=== PATIENT | male | born 1955 | race Caucasian/White ===

== ENCOUNTER → 2018-10-10 09:50 | Outpatient (CLI) | payer OTHER, SELFPAY ==
[2018-10-10 12:43] LABS: ALB/GLOB Ratio 1.1 RATIO (0.9-2.4); AST(SGOT) 109 U/L (15-37); Alanine Aminotransfer ALT/SGPT 85 U/L (16-61); Alkaline Phosphatase 91 U/L (45-117); Anion Gap 10 (5-15); BUN 14 mg/dL (7-18); BUN/Creat Ratio 18.1 RATIO (10-20); Calcium,Total 8.7 mg/dL (8.5-10.1); Chloride 102 mmol/L (98-107); Cholesterol 246 mg/dL (200); Creatinine, Serum 0.77 mg/dL (0.70-1.30); EST Glomerular Filtration Rate 108 mL/min (>60); Est Glom Filt Rate - Afr Amer 131 mL/min (>60); Globulin 3.5 g/dL (2.2-4.2); Glucose 104 mg/dL (74-106); High Density Lipoprotein 54 mg/dL; PSA,Total - Annual Screen 3.92 ng/mL (0.00-4.00); Potassium 3.3 mmol/L (3.5-5.1); Protein, Total 7.5 g/dL (6.4-8.2); Sodium Level 139 mmol/L (136-145); Thyroid Stim Hormone (TSH) 1.59 uIU/mL (0.358-3.74); Triglycerides 187 mg/dL; Very Low Density Lipoprotein 37 mg/dL (5-40)
== END ==
PROVIDERS: Family Provider Family Medicine; PCP Family Medicine; Visit Provider Family Medicine
DX: E11.9 Type 2 diabetes mellitus without complications (principal); Z12.5 Encounter for screening for malignant neoplasm of prostate
CPT/HCPCS: 36415; 80053; 80061; 84153; 84443; G0103

== ENCOUNTER 2019-09-18 22:14 | Emergency (ER) | payer OTHER, SELFPAY ==
[2019-09-18 22:18] VITALS: BP 145/91; PULSE 89; RESP 18; TEMP 36.5; O2SAT 100; BMI 26.4
--- NOTE | 2019-09-18 22:49 | CT_ITS ---
STUDY: CT BRAIN WITHOUT CONTRAST REASON FOR EXAM: Male, 64 years old. Laceration on the head. Status post fall. RADIATION DOSAGE (If Supplied By Facility): CTDIvol = ( 44.99 ) mGy, DLP = ( 897.35 ) mGycm TECHNIQUE: Transaxial CT imaging of the brain was performed without administration of intravenous contrast material. Individualized dose optimization techniques were used for this CT. COMPARISON: No relevant priors. FINDINGS: Normal soft tissue structures. Normal calvarium. Normal size ventricles and extra-axial spaces for the patient's age. Normal white matter tracts of the cerebral hemispheres. Normal basal ganglia and thalami. Normal brainstem. Normal cerebellum. There is no intracranial hemorrhage. There are no findings of an acute ischemic infarction. Normal visualized paranasal sinuses. CT/Brain/Head without Contrast IMPRESSION: Normal unenhanced CT scan of the brain. Electronically Signed: Daniela Grey MD at 23:38 EDT Tel , Service support ,
--- NOTE | 2019-09-18 22:49 | CT_ITS ---
STUDY: CT CERVICAL SPINE WITHOUT CONTRAST REASON FOR EXAM: Male, 64 years old. Laceration status post fall. RADIATION DOSAGE (If Supplied By Facility): CTDIvol = ( 22.60 ) mGy, DLP = ( 531.95 ) mGycm TECHNIQUE: High resolution transaxial imaging was performed without contrast material. Sagittal and coronal images were reconstructed. Individualized dose optimization techniques were used for this CT. COMPARISON: None FINDINGS: Normal craniovertebral junction. Normal anterior atlantoaxial articulation. Normal odontoid process. Normal cervical lordosis. Normal vertebral bodies and posterior osseous elements. C2-3: Normal endplates. Normal disc height and morphology. Normal central canal and intervertebral neuroforamina. C3-4: Normal endplates. Normal disc height and morphology. Normal central canal period severe left foraminal stenosis due to uncinate and marked facet hypertrophy. Mild right foraminal encroachment due to facet hypertrophy. C4-5: Normal endplates. Normal disc height and morphology. Normal central canal. Moderate left foraminal stenosis due to uncinate and facet hypertrophy. Right neural foramen is patent. C5-6: Normal endplates. Normal disc height and morphology. Normal central canal. Mild foraminal encroachment due to facet hypertrophy. C6-7: Normal endplates. Normal disc height and morphology. Normal central canal and intervertebral neuroforamina. C7-T1: Normal endplates. Normal disc height and morphology. Normal central canal and intervertebral neuroforamina. Normal visualized soft tissue structures. CT/Spine Cervical without Contras IMPRESSION: 1. No evidence of trauma. 2. Mild degenerative changes of the cervical spine. Electronically Signed: Daniela Grey MD at 23:48 EDT Tel , Service support ,
--- NOTE | 2019-09-18 23:36 | ED.DCSUM_ITS ---
- ER Visit Summary Date of Service: 09/18/19 Chief Complaint: Head injury History of Present Illness: The patient is a 64 M who was drinking alcohol much in football tonight. He apparently went up lost his balance fell and struck his head on the counter. No loss of consciousness. Tetanus up-to-date. No nausea vomiting. Nursing notes a large amount of bleeding coming from the right side of the scalp Physical Examination: Afebrile vital signs are stable Gen: Well-nourished well-developed strong smell of alcohol coming from the patient Head: Normocephalic 5 cm curvilinear laceration over the parietal scalp Eyes: Perrl EOMI ENT: TMs clear no rhinorrhea moist mucous membranes Neck: Supple no lymphadenopathy no JVD nontender CVS: Regular rate rhythm no murmurs normal S1-S2 Respiratory: No distress clear to auscultation bilaterally chest nontender Abdomen: Soft nontender nondistended normal bowel sounds no masses Back: Nontender Extremity: Nontender no edema Skin: Normal color no rash Neuro: alert orientated ?3 CN II-XII intact normal strength sensation reflexes gait cerebellar GCS is 15. Psych: Normal affect normal mood Test Results: CT of the brain and cervical spine were obtained which were negative for fracture or intracranial hemorrhage. Emergency Department Course and Treatment: The wound was locally anesthetized using 1% lidocaine with epinephrine. Digital pressure was applied which stopped the bleeding wound was closed using a total of 9 simple interrupted 4-0 Ethilon sutures. No further bleeding was noted. Wounds were cleansed and dressed. Stitches will need to be removed 5 to 7 days. Impression: 1. 5 cm scalp laceration with repair This note was generated with [employer] dictation software. It may contain incorrect words, spelling, and punctuation that were not noted in review of the chart prior to signing ED Disposition - Plan for ED Patient: Disposition: Home or Assisted Living Instructions: LACERATION, Scalp Referrals: Eron Moody MD [Primary Care Provider] - (in 5-7 days for suture removal)
[2019-09-19] VITALS: BP 107/64; PULSE 76; RESP 15; O2SAT 96
== END 2019-09-19 00:06 | disposition home or self-care (01) ==
PROVIDERS: Emergency Provider Emergency Medicine; Family Provider Family Medicine; PCP Family Medicine
DX: S01.01XA Laceration without foreign body of scalp, initial encounter (principal); W01.198A Fall on same level from slipping, tripping and stumbling with subsequent striking against other object, initial encounter; I10 Essential (primary) hypertension; F10.10 Alcohol abuse, uncomplicated; Y90.9 Presence of alcohol in blood, level not specified
CPT/HCPCS: 12001; 70450; 72125; 99283

== ENCOUNTER → 2019-10-14 07:39 | Outpatient (CLI) | payer OTHER, SELFPAY ==
[2019-09-18 22:18] VITALS: BMI 26.4
[2019-10-14 10:39] LABS: ALB/GLOB Ratio 1.2 RATIO (0.9-2.4); AST(SGOT) 29 U/L (15-37); Alanine Aminotransfer ALT/SGPT 34 U/L (16-61); Albumin, Serum 3.8 g/dL (3.2-5.0); Alkaline Phosphatase 68 U/L (45-117); Anion Gap 8 (5-15); BUN 22 mg/dL (7-18); BUN/Creat Ratio 36.1 RATIO (10-20); Chloride 105 mmol/L (98-107); Creatinine, Serum 0.61 mg/dL (0.70-1.30); EST Glomerular Filtration Rate 142 mL/min (>60); Est Glom Filt Rate - Afr Amer 171 mL/min (>60); Globulin 3.3 g/dL (2.2-4.2); Glucose 97 mg/dL (74-106); PSA,Total - Annual Screen 3.82 ng/mL (0.00-4.00); Potassium 3.7 mmol/L (3.5-5.1); Protein, Total 7.1 g/dL (6.4-8.2); Sodium Level 141 mmol/L (136-145)
== END ==
PROVIDERS: Family Provider Family Medicine; PCP Family Medicine; Referring Provider Family Medicine; Visit Provider Family Medicine
DX: E11.9 Type 2 diabetes mellitus without complications (principal); Z12.5 Encounter for screening for malignant neoplasm of prostate
CPT/HCPCS: 36415; 80053; 84153; G0103

== ENCOUNTER → 2020-10-19 08:55 | Outpatient (CLI) | payer OTHER, SELFPAY ==
[2020-02-04 14:58] VITALS: BMI 26.4
[2020-10-19 10:24] LABS: ALB/GLOB Ratio 1.4 RATIO (0.9-2.4); AST(SGOT) 31 U/L (15-37); Alanine Aminotransfer ALT/SGPT 43 U/L (16-61); Albumin, Serum 4.4 g/dL (3.2-5.0); Alkaline Phosphatase 68 U/L (45-117); Anion Gap 3 (5-15); BUN 16 mg/dL (7-18); Calcium,Total 9.2 mg/dL (8.5-10.1); Chloride 103 mmol/L (98-107); Cholesterol 239 mg/dL (200); Creatinine, Serum 0.76 mg/dL (0.70-1.30); EST Glomerular Filtration Rate 109 mL/min (>60); Est Glom Filt Rate - Afr Amer 132 mL/min (>60); Globulin 3.1 g/dL (2.2-4.2); Glucose 87 mg/dL (74-106); High Density Lipoprotein 60 mg/dL; PSA,Total - Annual Screen 4.93 ng/mL (0.00-4.00); Potassium 3.7 mmol/L (3.5-5.1); Protein, Total 7.5 g/dL (6.4-8.2); Sodium Level 138 mmol/L (136-145); Triglycerides 143 mg/dL; Very Low Density Lipoprotein 29 mg/dL (5-40)
== END ==
PROVIDERS: PCP Family Medicine; Visit Provider Family Medicine
DX: E11.9 Type 2 diabetes mellitus without complications (principal); E78.5 Hyperlipidemia, unspecified; Z12.5 Encounter for screening for malignant neoplasm of prostate
CPT/HCPCS: 36415; 80053; 80061; 84153; G0103

== ENCOUNTER → 2021-05-04 08:44 | Outpatient (CLI) | payer MEDICARE, OTHER, SELFPAY ==
[2020-02-04 14:58] VITALS: BMI 26.4
--- NOTE | 2021-05-04 08:50 | AAAS_ITS ---
Reason For Study: AAA Aorta Measurements Aorta Doppler Measurements Proximal aorta measures1.76 x 1.80cm. in cross- Peak systolic flow velocities within the proximal sectional axis. aorta measure 101.5 cm/sec. Proximal aorta measures1.75cm. in longitudinal Peak systolic flow velocities within the mid aorta axis. measure 119.8 cm/sec. Mid aorta measures1.66 x 1.70cm. in cross- Peak systolic flow velocities within the distal sectional axis. aorta measure 99.7 cm/sec. Mid aorta measures1.68cm. in longitudinal axis. Distal aorta measures1.83 x 1.80cm. in cross- sectional axis. Distal aorta measures1.80cm. in longitudinal axis. Left Iliac Artery Left iliac artery measures 1.22 x 1.21 cm. in the cross-sectional axis. Left iliac artery measures 1.19 cm. in the longitudinal axis. Peak systolic velocity in the left iliac artery measures 89.2 cm/sec. Right Iliac Artery Right iliac artery measures 1.36 x 1.30 cm. in the cross-sectional axis. Right iliac artery measures 1.20 cm. in the longitudinal axis. Peak systolic velocity in the right iliac artery measures 78.3 cm/sec. Procedure Aorta IVC Iliac vasculature or bypass grafts 98617. Exam performed in department. VL/AAA Screening Interpretation Summary The dimensions of the intra-abdominal aorta appear normal, without evidence of aneurysmal dilatation. The iliac arteries are also normal in caliber bilaterally. The intr a-abdominal aorta and iliac arteries are patent, demonstrating normal, pulsatile arterial flow and no rmal peak systolic velocities. Ordering Physician: Eron Moody Referring Physician: Eron Moody Performed By: Trinity Mon RVT and Student
== END ==
PROVIDERS: PCP Family Medicine; Referring Provider Family Medicine; Visit Provider Family Medicine
DX: I71.4 Abdominal aortic aneurysm, without rupture (principal)
CPT/HCPCS: 76706

== ENCOUNTER → 2021-09-27 12:32 | Outpatient (CLI) | payer MEDICARE, OTHER, SELFPAY ==
--- NOTE | 2021-09-27 12:37 | RAD_ITS ---
STUDY: X-RAY - UNILATERAL RIBS ( RIGHT ) REASON FOR EXAM: Male, 66 years old. Right-sided posterior rib pain following a fall. TECHNIQUE: 4 view(s) of the ribs. COMPARISON: None. FINDINGS: There is nondisplaced vertical fracture through the posterior lateral aspect of the right 11th rib. The visualized lung is clear and expanded. RAD/Ribs Unil 2V No CXR IMPRESSION: Nondisplaced vertical fracture along the posterior lateral aspect of the right 11th rib. Electronically Signed: Mauricio Ruiz MD at 13:23 EDT , Service support ,
--- NOTE | 2021-09-27 12:37 | RAD_ITS ---
STUDY: X-RAY - LUMBAR SPINE REASON FOR EXAM: Male, 66 years old. BACKACHE TECHNIQUE: 4 view(s) of the lumbar spine were obtained. COMPARISON: None FINDINGS: Normal lumbar lordosis. There is no substantial scoliosis. There is mild anterolisthesis of L5 on S1 (7.3 mm). There is multilevel endplate spondylosis of the lumbar vertebrae. There is multi-level degenerative disc disease with multi-level disc space narrowing. There is no demonstrated fracture. There is bilateral pars defect of L5. Bilateral facet hypertrophy, more severe from L3 to S1. The soft tissue structures are unremarkable. RAD/L/S Spine Min 4 Views IMPRESSION: Multilevel spondylosis/degenerative disease. Mild anterolisthesis of L5 on S1 with pars defect of L5. No acute fracture. Electronically Signed: Gabriela Rivas MD at 1:27 EDT , Service support ,
--- NOTE | 2021-09-27 12:45 | RAD_ITS ---
STUDY: X-RAY - THORACIC SPINE REASON FOR EXAM: Male, 66 years old. BACKACHE TECHNIQUE: 3 view(s) of the thoracic spine were obtained. COMPARISON: 04/06/2017. FINDINGS: Normal kyphosis of the thoracic spine. There is no substantial scoliosis. Questionable partial fusion of approximately T6-T7 vertebral bodies with mild wedging, unchanged since 04/06/2017. There is multilevel endplate spondylosis of the thoracic vertebrae. There is multilevel disc space narrowing of the thoracic spine. The soft tissue structures are unremarkable. RAD/Thoracic Spine 2 Views IMPRESSION: Multilevel disc degenerative disease with no acute fracture or subluxation. Electronically Signed: Gabriela Rivas MD at 0:57 EDT , Service support ,
--- NOTE | 2021-09-27 12:58 | RAD_ITS ---
STUDY: X-RAY CHEST REASON FOR EXAM: Male, 66 years old. Fall, right posterior lower rib pain TECHNIQUE: PA and lateral views of the chest. COMPARISON: None. FINDINGS: The lungs are clear and expanded. There is no demonstrated pleural abnormality. Normal size heart. Normal mediastinum and pilar. Normal visualized pulmonary arteries. Normal visualized aortic arch and descending thoracic aorta. There are diffuse degenerative changes of the visualized thoracic spine. Normal visualized ribs, clavicles, and shoulders. There is no demonstrated abnormality of the visualized soft tissue structures of the upper abdomen. RAD/Chest PA and Lateral IMPRESSION: Normal x-ray examination of the chest. Electronically Signed: Mauricio Ruiz MD at 13:21 EDT , Service support ,
== END ==
PROVIDERS: PCP Family Medicine; Referring Provider Family Medicine; Visit Provider Family Medicine
DX: M54.9 Dorsalgia, unspecified (principal); R07.81 Pleurodynia
CPT/HCPCS: 71046; 71100; 72070; 72110

== ENCOUNTER 2021-10-19 09:06 | Outpatient (CLI) | payer MEDICARE, OTHER, SELFPAY ==
[2021-10-19] MEDS: 0.9% Saline Lock 10 ML Syringe IV (09:29)
[2021-10-19 09:35] VITALS: BP 147/88; PULSE 75; RESP 16; TEMP 37.3; O2SAT 97; BMI 29.4
[2021-10-19 10:06] VITALS: BP 131/72; PULSE 72; RESP 16; TEMP 37; O2SAT 98
[2021-10-19 11:03] VITALS: BP 146/80; PULSE 80; RESP 16; TEMP 36.8; O2SAT 100
== END 2021-10-19 11:10 | disposition home or self-care (01) ==
LOC: MS3OUT 09:07 → MS3 09:07
PROVIDERS: PCP Family Medicine; Referring Provider Nurse Practitioner Adult Health; Visit Provider Nurse Practitioner Adult Health
DX: Z23 Encounter for immunization (principal); U07.1 COVID-19
CPT/HCPCS: J7050; M0245; Q0245; A4216

== ENCOUNTER → 2022-12-29 | Outpatient (CLI) | payer MEDICARE, OTHER, SELFPAY ==
--- NOTE | 2022-12-29 14:13 | RAD_ITS ---
STUDY: X-RAY - LUMBAR SPINE REASON FOR EXAM: Male, 67 years old. SCIATICA TECHNIQUE: 5 view(s) of the lumbar spine were obtained including oblique views. COMPARISON: Comparison is made with prior study dated 09/27/2021. FINDINGS: Normal lumbar lordosis. There is no substantial scoliosis. Grade 1 anterolisthesis of L5 on S1 with evidence of pars defect of the L5 vertebrae. There is multilevel endplate spondylosis of the lumbar vertebrae. There is multi-level degenerative disc disease with multi-level disc space narrowing. Facet joint osteoarthritis. There is mild atherosclerotic calcification of the abdominal aorta without a demonstrated aneurysm. RAD/L/S Spine Min 4 Views IMPRESSION: Degenerative changes of the spine, as detailed above. Facet joint osteoarthritis. Stable grade 1 anterolisthesis of L5 on S1 with pars defect of the L5 vertebrae. Electronically Signed: Mauricio Ruiz MD at 8:31 EST ,
--- NOTE | 2022-12-29 14:15 | RAD_ITS ---
INDICATION: METATARSALGIA EXAMINATION/TECHNIQUE: X-RAY - RIGHT XR Foot Min 3 Views COMPARISON: None. FINDINGS: SOFT TISSUES: No soft tissue swelling or gas. No radiopaque foreign body. BONES/JOINTS: No acute fracture or subluxation.. Spurring of the calcaneus. Normal alignment. Preservation of the joint space.. No sclerotic or destructive changes observed. RAD/Foot min 3 Views IMPRESSION: No acute bony injury. Electronically Signed: Elpidio Julian DO at 23:19 EST ,
== END | disposition home or self-care (01) ==
PROVIDERS: PCP Family Medicine; Referring Provider Family Medicine; Visit Provider Family Medicine
DX: M77.41 Metatarsalgia, right foot (principal); M54.31 Sciatica, right side
CPT/HCPCS: 72110; 73630

== ENCOUNTER → 2023-06-28 | Outpatient (CLI) | payer MEDICARE, OTHER, SELFPAY ==
--- NOTE | 2023-06-28 14:00 | NEURO ---
NCS and/or EMG Patient Report Ordering Doctor: Matt Oropeza DATE OF SERVICE: 06/28/23 Durga presents for electrodiagnostic testing of the lower limbs. He had spinal fusion in January 2023. Following this he reports numbness, tingling and heaviness in both legs. Electrodiagnostic Findings: Right peroneal motor nerve demonstrates mildly prolonged latency with normal amplitude and conduction velocity. Left peroneal motor nerve demonstrates mildly prolonged distal latency with normal amplitude and conduction velocity. Tibial motor responses within normal limits bilaterally. Prolonged tibial and peroneal F waves. Prolonged H reflex bilaterally. Prolonged sural latency is noted bilaterally. Normal superficial peroneal response on the right side. Prolonged left superficial peroneal latency. Needle EMG testing was performed in the lower limbs. Arm muscles tested showed no evidence of denervation with normal motor unit action potentials. Testing was performed in the lumbar paraspinals. 1+ positive sharp waves were noted bilaterally. Electrodiagnostic impression: This is an abnormal study in the lower limbs 1. Electrodiagnostic findings suggestive of a mild, primarily sensory polyneuropathy. 2. There is no electrodiagnostic evidence for lumbosacral radiculopathy. The presence of positive sharp waves in the lumbar paraspinals often occurs following spinal surgery. Multi Select Codes Neurology Neurology Interp Codes: 79849-74 Musc test done w/n test comp (interp) (2) and 88086-80 Nrv cndj test 9-10 studies (interp)
== END | disposition home or self-care (01) ==
LOC: PSN 08:24
PROVIDERS: PCP Family Medicine; Referring Provider Podiatrist; Visit Provider Podiatrist
DX: M54.16 Radiculopathy, lumbar region (principal)
CPT/HCPCS: 95886; 95911

== ENCOUNTER → 2023-09-22 | Outpatient (CLI) | payer MEDICARE, OTHER, SELFPAY ==
[2023-09-22 10:53] LABS: AST(SGOT) 76 U/L (15-37); Alanine Aminotransfer ALT/SGPT 76 U/L (16-61); Albumin, Serum 3.5 g/dL (3.2-5.0); Alkaline Phosphatase 87 U/L (45-117); Anion Gap 3 (5-15); BUN 21 mg/dL (7-18); BUN/Creat Ratio 21.6 RATIO (10-20); Calcium,Total 9.1 mg/dL (8.5-10.1); Chloride 106 mmol/L (98-107); Cholesterol 207 mg/dL (200); Creatinine, Serum 0.97 mg/dL (0.70-1.30); EST Glomerular Filtration Rate 82 mL/min (>60); Est Glom Filt Rate - Afr Amer 99 mL/min (>60); Globulin 3.5 g/dL (2.2-4.2); Glucose 137 mg/dL (74-106); High Density Lipoprotein 47 mg/dL; PSA,Total - Annual Screen 6.98 ng/mL (0.00-4.00); Potassium 3.6 mmol/L (3.5-5.1); Sodium Level 138 mmol/L (136-145); Thyroid Stim Hormone (TSH) 1.37 uIU/mL (0.358-3.74); Triglycerides 200 mg/dL; Very Low Density Lipoprotein 40 mg/dL (5-40)
[2023-09-22 10:59] LABS: Vitamin B12 1815 pg/mL (211-911)
== END | disposition home or self-care (01) ==
LOC: MFPLAB 08:04
PROVIDERS: PCP Family Medicine; Visit Provider Family Medicine
DX: E11.9 Type 2 diabetes mellitus without complications (principal); Z12.5 Encounter for screening for malignant neoplasm of prostate
CPT/HCPCS: 36415; 80053; 80061; 82607; 84153; 84443; G0103

== ENCOUNTER → 2023-11-02 | Outpatient (CLI) | payer MEDICARE, OTHER, SELFPAY ==
--- NOTE | 2023-11-02 08:14 | MRI_ITS ---
PROSTATE MRI HISTORY/INDICATION: Elevated PSA TECHNIQUE: Multiplanar, multisequence imaging of the pelvis in accordance with PIRADS recommendations before and after intravenous administration of 20 mL clariscan on a 1.5 TE platform using external phased array coil. Dedicated 3 plane small field of view T2 FSE, axial diffusion-weighted imaging with width B values 50-800 s/mm2 and calculated a=8601 s/mm2 and ADC map; and axial 3-D dynamic contrast enhanced T1 weighted images with temporal resolution in 3 mm slice thickness in addition to full pelvis postcontrast T1-weighted imaging. COMPARISON:None FINDINGS: Size: 3.3 x 5.0 x 4.6 (Lx W x H) cm for 39.5 cubic cm. Quality: Excellent Hemorrhage: Not present Peripheral zone: Homogenous Transition zone: Moderate heterogeneity consistent with prostatic hyperplasia. Focal finding as below. Lesion #1: Location: right midgland peripheral zone anterior on series 8 image 19, axial T2 Size: 1.1 x 1.1 cm T2: homogeneous, moderately hypointense without extraprostatic extension, sequence category 4/5 DWI: focal markedly hyperintense on high b-value DWI and markedly hypointense on ADC without extraprostatic extension, sequence category 4/5 DCE: No early enhancement, negative. However, limited due to lack of dynamic postcontrast images. Prostate margin: No clear extraprostatic extension Lesion overall PI-RADS: 4/5 Neurovascular bundles: Not involved Seminal vesicles: not involved Lymph nodes: no lymphadenopathy Bones: no osseous metastases suggested. Fusion hardware of the lower lumbar spine. Other pelvic organs: normal MRI/Pelvis W/WO Contrast IMPRESSION: 1. PI-RADS 4 - High (clinically significant cancer is likely to be present). 2. Images targeting lesion seen in PACS for review by the clinical service. PI?RADSR v2.1 Assessment Categories PI-RADS 1 ? Very low (clinically significant cancer is highly unlikely to be present) PI-RADS 2 ? Low (clinically significant cancer is unlikely to be present) PI-RADS 3 ? Intermediate (the presence of clinically significant cancer is equivocal) PI-RADS 4 ? High (clinically significant cancer is likely to be present) PI-RADS 5 ? Very high (clinically significant cancer is highly likely to be present) Electronically Signed: Silvano Cronin MD ([place]) at 11:23 EST ,
[2023-11-02 08:44] LABS: CREATININE FINGERSTICK < 1.0 mg/dL (0.70-1.30); EGFR FINGERSTICK > 60.0000 mL/min (>60)
== END | disposition home or self-care (01) ==
LOC: MRI 07:56
PROVIDERS: PCP Family Medicine; Referring Provider Urology; Visit Provider Urology
DX: R97.20 Elevated prostate specific antigen [PSA] (principal)
CPT/HCPCS: 72197; A9575

== ENCOUNTER → 2023-11-16 | Outpatient (CLI) | payer MEDICARE, OTHER, SELFPAY ==
--- NOTE | 2023-11-16 06:57 | EKG12_ITS ---
Test Reason : PREOP Blood Pressure : / mmHG Vent. Rate : 078 BPM Atrial Rate : 078 BPM P-R Int : 140 ms QRS Dur : 082 ms QT Int : 398 ms P-R-T Axes : -22 -12 006 degrees QTc Int : 453 ms Normal sinus rhythm Nonspecific ST abnormality Abnormal ECG Confirmed by ANGELIC RODRIGUEZ, HEBER ([id number]), video tape editor KELBY MITCHELL ([id number]) on 11/17/2023 1:35:14 PM Referred By: Hussain Gilliland Confirmed By:HEBER ATWOOD MD
[2023-11-16 08:00] LABS: Hematocrit 41.9 % (40-54); Hemoglobin 14.4 g/dL (13.0-16.5); Mean Corp Hgb Conc 34.4 g/dL (32-36); Mean Corpuscular Hgb 33.3 pg (27.0-32.0); Mean Corpuscular Volume 96.8 fL (80-94); Mean Platelet Vol. 10.5 fl (6.2-12.0); Platelet Count 160 K/mm3 (150-450); RBC Distribution Width SD 39.6 fl (35.1-43.9); Red Blood Count 4.33 M/mm3 (4.6-6.2); White Blood Count 6.5 K/mm3 (4.4-11.0)
[2023-11-16 08:28] LABS: Anion Gap 8 (5-15); BUN 24 mg/dL (7-18); BUN/Creat Ratio 15.7 RATIO (10-20); Calcium,Total 9.2 mg/dL (8.5-10.1); Chloride 101 mmol/L (98-107); Creatinine, Serum 1.53 mg/dL (0.70-1.30); EST Glomerular Filtration Rate 48 mL/min (>60); Est Glom Filt Rate - Afr Amer 59 mL/min (>60); Glucose 160 mg/dL (74-106); Potassium 3.7 mmol/L (3.5-5.1); Sodium Level 138 mmol/L (136-145)
== END | disposition home or self-care (01) ==
LOC: PSN 06:56
PROVIDERS: PCP Family Medicine; Referring Provider Urology; Visit Provider Urology
DX: Z01.810 Encounter for preprocedural cardiovascular examination (principal); Z01.812 Encounter for preprocedural laboratory examination
CPT/HCPCS: 36415; 80048; 85027; 93005

== ENCOUNTER 2023-12-15 12:06 | Day surgery (SDC) | payer MEDICARE, OTHER, SELFPAY ==
--- NOTE | 2023-12-15 | IMM_PTH ---
PATHOLOGY RESULTS PATIENT: TALITA MANSFIELD [place] [facility] [place][id number] AGE/SX: 68/M ROOM: RE12/15/[address]: Dr. Hussain Gilliland MD : [id number] BED: DIS: 12/15/2023 SPEC #: [id number] RECD: 12/19/23 12:19 STATUS: LIZBET REQ #: [id number] KEYSHA: 12/15/23 00:[address]: Hussain Gilliland DEPT: IMMUNOHISTOCHEMISTRY RECD BY: Neena Medrano ENTERED: 12/19/23 12:20 SP TYPE: IMMUNO OTHR DR: Dr. Dale Moody MD Tissues: PROSTATE RIGHT PROSTATE LEFT Procedures: 34BE12 (add) P40 (add) 34BE12 (initial) PHYSICIAN & INSTITUTION [place] [id number] SPECIMEN INFORMATION: Tissue Source: C - Right prostate, posterior apex, F - Left prostate, posterior apex Clinical Info: Elevated PSA Specimen Number: [id number] C & F CPT code: 26893, 57702 x3 METHODOLOGY: Deparaffinized sections of prefer/formalin-fixed tissue or PAP/DQ stained slides are incubated with monoclonal/polyclonal antibodies/oligonucleotide probes. Localization is made via biotin free immunoperoxidase method. Appropriate controls are performed and reacted as expected. Results on target cell population are indicated in the following table: RESULTS: ANTIBODY / CLONE RESULT Block C P40 (BC28) negative 34BE12 (34BE12) negative Block F P40 (BC28) negative 34BE12 (34BE12) negative These tests were developed and their performance characteristics determined by [facility]. They may not have been cleared or approved by the U.S. Food and Drug Administration. The FDA has determined that such clearance or approval is not necessary. The above immunohistochemical/dualISH markers are ordered and reviewed by the Pathologist. INTERPRETATION: C. Right prostate, posterior apex, core biopsy: Adenocarcinoma. F. Left prostate, posterior apex, core biopsy: Adenocarcinoma. SJ:migue 12/20/2023
--- OUTSIDE RECORDS SUMMARY | 2023-12-15 12:10 | XMS RPT_ITS | CCD ---
Author Name Unknown Address [address] [place] [address] Organization [facility] Care Team Providers Care Plant Physiology Teacher Name Role Phone Bree Moody MD Primary Care Provide r CHAN MOLINA Admitting Unavailable CHAN MOLINA Attending Unavailable BREE MOODY Primary Care Unavail able GUNNAR NEVILLE Consulting Unavailable GUNNAR NEVILLE Consulting Unavailable GUNNAR NEVILLE Consulting Unavailable CHAN MOLINA Referring Unavailable BREE MOODY Primary Care Unavail able Medications Current Medications Medication Drug Class(es) Dates Sig (Normalized) Sig (Original) hydroCHLOROthiazide / Lisinopril (4 sources) Thiazide Diuretic, Angiotensin Converting Enzyme Inhibitor Start: 02-26-2023 End: 02-25-2023 take 1 dose by mouth once daily oral, Daily, First dose on 02/26/23 at 0900 May resume postop day 1. H old for systolic blood pressure less than 110 Give both components for ZESTORETIC product Completed/Discontinued Medications Medication Drug Class(es) Dates Sig (Normalized) Sig (Original) acetaminophen 500 mg oral tablet (2 sources) Start: 02-24-2023 End: 02-25-2023 acetaminophen (TYLENOL) tablet 1,000 mg Problems Problem Classification Problem Date Documented Da te Episodic/Chronic Residual codes; unclassified (1 source) Pain; Translations: [Pain, unspecified] Episodic Residual codes; unclassified (1 source) Pain, unspecified; Translations: [Pain, unspecified] Onset: 02-24-2023 Episodic Spondylosis; intervertebral disc disorders; other back problems (7 sources) Lumbar spine ankylosis; Translations: [Fusion of spine, lumbar region] Onset: 02-24-2023 02-24-2023 Episodic Results Test Name Value Interpretation Reference Range Facil ity Vital Signs Date Time Vital Sign Value Performing Clinician Andrew chamberlain 02-25-2023 07:40-0400 SaO2% (BldA) [Mass fraction] 92 % Chan Molina MD Work Phone: [facility] 02-25-2023 07:38-0400 Body temperature 96.8 [degF] Chan Molina MD Work Phone: [facility] 02-25-2023 07:38-0400 Diastolic blood pressure 91 mm[Hg] Chan Molina MD Work Phone: [facility] 02-25-2023 07:38-0400 Heart rate 62 /min Chan Molina MD Work Phone: [facility] 02-25-2023 07:38-0400 Respiratory rate 16 /min Chan Molina MD Work Phone: [facility] 02-25-2023 07:38-0400 Systolic blood pressure 158 mm[Hg] Chan Molina MD Work Phone: [facility] 02-24-2023 08:49-0400 Body height 177.8 cm Chan Molina MD Work Phone: [facility] 02-24-2023 08:49-0400 Body mass index (BMI) [Ratio] 31.28 kg/m2 Chan Molina MD Work Phone: [facility] 02-24-2023 08:49-0400 Body weight 98.9 kg Chan Molina MD Work Phone: [facility] Encounters Encounter Date Encounter Type Care Provider Facility Start: 02-24-2023 End: 02-25-2023 Evaluation and management of inpatient CHAN MOLINA [facility] Start: 02-24-2023 End: 02-25-2023 Evaluation and management of inpatient Chan Molina MD Work Phone: [facility] Start: 02-24-2023 ambulatory CHAN MOLINA [facility] Start: 02-24-2023 End: 02-24-2023 Evaluation and management of inpatient [facility] Start: 02-24-2023 End: 02-24-2023 Subsequent hospital visit by physician [facility] Procedures Date Procedure Procedure Detail Performing Clinician Start: 02-25-2023 Basic metabolic pane l calcium total Ponce Garcia MD Work Phone: Start: 02-25-2023 CBC W Auto Different ial panel - Blood Ponce Garcia MD Work Phone: Start: 02-24-2023 PULSE OXIMETRY, CONTINUOUS Ponce Garcia MD Work Phone: Start: 02-24-2023 XR FLUORO UP TO 1 HO UR (STATISTICS)(NO REPORT) Chan Molina MD Work Phone: Start: 02-24-2023 Antibody screen CHAN SIMENTAL Plan of Treatment Date Care Activity Detail Author Start: 04-15-2030 DTaP,Tdap,and Td Vac cines (2 - Td or Tdap) DTaP,Tdap,and Td Vaccines (2 - Td or Tdap) [facility] Start: 02-26-2024 Hypertension/CHF/CAD Annual BMP Blood Test Hypertension/CHF/CAD Annual BMP Blood Test [facility] Start: 02-25-2024 Falls Risk Assessment Falls Risk Ass essment [facility] Start: 07-28-2023 Influenza vaccination Influenz a Vaccine (Season Ended) [facility] Start: 01-27-2023 Adolescent depressio n screening assessment Depression Screening [facility] Start: 01-27-2023 Hepatitis C screening Hepatitis C Sc reening [facility] Start: 01-27-2023 Lipid panel Cholesterol Sc reening (Lipid Panel) [facility] Start: 01-27-2023 Medicare Annual Well ness Visit Medicare Annual Wellness Visit [facility] Start: 01-27-2023 Screening for malign ant neoplasm of colon Colorectal Cancer Screening: Colonoscopy [facility] Start: 01-27-2023 Social Influencers o f Health Screening Social Influencers of Health Screening [facility] Start: 04-21-2022 Pneumococcal Vaccine : 65+ Years (2 - PCV) Pneumococcal Vaccine: 65+ Years (2 - PCV) [facility] Start: 2006 Zoster Vaccines (1 of 2) Zoster Vacc mabel (1 of 2) [facility] Start: 1955 COVID-19 Vaccine (#1) COVID-19 Vacci ne (#1) [facility] Payers Date Payer Category Payer Unknown [employer] [id number] 2022-Present [address] [place] [address] [id number] 2022 Unknown [id number] 2021 Medicare MEDICARE MEDICAR E PART A & B [id number] 2021-Present [address] [place] [address] Medicare [id number] 2021 Medicare [id number] 1955 Unknown [id number] 1955 Unknown [id number] Social History Date Type Detail Facility Start: 02-21-2023 Tobacco smoking stat [facility] Never smoked tobacco [facility] Start: 02-21-2023 Tobacco use and exposure User of smo keless tobacco [facility] History of tobacco use Chews Tobacco [facility] Start: 02-24-2023 Alcohol intake Ex-drinker (finding) [facility] Start: 02-24-2023 Alcohol intake [facility] Start: 1955 Sex Assigned At Not on file [facility] Start: 02-14-2023 End: 02-24-2023 Exposure to SARS-CoV-2 (event) Not sure [facility] Medical Equipment Procedure Code Equipment Code Equipment Origin al Text Equipment Identifier Dates Pre Bent Melchor 5.5x65mm - Sn/A - [id number] Start: 02-24-2023 Clinical Notes 02-24-2023 to 02-25-2023 Yaima Mendoza RN - 02/25/2023 12:10 PM Rebel Giron RN - 02/25/2023 11:37 AM Nico GianaCHILO lopez - 02/25/2023 7:40 AM Anna Raygoza MD - 02/25/2023 6:02 AM EDT Note Date & Type Note Facility 02-25-2023 History of Presen t illness Narrative All discharge criteria for discharge to home met, medically & surgically. Discharge education and instructions presented by ishmael Valencia RN. Verbalized understanding. Questions answered, concern denied. Plasma Flow activated For trip home to [place], to car via wheelchair Dr. Molina rounded earlier this am and has ordered the patient's drain to be removed and a dressing applied. Patient is doing well and may discharge home today once all goals are met and the patient is cleared per Gen Med. AM HGB 14.4. Patient may resume routine baby aspirin starting tomorrow. Discharge pain rx was e-scribed to the patient's pharmacy for post op pain mgt. CM completed the discharge folder and placed at the nurses station [facility] Physical Therapy Treatment PT Discharge Recommendations: Home independent Distance Ambulated (ft): 225 Device: Rolling walker Orthopedic Precautions: Back Precautions Prosthesis/Orthosis Used: (LSO OOB > 15 minutes) PT - OK to Discharge: Yes Fall prevention education provided including use of call light in hospital, use of appropriate assistive device, safe mobility techniques, and safety measures at home. Continue PT as per POC. Subjective Pt agreeable to Pt session and cleared by WHITNEY Erwin Objective Pt completed ambulation, transfers and curb step training. Review of spine precautions and LSO wear and care. Will continue to follow per POC. Pt has met PT mobility goals for home going. 02/25/23 0740 General Family/Caregiver Present No PT Time Calculation PT Start Time 0740 PT Stop Time 0755 PT Time Calculation (min) 15 min Precautions Medical Precautions Fall Risk Safety Interventions Call louis within reach;Gait belt Orthopedic Precautions Back Precautions Orthoses Applied Don in Sitting Prosthesis/Orthosis Used (LSO OOB > 15 minutes) Pain Assessment Pain Assessment 0-10 Pain Score 3 Pain Type Surgical pain Pain Location Back Pain Orientation Lower Cognition Arousal/Alertness Appropriate responses to stimuli Orientation Level Oriented X4 Following Commands Follows all commands and directions without difficulty Bed Mobility Bed Mobility Comments SBA Transfers Transfer Comments SBA Ambulation Walking Assistance (SBA) Device Rolling walker Pattern (steady) Distance Ambulated (ft) 225 Comments Cueing for posture awareness Curb 1 step (curb): Assistance Contact guard Curb Management Technique/Device No rails;With walker;With gait belt Curb Comments Pt met curb step goal Strength RLE R Ankle Dorsiflexion 5/5 R Ankle Plantar Flexion 5/5 Strength LLE L Ankle Dorsiflexion 5/5 Procedures Procedures Gait Training;Therapeutic Activity Gait Training Gait Training Time Entry 10 Gait Training Activity 1 gait with wheeled walker Gait Training Activity 2 curb step training Therapeutic Activity Therapeutic Activity Time Entry 5 Therapeutic Activity 1 spine precautions Therapeutic Activity 2 transfers/bed mobility Therapeutic Activity 3 LSo wear and care PT Assessment Medical Staff Made Aware Yes Comments Whitney Erwin-PT goals met Plan PT - OK to Discharge Yes Goals/Education Encounter Problems Encounter Problems (Active) There are no active problems. Encounter Problems (Resolved) Template: Physical Therapy Problem: PT Short Term Goals Dates: Start: 02/24/23 Resolved: 02/25/23 Goal: Pt will perform bed mobility via log roll with CGA (Resolved) Dates: Start: 02/24/23 Expected End: 02/25/23 Met: 02/25/23 Outcomes Date/Time User Outcome 02/25/23 0830 Marina Erazo PTA Completed Goal: Pt will perform transfers with SBA/FWW (Resolved) Dates: Start: 02/24/23 Expected End: 02/25/23 Met: 02/25/23 Outcomes Date/Time User Outcome 02/25/23 0830 Marina Erazo PTA Completed Goal: Pt will ambulate x150 ft with SBA/FWW (Resolved) Dates: Start: 02/24/23 Expected End: 02/25/23 Met: 02/25/23 Outcomes Date/Time User Outcome 02/25/23 0830 Marina Erazo PTA Completed Goal: Pt will ascend/descend platform step with CGA/FWW (Resolved) Dates: Start: 02/24/23 Expected End: 02/25/23 Met: 02/25/23 Outcomes Date/Time User Outcome 02/25/23 0830 Marina Erazo PTA Completed Goal: Pt will indicate understanding of back precautions and LSO wear/care schedule (Resolved) Dates: Start: 02/24/23 Expected End: 02/25/23 Met: 02/25/23 Outcomes Date/Time User Outcome 02/25/23 0830 Marina Erazo PTA Completed Education Documentation Precautions, taught by Marina Erazo PTA at 02/25/2023 7:40 AM. Learner: Patient Readiness: Acceptance Method: Explanation, Demonstration Response: Verbalizes Understanding Comment: Safety with mobilityspine precautionsLSo wear and care Body Mechanics, taught by Marina Erazo PTA at 02/25/2023 7:40 AM. Learner: Patient Readiness: Acceptance Method: Explanation, Demonstration Response: Verbalizes Understanding Comment: Safety with mobilityspine precautionsLSo wear and care Mobility Training, taught by Marina Erazo PTA at 02/25/2023 7:40 AM. Learner: Patient Readiness: Acceptance Method: Explanation, Demonstration Response: Verbalizes Understanding Comment: Safety with mobilityspine precautionsLSo wear and care Explain call button use, taught by Marina Erazo PTA at 02/25/2023 7:40 AM. Learner: Patient Readiness: Acceptance Method: Explanation, Demonstration Response: Verbalizes Understanding Comment: Safety with mobilityspine precautionsLSo wear and care Teach fall prevention measures, taught by Marina Erazo PTA at 02/25/2023 7:40 AM. Learner: Patient Readiness: Acceptance Method: Explanation, Demonstration Response: Verbalizes Understanding Comment: Safety with mobilityspine precautionsLSo wear and care Education Comments No comments found. [facility] - PROGRESS NOTE Patient Name : Talita Appiah Patient : 1955 Patient Admit Date : 02/24/2023 Admission Diagnosis : Postoperative Medical Comanagement Provider Name : John Paul Raygoza MD Date Of Service : 02/25/23 IMPRESSION AND PLAN : Lumbar stenosis with neurogenic claudication L4-L5, L5-S1: Status/post Right and Left Posterolateral fusion L4-L5, L5-S1; Laminectomy with partial facetectomy and foraminotomy L4-L5, L5-S1 by Dr. Molina on 02/24/23. Management of NSAIDs, anticoagulants, and antibiotics will be deferred to the primary surgical service per protocol. I have seen the patient personally today and reviewed available lab results on this patient. A medical consult has been ordered by the surgeon for perioperative management of the patient's chronic medical conditions summarized below. Deep Venous Thrombosis Prophylaxis: DVT prophylaxis is deferred to the primary surgical service per protocol. The use of current ACCP guidelines is recommended. Encouraged lower extremity venous return exercises. Leukocytosis (D72.829): WBC count elevated at 11.4 on 02/25. Patient does not currently have localizing signs or symptoms of infection. Defer wound exams to the primary surgical service. The patient did receive IV steroids perioperatively. Hypokalemia (E87.6): Potassium level mildly low at 3.4 on 02/25. Supplementation ordered. Expect solid oral intake to increase today. HTN (I10) Chronic condition & present on admission - controlled on home prescription medications, which have been reordered. Home regime includes lisinopril/hydrochlorothiazide I have ordered as needed clonidine. - Acceptable postoperative control, last reading noted at 158/91 on 02/25. Continue home prescription antihypertensive medications and as needed clonidine. Have adjusted the dosing parameters on the as needed clonidine. Hyperlipidemia- (Z85.5) chronic condition and present upon admission. Dietary controlled historically. Does support use of fish oil which will be held to reduce bleeding risk complications for now. Obesity ( E 66.9 ) BMI - Body mass index is 31.28 kg/m . It has been recommended they follow up with their PCP regarding weight loss intervention. Obesity increases the risks for postoperative hypoxia and hypoventilation. This patient will require close monitoring of respiratory status with frequent vitals and continuous pulse oximetry, especially if any sedatives or narcotic medications are given. Obstructive sleep apnea risk factors-VICKY screening questionnaire suggest this patient has elevated risk for obstructive sleep apnea. Accordingly this patient should be considered at elevated risk for perioperative complications related to sleep apnea. Would recommend monitoring with continuous pulse oximetry, cautious use of opiate-based pain medications and utilization of CPAP/BiPAP as needed Subjective The patient was seen in their room on the inpatient unit. They were resting quietly prior to visit and appeared comfortable during the visit. No new complaints this morning. REVIEW OF SYSTEMS Cardiovascular: Denied chest pain or chest pressure Respiratory: Denies dyspnea or cough Gastrointestinal: Denied abdominal pain, denied nausea or vomiting, reports passing flatus since surgery Genitourinary: Denies dysuria, urine output as noted Neurological: Denied acute neurological deficits or acute changes in strength or sensation Musculoskeletal: Defer to primary service VITALS : Visit Vitals BP (!) 158/91 (Patient Position: Lying) Pulse 62 Temp 36 C (96.8 F) (Temporal) Resp 16 Ht 1.778 m (70 ) Wt 98.9 kg (218 lb 0.6 oz) SpO2 92% BMI 31.28 kg/m Smoking Status Never BSA 2.17 m I&O: I/O last 3 completed shifts: In: 2500 (25.3 mL/kg) [I.V.:2500 (25.3 mL/kg)] Out: 2325 (23.5 mL/kg) [Urine:2000 (0.6 mL/kg/hr); Drains:225; Blood:100] Weight: 98.9 kg I/O this shift: In: - Out: 35 [Drains:35] PHYSICAL EXAM : General: Responds appropriately; no apparent distress Cardiovascular: Regular rate and rhythm; no murmur, rub, or gallop Respiratory: Clear to auscultation; normal respiratory effort Abdomen: Soft, non-distended; non-tender; bowel sounds normoactive Skin: No rashes Neurological: Alert and oriented x 3; appropriate mood and affect; follows commands/requests appropriately Musculoskeletal: Defer to primary service RESULTS : LABS Results from last 7 days Lab Units 02/25/23 0710 02/24/23 0903 SODIUM mmol/L 137 -- POTASSIUM mmol/L 3.4* -- CHLORIDE mmol/L 99 -- CO2 mmol/L 28 -- BUN mg/dL 14 -- CREATININE mg/dL 0.79 -- CALCIUM mg/dL 8.7* -- POCT GLUCOSE mg/dL -- 276* GLUCOSE mg/dL 151* -- Lab Results Component Value Date WBC 11.4 (H) 02/25/2023 RBC 4.29 (L) 02/25/2023 HGB 14.4 02/25/2023 HCT 40.5 02/25/2023 MCV 94.4 02/25/2023 MCHC 35.6 (H) 02/25/2023 RDW 11.1 02/25/2023 PLT 154 02/25/2023 MPV 10.4 02/25/2023 DIFF Lab Results Component Value Date LYMPHOPCT 9.6 (L) 02/25/2023 NEUTROABS 9.02 (H) 02/25/2023 LYMPHSABS 1.09 02/25/2023 MONOABS 1.17 (H) 02/25/2023 EOSABS 0.00 02/25/2023 BASOSABS 0.02 02/25/2023 IMMGRANABS 0.05 02/25/2023 RETIC No results found for: RETIC, RETICCTPCT Problem: Sensory: Goal: Pain level will improve or be tolerable Outcome: Progressing Problem: Mobility Goal: Patient will ambulate Outcome: Progressing Problem: Falls: Goal: Patient will not fall or injure themselves during hospitalization. Outcome: Progressing Goals: Identify possible barriers to meeting goals/advancing plan of care: drain output Stability of the patient: Moderately Stable - Low risk of patient condition declining or worsening End of Shift Summary: progressing towards goals for discharge. 02/24/23 1604 Discharge Planning Living Arrangements Spouse/significant other Support Systems Spouse/significant other Assistance Needed Pt's spouse will provide support and assistance. Type of Residence Private residence (Pt lives in a two story home. He will reside on the main level. he has 1 step to enter.) Home Services No Patient expects to be discharged to: Home Does the patient need discharge transport arranged? No (Pts family will provide transportation) Initial Transition Plan Initial Transition Plan Home Back up Transition Plan Back up Transition plan Home NN met with patient and his at bedside to discuss discharge planning. Address and phone number confirmed. Pt reports discharge plan is home with family for support and assistance. Patient denies barriers to discharge home. Pt denies any additional DME needs for home use. Patient's family will be providing transportation home. Discussed discharge prescriptions-pt will call to confirm a shredder picker time prior to discharge. Pharmacy confirmed. Discharge instructions discussed and voiced understanding, denies questions. [facility] Physical Therapy Evaluation PT Discharge Recommendations: Home independent Distance Ambulated (ft): 60 Device: Rolling walker Orthopedic Precautions: Back Precautions Prosthesis/Orthosis Used: (LSO OOB > 15 minutes) Strength RLE R Ankle Dorsiflexion: 5/5 R Ankle Plantar Flexion: 5/5 Strength LLE L Ankle Dorsiflexion: 5/5 L Ankle Plantar Flexion: 5/5 AM-PAC: * Chan Molina MD - Primary Procedure(s): L4-S1 Posterior lumbar laminectomy and fusion with instrumentation Day of Surgery Fall prevention education provided including use of call light in hospital, use of appropriate assistive device, safe mobility techniques, and safety measures at home. Continue PT as per POC. In to see pt with RN permission, pt agreeable to PT services. Pt's and son present for session. PT educated pt in regards to B LE venous return exercises, back precautions with handout, and LSO wear/care schedule. Pt gave verbal understanding. 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 See below for complete mobility performance details with pt limited by becoming diaphoretic and light headed while ambulating. RN notified. Pt left supine in bed with B DVT pumps on, cooling pad in place, call light/phone within reach and all needs met. Patient Active Problem List Diagnosis Fusion of lumbar spine Past Medical History: Diagnosis Date Hyperlipidemia Hypertension Past Surgical History: Procedure Laterality Date CHOLECYSTECTOMY Objective 02/24/23 1535 General Family/Caregiver Present Yes PT Time Calculation PT Start Time 1535 PT Stop Time 1602 PT Time Calculation (min) 27 min Precautions Medical Precautions Fall Risk Safety Interventions Call louis within reach;Gait belt Orthopedic Precautions Back Precautions Orthoses Applied Don in Sitting Prosthesis/Orthosis Used (LSO OOB > 15 minutes) Pain Assessment Pain Assessment 0-10 Pain Score 2 Pain Type Surgical pain Pain Location Back Pain Orientation Lower Pain Descriptors Aching Pain Interventions Repositioned;Ambulation/increased activity Cognition Arousal/Alertness Appropriate responses to stimuli Orientation Level Oriented X4 Following Commands Follows all commands and directions without difficulty Home Living Type of Home House Lives With Spouse Home Adaptive Equipment Walker - rolling Home Layout One level Home Access Stairs to enter without rails Entrance Stairs-Rails None Entrance Stairs-Number of Steps one 12 inch platform SAJAN Bathroom Toilet Handicapped height Prior Function Level of [place] Independent with mobility and functional transfers Prior Function Comments Pt was still working prior to his R leg going numb and has his own Aula 7 Sensation Light Touch Partial deficits in the RLE (present prior to surgery along L4-S1 dermatomes) Bed Mobility Sitting to Lying Assistance Minimum assistance Sitting to Lying Deficit Verbal cueing;Assist lifting left leg onto bed;Assist lifting right leg onto bed Lying to Sitting Assistance Minimum assistance Lying to Sitting Deficit Verbal cueing Transfers Sit to Stand Assistance Contact guard Sit to Stand Deficit Verbal cueing Ambulation Walking Assistance Contact guard Walking Deficit Verbal cueing Device Rolling walker Distance Ambulated (ft) 60 Comments Pt demonstrating shuffling gait pattern. Pt cued for upright posture, increased stride length, and safety/proximity to FWW. Pt reported feeling light-headed and sweaty after ambulating approx 30' but was able to ambulate back to bed without issue. Stairs 1 step (curb): Assistance Not attempted, medical/safety concerns Strength RLE R Ankle Dorsiflexion 5/5 R Ankle Plantar Flexion 5/5 Strength LLE L Ankle Dorsiflexion 5/5 L Ankle Plantar Flexion 5/5 PT Assessment PT Assessment/ Barriers to discharge Impaired gait;Decreased mobility;Impaired balance;Orthopedic restrictions Prognosis Excellent Evaluation/Treatment Tolerance (Pt limited by becoming diaphoretic) Medical Staff Made Aware Yes Comments WHITNEY Petersen notified of pt performance and pt becoming diaphoretic/light-headed while ambulating Plan Treatment/Interventions Functional transfer training;Patient/family training;Equipment eval/education;Bed mobility;Gait training;Compensatory technique education;Continued evaluation PT Plan Skilled PT PT Frequency 7 days per week PT Duration of Sessions PRN PT Treatments per day 1-2 times per day PT Discharge Recommendations Home independent PT - Evaluation Status Complete PT Evaluation Time Entry PT Evaluation (Moderate) Time Entry 15 Treatment performed during evaluation: Gait Training Gait Training Time Entry: 12 Gait Training Activity 1: Gait training with FWW Goals and Education Encounter Problems Encounter Problems (Active) Template: Physical Therapy Problem: PT Short Term Goals Dates: Start: 02/24/23 Goal: Pt will perform bed mobility via log roll with CGA Dates: Start: 02/24/23 Expected End: 02/25/23 Outcomes Date/Time User Outcome 02/24/23 1630 Swati Henderson, PT Progressing Goal: Pt will perform transfers with SBA/FWW Dates: Start: 02/24/23 Expected End: 02/25/23 Outcomes Date/Time User Outcome 02/24/23 1630 Swati Henderson, PT Progressing Goal: Pt will ambulate x150 ft with SBA/FWW Dates: Start: 02/24/23 Expected End: 02/25/23 Outcomes Date/Time User Outcome 02/24/23 1630 Swati Henderson, PT Progressing Goal: Pt will ascend/descend platform step with CGA/FWW Dates: Start: 02/24/23 Expected End: 02/25/23 Outcomes Date/Time User Outcome 02/24/23 1630 Swati Henderson, PT Progressing Goal: Pt will indicate understanding of back precautions and LSO wear/care schedule Dates: Start: 02/24/23 Expected End: 02/25/23 Outcomes Date/Time User Outcome 02/24/23 1630 Swati Henderson, PT Progressing Encounter Problems (Resolved) There are no resolved problems. Education Documentation Precautions, taught by Swati Henderson PT at 02/24/2023 4:31 PM. Learner: Family, Patient Readiness: Acceptance Method: Explanation, Demonstration, Handout Response: Verbalizes Understanding Body Mechanics, taught by Swati Henderson PT at 02/24/2023 4:31 PM. Learner: Family, Patient Readiness: Acceptance Method: Explanation, Demonstration, Handout Response: Verbalizes Understanding Mobility Training, taught by Swati Henderson PT at 02/24/2023 4:31 PM. Learner: Family, Patient Readiness: Acceptance Method: Explanation, Demonstration, Handout Response: Verbalizes Understanding Explain call button use, taught by Swati Henderson PT at 02/24/2023 4:30 PM. Learner: Patient Readiness: Acceptance Method: Explanation Response: Verbalizes Understanding Teach fall prevention measures, taught by Swati Henderson PT at 02/24/2023 4:30 PM. Learner: Patient Readiness: Acceptance Method: Explanation Response: Verbalizes Understanding Education Comments No comments found. [facility] - PROGRESS NOTE Patient Name : Talita Appiah Patient : 1955 Patient Admit Date : 02/24/2023 Admission Diagnosis : Postoperative Medical Comanagement Provider Name : Ponce Garcia MD Date Of Service : 02/24/23 IMPRESSION AND PLAN : This 67 y.o. male, status post Procedure(s) (LRB): L4-S1 Posterior lumbar laminectomy and fusion with instrumentation (N/A), is currently recovering DOS. I have seen the patient personally today and reviewed any available lab results on this patient. Admission medication reconciliation has been completed and in addition multimodal pain medications as well as as needed medications have been ordered. A medical consult has been ordered by the surgeon for perioperative management of the patient's chronic medical conditions including the following . . . HTN (I10) Chronic condition & present on admission - controlled on home prescription medications, which have been reordered. Home regime includes lisinopril/hydrochlorothiazide I have ordered as needed clonidine. Hyperlipidemia- (Z85.5) chronic condition and present upon admission. Dietary controlled historically. Does support use of fish oil which will be held to reduce bleeding risk complications for now. Obesity ( E 66.9 ) BMI - Body mass index is 31.28 kg/m . It has been recommended they follow up with their PCP regarding weight loss intervention. Obesity increases the risks for postoperative hypoxia and hypoventilation. This patient will require close monitoring of respiratory status with frequent vitals and continuous pulse oximetry, especially if any sedatives or narcotic medications are given. Obstructive sleep apnea risk factors-VICKY screening questionnaire suggest this patient has elevated risk for obstructive sleep apnea. Accordingly this patient should be considered at elevated risk for perioperative complications related to sleep apnea. Would recommend monitoring with continuous pulse oximetry, cautious use of opiate-based pain medications and utilization of CPAP/BiPAP as needed DVT prophylaxis is recommended as per current ACCP guidelines. Pharmacologic DVT prophylaxis will be left to the discretion of the primary surgical service.. Have encourage venous return exercises. Subjective Patient seen and examined, Chart reviewed in PACU. I have reviewed H&P, preop labs & EKG Patient unable to provide much details. Anesthesia Sheet Reviewed - General IVF -2300 mL noted U/O- [address] 200 mL noted EBL - 100 mL reported Dexamethasone 10 mg noted given Monitor in PACU reviewed shows sinus rhythm Discussed with STRETCHER DRIER OPERATOR Subjective: Rates pain currently -moderate currently rating 4 No nausea, vomiting No Chest pain, sob REVIEW OF SYSTEMS Cardiovascular: Denies chest pain Respiratory: Denies shortness of breath or cough Gastrointestinal: Denies abdominal pain or nausea/vomiting Genitourinary: Denies urinary retention or incomplete voiding VITALS : Visit Vitals BP (!) 152/81 Pulse 79 Temp 36.6 C (97.9 F) (Temporal) Resp (!) 9 Ht 1.778 m (70 ) Wt 98.9 kg (218 lb 0.6 oz) SpO2 96% BMI 31.28 kg/m Smoking Status Never BSA 2.17 m I&O: No intake/output data recorded. I/O this shift: In: 2300 [I.V.:2300] Out: 300 [Urine:200; Blood:100] PHYSICAL EXAM : General - No Apparent Distress, somnolent but arouses easily Skin - No Rash, Normal Turgor Eyes - Pupils Equal, Conjunctiva Clear ENT - External Ears Normal, Hearing Normal Neck - Trachea Midline, No TMG Cardiovascular - Regular Rate and Rhythm, No Murmurs, Gallops, or Rubs, No Peripheral Edema Respiratory - CTA, Normal Resp. Effort GI - Soft Nontender, Hypoactive early bowel Sounds Musculoskeletal - Good DF/PF bilaterally, No Calf Tenderness Neuro/Psych - Somnolent but arouses easily, & follows simple commands, Appropriate Mood and Affect RESULTS : LABS Results from last 7 days Lab Units 02/24/23 0903 POCT GLUCOSE mg/dL 276* Recent labs reviewed below Lab Results Component Value Date HGB 15.9 02/03/2023 Creatinine Date Value Ref Range Status 02/03/2023 0.77 0.60 - 1.30 mg/dL Final Admission on 02/24/2023 Component Date Value ABO Group 02/24/2023 O Rh Type 02/24/2023 Positive Antibody Screen 02/24/2023 Negative SARS-COV-2 Screen 02/24/2023 Not Detected Glucose POCT 02/24/2023 276 (H) IMAGING XR Fluoro Up To 1 Hour (Statistics)(No Report) This order has been auto-finalized and does not contain a result. XR Fluoro Up To 1 Hour (Statistics)(No Report) Result Date: 02/24/2023 Narrative: This order has been auto-finalized and does not contain a result. documented in this encounter [facility] 02-25-2023 Hospital course Narrative Discharge Final Diagnosis: Spinal stenosis Hospital Course (include Reason for Hospitalization): Patient had surgery and was transferred to the floor. Pain was controlled with narcotics. PT was used for ambulation. Procedures Performed: Procedure(s): L4-S1 Posterior lumbar laminectomy and fusion with instrumentation Test Results Pending At Discharge: Issues Requiring Follow-Up Care: Wound check Outpatient Follow-Up Care: No future appointments. Discharge Medication List: Your medication list START taking these medications Instructions Last Dose Given Next Dose Due oxyCODONE 5 mg immediate release tablet Commonly known as: ROXICODONE Take 1 tablet (5 mg total) by mouth every 4 (four) hours if needed for moderate pain for up to 7 days. Max Daily Amount: 30 mg CONTINUE taking these medications Instructions Last Dose Given Next Dose Due lisinopril-hydroCHLOROthiazide 20-25 mg per tablet Commonly known as: PRINZIDE,ZESTORETIC Take 1 tablet by mouth 1 (one) time each day. STOP taking these medications ASPIRIN ORAL NON FORMULARY Where to Get Your Medications These medications were sent to [facility]/pharmacy #[id number] - [place] - [address] [facility] [place], [place] [address] oxyCODONE 5 mg immediate release tablet Patient Condition and Disposition at Time of Discharge: Doing well and met goals for discharge. Discharge Instructions: Discharge Procedure Orders Incision/Wound - Do Not Soak Order Comments: Do not soak the incision/wound in water or go swimming Follow-up: Order Comments: 2-3 weeks May shower after dressing is removed Do Not Tub Bathe Order Comments: No tub baths until cleared by your doctor -Follow Dr. Molina's printed post op care instructions. -Avoid Nicotine and Anti Inflammatories to promote healing. -LSO brace on when out of bed greater than 15 minutes. -Plasma Flow SCD'S on Bilateral legs for 20 hours per day x 2 weeks for DVT prevention. -Post op prescriptions have been E-prescribed to your pharmacy. Please call to confirm a shredder picker time prior to discharge. -Per Dr. Molina patient may resume the routine 81 mg Aspirin on 02-26-23 Pre-Surgery Instructions: Medication Instructions ASPIRIN ORAL Other (see Additional Instructions)LAST DOSE 02/16 lisinopril-hydroCHLOROthiazide (PRINZIDE,ZESTORETIC) 20-25 mg per tablet Other (see Additional Instructions)LAST DOSE 02/23 NON FORMULARY Other (see Additional Instructions)LAST DOSE 02/16 MEDS PER [facility] Additional Instructions: Instructions to prepare for surgery: Increase water intake day PRIOR to surgery. Eat light meals or follow surgeon specific food instructions day PRIOR to surgery. At Midnight, nothing is allowed in your mouth. NO food, water, gum, candy, coffee, mints, tobacco, NOTHING AFTER MIDNIGHT. When you wake up, brush your teeth and use mouthwash. Don't swallow. Take small sip of water with meds that are to be taken DOS. Shower night prior and morning of surgery with antibiotic cleanser OR Dial antibacterial soap (as designated by surgeon). No lotions, creams, powders on your skin. You may wear deodorant (unless surgery is on your shoulder or breast(s)). No shaving surgical site (within 48 hours of surgery). Remove all jewelry, piercings and leave that at home. Leave valuable at home. Wear loose fitting clothes. Bring photo ID, medical insurance card, and copay as needed when you check in for surgery. In addition, bring any of the following: CPAP, living will/ medical POA, glasses, case, hearing aid container, shoulder sling, back brace, walker, cervical collar. Bring your COVID vaccine card, if applicable. Leave walker &/or cane (unless needed prior to surgery) and overnight bag in the car until after your procedure when you are assigned a room. Only 1 designated adult is allowed to go back into Pre-Op area with you. Surgical times are subject to change up until 5:30pm the evening prior to your surgery. Check in at [facility] supervisor desk [address] [place] [address]. If Outpatient, these additional instructions apply: An adult must stay with you the whole time you are here and drive you home. An adult must stay with you at home for 24 hours due to Anesthesia. If you have VICKY, you are required to stay 3 hours after your surgery before we can discharge you. documented in this encounter [facility] 02-24-2023 Procedure note OPERATIVE REPORT PATIENT NAME: Talita Appiah DATE OF : 1955 [facility]#: [id number] SURGEON: Chan Molina MD DATE OF SERVICE: 02/24/2023 LIVESTOCK CARETAKER: JASON Brito DATE OF SURGERY: 02/24/2023 PREOPERATIVE DIAGNOSIS: Lumbar stenosis with neurogenic claudication L4-L5, L5-S1, (M48.062) Lumbar spondylolisthesis with instability L5-S1, (M43.16) POSTOPERATIVE DIAGNOSIS: Lumbar stenosis with neurogenic claudication L4-L5, L5-S1, (M48.062) Lumbar spondylolisthesis with instability L5-S1, (M43.16) FINDINGS: stenosis in the central canal, neuro foramen, L4-L5, L5-S1, PROCEDURE(S): Right and Left Posterolateral fusion L4-L5, L5-S1, (CPT-29585 + CPT-92792) Laminectomy with partial facetectomy and foraminotomy L4-L5, L5-S1, (CPT-24940 + CPT-07615) Posterior spinal instrumentation L4-L5, L5-S1, (CPT-49212) Insertion of morcelized local bone graft for spinal fusion (CPT-46920) ANETHESIA: General Endotracheal Tube CLINICAL INDICATIONS: Back and leg pain refractory to conservative measures and consistent with imaging studies as well as history and physical. The patient was informed of the risks, benefits, expected and potential outcomes to their satisfaction and consented to the above. DESCRIPTION OF PROCEDURE: The patient verified the operative site and was marked. They were taken to the operating theater and a general anesthetic was administered. The patient was placed prone on the Viktor frame. The eyes were free from compression and the head, neck and shoulder girdles were held in a neutral position. The bed was placed in slight reverse Trendelenburg position. The operative site was prepped and draped in sterile fashion. Preoperative antibiotics and sequential compression boots were employed. A midline longitudinal incision was made. Electrocautery was used for hemostasis. Dissection was carried out through the lumbodorsal fascia and the multifidus was swept laterally. The microscope was prepped and draped sterilely, then introduced into the operative field. We were careful to identify the pars interarticularis and breadth of the facet joint. The lamina was removed in its entirety as was the ligamentum flavum with a combination of a high speed reginaldo and Kerrison rongeurs. Bilateral facetectomy and foraminotomy was completed. At the end of the procedure, the common thecal sac and exiting as well as traversing nerve roots appeared free from compression. Instrumentation was performed next. A high speed reginaldo was utilized to make a remotely piloted vehicle controller hole at the junction of the pars, transverse process and superior facet. A gear shift probe was then inserted through the pedicle into the vertebral body. This was then palpated for a bottom and 4 sides. The pedicle was then tapped and re-palpated for any bony breaches. As there were no breaches, the pedicle screw was inserted bilaterally at L4, L5, S1. The fusion was performed next. Local bone graft that was harvested from the laminectomy was cleaned of any soft tissue and morcelized. The bone graft was then placed into the posterolateral gutters in direct contact with the bony elements after decortication to punctate, bleeding bone. This completed the fusion. AP and lateral fluoroscopy was used to confirm an appropriate position of the hardware. The appropriate size melchor was then chosen and affixed to the pedicle screws. Torque sensitive, set screws were tightened bilaterally at each level. Prior to closure, the needle and instrument counts were correct. The operative field was thoroughly irrigated and meticulous hemostasis was noted. Closure was done with #1 Vicryl suture that was water tight in the fascia. O and 2-O Vicryl was used in the subcutaneous tissues. The skin was re-approximated with 4-0 Monocryl. A sterile dressing was applied, and the patient was taken to the recovery room in stable condition. JASON Brito was present throughout the entire case. His assistance was essential for safe, effective execution of the surgery. This included retraction of vital tissues, maintenance of hemostasis and performing a portion of the closure. Complications: None EBL: 200ML [facility] 02-24-2023 Procedure note OPERATIVE REPORT PATIENT NAME: Talita Appiah DATE OF : 1955 [facility]#: [id number] SURGEON: Chan Molina MD DATE OF SERVICE: 02/24/2023 LIVESTOCK CARETAKER: JASON Brito DATE OF SURGERY: 02/24/2023 PREOPERATIVE DIAGNOSIS: Lumbar stenosis with neurogenic claudication L4-L5, L5-S1, (M48.062) Lumbar spondylolisthesis with instability L5-S1, (M43.16) POSTOPERATIVE DIAGNOSIS: Lumbar stenosis with neurogenic claudication L4-L5, L5-S1, (M48.062) Lumbar spondylolisthesis with instability L5-S1, (M43.16) FINDINGS: stenosis in the central canal, neuro foramen, L4-L5, L5-S1, PROCEDURE(S): Right and Left Posterolateral fusion L4-L5, L5-S1, (CPT-22906 + CPT-18495) Laminectomy with partial facetectomy and foraminotomy L4-L5, L5-S1, (CPT-54019 + CPT-59149) Posterior spinal instrumentation L4-L5, L5-S1, (CPT-36120) Insertion of morcelized local bone graft for spinal fusion (CPT-25574) ANETHESIA: General Endotracheal Tube CLINICAL INDICATIONS: Back and leg pain refractory to conservative measures and consistent with imaging studies as well as history and physical. The patient was informed of the risks, benefits, expected and potential outcomes to their satisfaction and consented to the above. DESCRIPTION OF PROCEDURE: The patient verified the operative site and was marked. They were taken to the operating theater and a general anesthetic was administered. The patient was placed prone on the Viktor frame. The eyes were free from compression and the head, neck and shoulder girdles were held in a neutral position. The bed was placed in slight reverse Trendelenburg position. The operative site was prepped and draped in sterile fashion. Preoperative antibiotics and sequential compression boots were employed. A midline longitudinal incision was made. Electrocautery was used for hemostasis. Dissection was carried out through the lumbodorsal fascia and the multifidus was swept laterally. The microscope was prepped and draped sterilely, then introduced into the operative field. We were careful to identify the pars interarticularis and breadth of the facet joint. The lamina was removed in its entirety as was the ligamentum flavum with a combination of a high speed reginaldo and Kerrison rongeurs. Bilateral facetectomy and foraminotomy was completed. At the end of the procedure, the common thecal sac and exiting as well as traversing nerve roots appeared free from compression. Instrumentation was performed next. A high speed reginaldo was utilized to make a remotely piloted vehicle controller hole at the junction of the pars, transverse process and superior facet. A gear shift probe was then inserted through the pedicle into the vertebral body. This was then palpated for a bottom and 4 sides. The pedicle was then tapped and re-palpated for any bony breaches. As there were no breaches, the pedicle screw was inserted bilaterally at L4, L5, S1. The fusion was performed next. Local bone graft that was harvested from the laminectomy was cleaned of any soft tissue and morcelized. The bone graft was then placed into the posterolateral gutters in direct contact with the bony elements after decortication to punctate, bleeding bone. This completed the fusion. AP and lateral fluoroscopy was used to confirm an appropriate position of the hardware. The appropriate size melchor was then chosen and affixed to the pedicle screws. Torque sensitive, set screws were tightened bilaterally at each level. Prior to closure, the needle and instrument counts were correct. The operative field was thoroughly irrigated and meticulous hemostasis was noted. Closure was done with #1 Vicryl suture that was water tight in the fascia. O and 2-O Vicryl was used in the subcutaneous tissues. The skin was re-approximated with 4-0 Monocryl. A sterile dressing was applied, and the patient was taken to the recovery room in stable condition. JASON Brito was present throughout the entire case. His assistance was essential for safe, effective execution of the surgery. This included retraction of vital tissues, maintenance of hemostasis and performing a portion of the closure. Complications: None EBL: 200ML Dr. Lopez aware of blood sugar of 276. No new orders received. documented in this encounter [facility] 02-24-2023 History and physi debra note History and Physical Update ( H&P completed within the previous thirty days ) I personally reviewed the History and Physical, interviewed and examined the patient prior to surgery. No changes have occurred in the patient's condition since the History and Physical was completed. [facility] 02-24-2023 History and physi debra note History and Physical Update ( H&P completed within the previous thirty days ) I personally reviewed the History and Physical, interviewed and examined the patient prior to surgery. No changes have occurred in the patient's condition since the History and Physical was completed. documented in this encounter [facility] 02-24-[address] Lopez aware of blood sugar of 276. No new orders received. [facility] encounter [facility] Diagnosis Fusion of lumbar spine- Primary [facility]* Attachments The following attachments cannot be sent through Care Everywhere. * Fall Prevention (Honduran) * Incentive Spirometer: General Info (Honduran) * DVT (Deep Vein Thrombosis): Prevention: General Info (Honduran) * Pain Medication Precautions (Honduran) * Constipation (Honduran) [facility] Narrative* Auth/Cert Specialty Diagnoses / Procedures Referred By Contac t Referred To Contact Diagnoses Spinal stenosis, lumbar region with neurogenic claudication M48.062 Procedures TX REYNOLDS FACETECTOMY & FORAMINOTOMY SINGLE VERTEBRAL SEGMENT LUMBAR TX REYNOLDS FACETECTOMY & FORAMINOTOMY SGL VERT SEGM EA ADDL VERT C/TH LUMB TX ARTHRODESIS POST/POSTEROLATERAL TECH SGL INTERSPACE LUMBAR TX ARTHRODESIS POST/POSTEROLATERAL TECH SGL INTERSPACE EACH ADDL INTERSPACE TX INSTRUMENTATION POSTERIOR SEGMENTAL 3 TO 6 VERTEBRAL SEGMENTS L4-S1 Posterior lumbar laminectomy and fusion with instrumentation Chan Molina MD [address] [place] [address] [facility] [address] [place] [address] Referral ID Status Reason Start Date Expiration Date Visits Re quested Visits Authorized [id number] 1 1 [facility] Summary Purpose Family History No Family History Records Found Advance Directives No Advanced Directives Records Found Additional Source Comments Care Teams (unrecognized sec tion and content) Plant Physiology Teacher Relationship Specialty Start Date End Date Bree Moody MD [address] [place] [address] PCP - General Family Medicine 02/06/23 Ordered Prescriptions (unrec ognized section and content) Scheduled Active and Recently Administ ered Medications (unrecognized section and content) Continuous Medication Order 02/23/2023 02/24/2023 02/25/2023 lactated Ringer's infusion 100 mL/hr, intravenous, Continuous, Starting on Mon02/24/23 at 1530 1531 (Continued from OR - Provider: Trinity Flores RN)2004 (New Bag - Provider: Rani Bartlett RN) 0410 (New Bag - Provider: Rani Bartlett RN) PRN Medication Order 02/23/2023 02/24/2023 02/25/2023 acetaminophen (TYLENOL) tablet 650 mg 650 mg, oral, Every 6 hours PRN, mild pain, headaches, fever, Starting on Mon02/24/23 at 1506 aluminum-magnesium hydroxide-simethicone (MAALOX) 200-200-20 mg/5 mL suspension 30 mL 30 mL, oral, 4 times daily PRN, indigestion, heartburn, Starting on Mon02/24/23 at 1506 bethanechol (URECHOLINE) tablet 25 mg 25 mg, oral, 3 times daily PRN, As needed for urinary retention or PVR greater than 400 cc, Starting on Mon02/24/23 at 1506 bisacodyL (DULCOLAX) suppository 10 mg 10 mg, rectal, Daily PRN, constipation, If magnesium hydroxide ineffective, Starting on Mon02/24/23 at 1506 cloNIDine (CATAPRES) tablet 0.1 mg 0.1 mg, oral, Every 6 hours PRN, high blood pressure, For SBP >150 or DBP >100, Starting on Mon02/25/23 at 0958 cyclobenzaprine (FLEXERIL) tablet 10 mg 10 mg, oral, 3 times daily PRN, muscle spasms, Starting on Mon02/24/23 at 1506 2004 (Given - Provider: Rani Bartlett RN - Comment: for spasms) diphenhydrAMINE (BENADRYL) capsule 25 mg 25 mg, oral, Every 6 hours PRN, itching, Starting on Mon02/24/23 at 1506 gelatin sponge, absorb-porcine (GELFOAM) topical sponge (CANCELED) As needed, Starting on Mon02/24/23 at 1251, Intraprocedure 1251 (Given - Provider: Chan Molina MD) HYDROmorphone (DILAUDID) injection 0.5 mg 0.5 mg, intravenous, Every 2 hours PRN, severe pain, For severe breakthrough pain not relieved with oral pain medication, Starting on Mon02/24/23 at 1506 magnesium hydroxide (MILK OF MAGNESIA) 400 mg/5 mL suspension 30 mL 30 mL, oral, 2 times daily PRN, constipation, Starting on Mon02/24/23 at 1506, Follow dose with 8 oz of water. naloxone (NARCAN) injection 0.4 mg 0.4 mg, intravenous, Once as needed, opioid reversal, respiratory depression, Starting on Mon02/24/23 at 1506, For 1 dose ondansetron (PF) (ZOFRAN) injection 4 mg 4 mg, intravenous, Every 6 hours PRN, nausea, vomiting, Starting on Mon02/24/23 at 1506 oxyCODONE (ROXICODONE) immediate release tablet 10 mg(Linked Group 1) 10 mg, oral, Every 4 hours PRN, severe pain, Starting on Mon02/24/23 at 1506 2004 (Given - Provider: Rani Bartlett RN) 0006 (Given - Provider: Rani Bartlett RN)0410 (Given - Provider: Rani Bartlett RN) oxyCODONE (ROXICODONE) immediate release tablet 5 mg(Linked Group 1) 5 mg, oral, Every 4 hours PRN, moderate pain, Starting on Mon02/24/23 at 1506 2004 (See Alternative - Provider: Rani Bartlett RN) 0006 (See Alternative - Provider: Rani Bartlett RN)0410 (See Alternative - Provider: Rani Bartlett RN) oxyCODONE-acetaminophen (PERCOCET) 5-325 mg per tablet 1 tablet (CANCELED) 1 tablet, oral, Every 4 hours PRN, moderate pain, Starting on Mon02/24/23 at 1336, For 2 doses, Recovery (only) 1424 (Given - Provider: Nora Neol RN) Oxygen Therapy, Adult inhalation, at 2 mL/hr, As needed, Titrate 1-4 lpm to maintain O2 sats above 90%. If Flow is increased above 4 Lpm, Please contact [facility]., Starting on Mon02/24/23 at 1506, Titrate 1-4 lpm to maintain O2 sats above 90%. If Flow is increased above 4 Lpm, Please contact [facility]., Device: Nasal Cannula, Rate in liters per minute: 2 lpm, Keep O2 Sat Above: 90% promethazine (PHENERGAN) suppository 25 mg 25 mg, rectal, Every 6 hours PRN, nausea, vomiting, Starting on Mon02/24/23 at 1506, For use if unable to tolerate p.o. Phenergan and IV Zofran ineffective promethazine (PHENERGAN) tablet 25 mg 25 mg, oral, Every 6 hours PRN, nausea, vomiting, Starting on Mon02/24/23 at 1506, For use if IV Zofran ineffective or no IV access ropivacaine (NAROPIN) 0.5 % injection (CANCELED) As needed, Starting on Mon02/24/23 at 1251, Intraprocedure 1251 (Given - Provider: Chan Molina MD) sodium chloride 0.9 % irrigation solution (CANCELED) As needed, Starting on Mon02/24/23 at 1251, Intraprocedure 1251 (Given - Provider: Chan Molina MD) thrombin (bovine) (THROMBIN-JMI) topical spray syringe (CANCELED) As needed, Starting on Mon02/24/23 at 1251, Intraprocedure 1251 (Given - Provider: Chan Molina MD) traZODone (DESYREL) tablet 50 mg 50 mg, oral, Nightly PRN, sleep, Starting on Mon02/24/23 at 1506 vancomycin (VANCOCIN) vial for injection (CANCELED) As needed, Starting on Mon02/24/23 at 1251, Intraprocedure 1251 (Given - Provider: Chan Molina MD) Linked Groups Order Group 1: oxyCODONE (ROXICODONE) immediate release tablet 5 mgJump to med 5 mg, oral, Every 4 hours PRN, moderate pain, Starting on Mon02/24/23 at 1506 Or oxyCODONE (ROXICODONE) immediate release tablet 10 mgJump to med 10 mg, oral, Every 4 hours PRN, severe pain, Starting on Mon02/24/23 at 1506 (unrecognized sect ion and content) No Status Records Found INFORMATION SOURCE (unrecogn ized section and content) FOR RECORDS PERTAINING TO PATIENTS WHO ARE OR HAVE BEEN ENROLLED IN A CHEMICAL DEPENDENCY/SUBSTANCEABUSE PROGRAM, SOME INFORMATION MAY BE OMITTED. This clinical summary was aggregated from multiple sources. Caution should be exercised in using it in the provision of clinical care. This summary normalizes information from multiple sources, and as a consequence, information in this document may materially change the coding, format and clinical context of patient data. In addition, data may be omitted in some cases. CLINICAL DECISIONS SHOULD BE BASED ON THE PRIMARY CLINICAL RECORDS. [facility] [employer] [facility]. provides no warranty or guarantee of the accuracy or completeness of information in this document.
[2023-12-15 12:35] VITALS: BP 155/81; PULSE 86; RESP 16; TEMP 36.8; O2SAT 96; BMI 31.6
[2023-12-15] MEDS: Lactated Ringers 1,000 ML 15 ML IV (12:39)
--- NOTE | 2023-12-15 13:30 | US_ITS ---
PROCEDURE: Ultrasound Guided prostate biopsy. CLINICAL HISTORY: Male, 68 years old. PROSTATE ENLARGEMENT CONSENT: Time-Out Called: Yes Consent form signed: YES PT-PTT Levels Checked: Yes TECHNIQUE: Under direct sonographic guidance, the urologist performed core biopsies of the prostate. US/Prostate Biopsy IMPRESSION: Ultrasound-guided prostate biopsy. Electronically Signed: Mauricio Ruiz MD at 9:24 EST ,
--- NOTE | 2023-12-15 13:30 | DCINST_ITS ---
Discharge Instructions Procedure Urology Diet Discharge Diet: No restrictions Activity Discharge Activity: Return to Normal Activity and May Not Drive (while taking narcotic pain medications.) Dressing / Incision Call your doctor if you observe: Fever of 101 or Higher Follow Up Care Please Follow Up With: Hussain Gilliland MD When: Call [phone] for an appointment Test Results: Test results from this visit will be discussed in further detail at your follow- up appointment, if applicable. Discharge Plan Admission Attending Provider: Hussain Gilliland Primary Care Provider: Eron Moody Discharge Orders/Prescriptions Prescriptions: No Action Ultra CoQ10 75 mg capsule 75 mg PO DAILY Hold Instructions: HASNT TAKEN FOR 2 WKS lisinopril-hydrochlorothiazide 1 EACH tablet 1 tab PO DAILY Patient Comments: TAKE 1 TABLET BY MOUTH EVERY DAY Referrals / Follow Up: Eron Moody MD [Primary Care Provider] - Disposition Disposition (needs filled in before D/C Order can be placed): Home, Self Care
--- NOTE | 2023-12-15 13:30 | PCM.HP.STD ---
HPI - General General Date of Admission: 12/15/23 Chief Complaint: Elevated PSA HPI Narrative TALITA MANSFIELD, is a 68 M who presents for outpatient ultrasound-guided prostate biopsy, we attempted to do the biopsy in the office but the patient could not tolerate the probe. [facility] Medical History (Updated 12/07/23 @ 11:22 by Cyndie Lim) Alcohol use Cancer History of diverticulitis HTN (hypertension) Injury of back Non-smoker Prostate disease Rash Wears glasses Home Medications lisinopril 20 mg-hydrochlorothiazide 25 mg tablet 1 tab PO DAILY 09/18/19 [History Last Taken 12/15/23] coenzyme Q10 75 mg capsule (Ultra CoQ10) 75 mg PO DAILY 02/04/20 [History Last Taken Unknown] Allergy/AdvReac Type Severity Reaction Status Date / Time No Known Allergies Allergy Verified 12/15/23 12:34 Family History Brother Heart disease Surgical History History of bilateral cataract extraction History of spinal surgery s/p pilonidal cystectomy Status post laparoscopic cholecystectomy Social History (Updated 02/05/20 @ 12:[address] Horace Luu MD) Smoking Status: Never smoker alcohol intake: current Vital Signs Vital Signs Vital Signs: 12/15/23 12:35 12/15/23 12:35 Temperature 98.3 F Temperature Source Temporal Pulse Rate 86 Respiratory Rate 16 Respiratory Pattern Normal Blood Pressure 155/81 H Blood Pressure Mean 105 Blood Pressure Source Monitor Blood Pressure Position Semi-Fowlers Blood Pressure Location Right Arm Pulse Ox 96 Oxygen Delivery Method Room Air Weight Weight: 100.2 kg Body Mass Index (BMI) 31.6
--- NOTE | 2023-12-15 14:11 | PCM.OPRPT ---
Report of Operation Date of Procedure: 12/15/23 Pre-Operative Diagnosis: Elevated PSA Post-Operative Diagnosis: Same Surgery/Procedure Performed:: Prostate biopsy transrectal Description of Surgical Findings:: Patient was taken back to the operating room and underwent anesthesia, he was placed in dorsal lithotomy position with the legs in stirrups making sure to proper sleep pad all pressure points. The patient had undergone an enema in preparation for the biopsy and also was on antibiotics preloaded IV. I then introduced a ultrasound probe into the rectum with digital guidance and a bimanual exam of the prostate was performed. The prostate was about 40gm in size by exam. No hard nodules were noted on exam. Then using the ultrasound probe the prostate was imaged with three-dimensional ultrasound imaging and the prostate was apical distance was measured with was measured in its height was measured calculated volume was then performed the prostate measured about 41gm in size. We then performed a biopsy of the prostate starting at the right base biopsy was done medially and laterally we then moved to the right mid of the prostate biopsy was performed medially and laterally obtaining good tissue from the middle transition zone and also the peripheral zone. We went to the apex of the prostate and also obtained a biopsy medially and laterally from the transition zone in the apex of the prostate and peripheral zone. We then switched the probe and went to the left side of the prostate into the right base of the prostate with a biopsy medially and laterally in the peripheral zone in the transition zone, we went to the mid prostate on the left side and that a biopsy in the transition zone and peripheral zone medially and laterally and then finally we went to the apex and then a biopsy medially and laterally in the peripheral zone and transition zone. After the standard biopsy was performed and the ultrasound probe was removed. Surgeon: Hussain Gilliland Type of Anesthesia: MAC Drains: 0 Estimated Blood Loss (mL): 0 Admit VTE Documentation VTE Present on Admission: No VTE Mechan Device Prophylaxis: SCD's VTE Pharm Prophylaxis ordered?: No
--- NOTE | 2023-12-15 14:15 | PROSBIL_PTH ---
PATHOLOGY RESULTS PATIENT: TALITA MANSFIELD LOC: [facility] [place] U#:[id number] AGE/SX: 68/M ROOM: RE12/15/[address]: Dr. Hussain Gilliland MD : [id number] BED: DIS: 12/15/2023 SPEC #: [id number] RECD: 12/15/23 18:12 STATUS: LIZBET ROGERS #: [id number] KEYSHA: 12/15/23 14:[address]: Hussain Gilliland DEPT: SURGICAL PATHOLOGY RECD BY: Candace Espinal ENTERED: 12/18/23 09:32 SP TYPE: PROST BX SEN DR: Dr. Dale Moody MD Tissues: PROSTATE RIGHT PROSTATE RIGHT PROSTATE RIGHT PROSTATE LEFT PROSTATE LEFT PROSTATE LEFT Procedures: PROSTATE BX HEADER OPERATION: Prostate biopsy, ultrasound guidance PRE-OP DIAGNOSIS: Elevated PSA TISSUE SUBMITTED: A - Right posterior base, B - Right posterior middle, C - Right posterior apex, D - Left posterior base, E - Left posterior middle, F - Left posterior apex MICROSCOPIC DIAGNOSIS A. Right prostate, posterior base, core biopsy: Prostatic tissue, negative for malignancy. B. Right prostate, posterior middle, core biopsy: Prostatic tissue, negative for malignancy. Focal basal cell hyperplasia. C. Right prostate, posterior apex, core biopsy: Prostatic adenocarcinoma. Marycruz grade: 3+3=6 Number of cores involved: 1/2 Proportion of tissue involved: ~5-10% Perineural invasion: Not identified. Greatest tumor length: 0.2 cm See comment. D. Left prostate, posterior base, core biopsy: Prostatic tissue, negative for malignancy. E. Left prostate, posterior middle, core biopsy: Prostatic tissue, negative for malignancy. F. Left prostate, posterior apex, core biopsy: Prostatic adenocarcinoma. Quincy grade: 3+3=6 Number of cores involved: 1/2 Proportion of tissue involved: ~5-10% Perineural invasion: Not identified. Greatest tumor length: 0.2 cm See comment. SJ:migue 12/19/2023 COMMENT C & F. Immunohistochemistry ([id number]) supports the above diagnosis. Case has been reviewed in consultation with Dr. Johnson who concurs with the above diagnosis. IDC:AM MICROSCOPIC DESCRIPTION Slides are reviewed. GROSS DESCRIPTION A - Received is one container designated prostate, right posterior base. The specimen consists of two elongated fragments of light dumont-white soft tissue measuring 1.5 and 1.7 cm in length and 0.1 cm in diameter. The specimen is totally submitted in one cassette. B - Received is one container designated prostate, right posterior middle. The specimen consists of two elongated fragments of light dumont-white soft tissue each measuring 1.6 cm in length and 0.1 cm in diameter. The specimen is totally submitted in one cassette. C - Received is one container designated prostate, right posterior apex. The specimen consists of two elongated fragments of light dumont-white soft tissue each measuring 1.5 cm in length and 0.1 cm in diameter. The specimen is totally submitted in one cassette. D - Received is one container designated prostate, left posterior base. The specimen consists of two elongated fragments of light dumont-white soft tissue measuring 1.0 and 1.5 cm in length and 0.1 cm in diameter. The specimen is totally submitted in one cassette. E - Received is one container designated prostate, left posterior middle. The specimen consists of two elongated fragments of light dumont-white soft tissue measuring 1.2 and 1.4 cm in length and 0.1 cm in diameter. The specimen is totally submitted in one cassette. F - Received is one container designated prostate, left posterior apex. The specimen consists of two elongated fragments of light dumont-white soft tissue measuring 0.3 and 1.0 cm in length and 0.1 cm in diameter. The specimen is totally submitted in one cassette. / SJ:rg 12/18/2023 TC:0 CPT: G0146
[2023-12-15 14:16] VITALS: BP 102/53; BP 155/81; PULSE 88; RESP 16; TEMP 38; O2SAT 98
[2023-12-15 14:20] VITALS: BP 113/79; BP 155/81; PULSE 91; RESP 16; O2SAT 93
[2023-12-15 14:25] VITALS: BP 126/78; BP 155/81; PULSE 91; RESP 16; O2SAT 95
[2023-12-15 14:32] VITALS: BP 146/77; BP 155/81; PULSE 86; RESP 16; TEMP 37.9; O2SAT 95
[2023-12-15 14:55] VITALS: BP 155/81
== END 2023-12-15 15:04 | disposition home or self-care (01) ==
LOC: SDC 12:08 → AC 12:09
PROVIDERS: PCP Family Medicine; Referring Provider Urology; Visit Provider Urology
PROC: (CPT 55700; principal; 2023-12-15 14:05)
DX: C61 Malignant neoplasm of prostate (principal); I10 Essential (primary) hypertension; R97.20 Elevated prostate specific antigen [PSA]; Z90.49 Acquired absence of other specified parts of digestive tract; N42.9 Disorder of prostate, unspecified; Z87.19 Personal history of other diseases of the digestive system; Z86.16 Personal history of COVID-19; Z79.899 Other long term (current) drug therapy
CPT/HCPCS: 00902; 55700; 76942; 88305; 88341; 88342; J7120; G0416; J2405

== ENCOUNTER → 2024-04-26 | Outpatient (CLI) | payer MEDICARE, OTHER, SELFPAY ==
[2024-04-26 09:03] LABS: PSA,Total- Diagnostic 8.36 ng/mL (0.0-4.0)
== END | disposition home or self-care (01) ==
PROVIDERS: PCP Family Medicine; Referring Provider Urology; Visit Provider Urology
DX: C61 Malignant neoplasm of prostate (principal)
CPT/HCPCS: 84153

== ENCOUNTER → 2024-06-07 | Outpatient (CLI) | payer MEDICARE, OTHER, SELFPAY ==
[2024-06-07 12:36] LABS: Erythrocyte Sedimentation Rate 11 mm/hr (0-20)
[2024-06-07 12:40] LABS: Absolute Lymphocyte Count 1.24 X10^3/uL (0.83-4.51); Basophil# 0.04 X10^3/uL; Basophil% 0.7 % (0-1); Eosinophil# 0.03 X10^3/uL; Eosinophils% 0.5 % (0-5); Hemoglobin 13.7 g/dL (13.0-16.5); Lymphocyte # 1.24 X10^3/ul (0.83-4.51); Lymphocyte % 20.9 % (19-41); Mean Corp Hgb Conc 35.1 g/dL (32-36); Mean Corpuscular Hgb 33.5 pg (27.0-32.0); Mean Corpuscular Volume 95.4 fL (80-94); Mean Platelet Vol. 10.8 fl (6.2-12.0); Monocyte# 0.58 X10^3/uL; Monocyte% 9.8 % (0-10); NRBC Flagged by Analyzer 0 % (0-5); Neutrophil # 4.03 X10^3/uL (2.7-7.7); Neutrophil % 67.8 % (47-70); Platelet Count 105 K/mm3 (150-450); RBC Distribution Width CV 11.6 % (11.6-14.6); RBC Distribution Width SD 40.1 fl (35.1-43.9); Red Blood Count 4.09 M/mm3 (4.6-6.2); White Blood Count 5.9 K/mm3 (4.4-11.0)
[2024-06-07 12:59] LABS: Vitamin B12 > 2000 pg/mL (211-911); Vitamin D,25 Hydroxy 21.7 ng/mL
[2024-06-07 13:44] LABS: ALB/GLOB Ratio 1.1 RATIO (0.9-2.4); AST(SGOT) 107 U/L (15-37); Alanine Aminotransfer ALT/SGPT 93 U/L (16-61); Albumin, Serum 3.8 g/dL (3.2-5.0); Alkaline Phosphatase 128 U/L (45-117); Anion Gap 10 (5-15); BUN 20 mg/dL (7-18); BUN/Creat Ratio 23.2 RATIO (10-20); Calcium,Total 9.6 mg/dL (8.5-10.1); Chloride 104 mmol/L (98-107); Creatinine, Serum 0.86 mg/dL (0.70-1.30); EST Glomerular Filtration Rate 94 mL/min (>60); Est Glom Filt Rate - Afr Amer 113 mL/min (>60); Ferritin 1568 ng/mL (26-388); Globulin 3.5 g/dL (2.2-4.2); Glucose 129 mg/dL (74-106); Iron 119 ug/dL (65-175); Magnesium 1.7 mg/dL (1.6-2.6); Potassium 3.3 mmol/L (3.5-5.1); Protein, Total 7.3 g/dL (6.4-8.2); Sodium Level 139 mmol/L (136-145); Thyroid Stim Hormone (TSH) 1.26 uIU/mL (0.358-3.74)
[2024-06-10 15:08] LABS: ANTINUCLEAR ANTIBODIES DIRECT Negative (Negative)
[2024-06-10 16:09] LABS: PROEL- A/G Ratio 1.3 (0.7-1.7); PROEL- Albumin 3.8 g/dL (2.9-4.4); PROEL- Alpha-1 Globulin 0.3 g/dL (0.0-0.4); PROEL- Alpha-2 Globulin 0.7 g/dL (0.4-1.0); PROEL- Beta Globulin 1.2 g/dL (0.7-1.3); PROEL- Gamma Globulin 0.8 g/dL (0.4-1.8); PROEL- TOTAL PROTEIN 6.8 g/dL (6.0-8.5); PROEL-M-Spike Not Observed g/dL (Not Observed)
[2024-06-11 11:25] LABS: Iron Binding Capacity,Total 305 ug/dL (250-450)
[2024-06-13 04:07] LABS: GGTP 938 IU/L (0-65)
== END | disposition home or self-care (01) ==
LOC: LAB 11:35
PROVIDERS: PCP Family Medicine; Referring Provider Family Medicine; Visit Provider Family Medicine
DX: G62.9 Polyneuropathy, unspecified (principal)
CPT/HCPCS: 36415; 80053; 82306; 82607; 82728; 82977; 83540; 83550; 83735; 84165; 84443; 85025; 85652; 86038; 86140

== ENCOUNTER → 2024-06-21 | Outpatient (CLI) | payer MEDICARE, OTHER, SELFPAY ==
--- NOTE | 2024-06-21 07:16 | US_ITS ---
STUDY: ABDOMINAL ULTRASOUND - RIGHT UPPER QUADRANT; ELASTOGRAPHY REASON FOR VISIT: Male, 69 years old. Abnormal liver enzymes. TECHNIQUE: Ultrasound evaluation of the right upper quadrant was performed with real-time and static stoll-scale imaging. Point quantification shear wave elastography was performed ([employer]). TECHNICAL QUALITY: Adequate. COMPARISON: None. FINDINGS: Liver: The liver is enlarged and measures 20 cm. There is increased echogenicity consistent with fatty infiltration. The bile ducts are within normal limits. There is hepatic color flow. The direction of portal flow is hepatopetal. There is no demonstrated mass lesion. Median liver stiffness measured 10.7 kPa. Gallbladder: The patient is status post cholecystectomy. Common Bile Duct (C.B.D.): The common bile duct measures 3.4 mm. Pancreas: The pancreas was not visualized due to overlying bowel gas. Right Kidney: Normal size of the right kidney. The right kidney measures 12.4 cm x 5.2 cm x 5.9 cm. Normal renal cortex. The right cortex measures 1.8 cm. There is a 1.5 cm x 1.8 cm x 1 cm renal cyst. There is no right hydronephrosis. US/Elastography Parenchyma/Organ IMPRESSION: 1. Liver stiffness measures 10.7 kPa compatible with F2-F3 (Mild to moderate liver fibrosis) Metavir score. 2. Hepatomegaly and fatty infiltration of the liver. Electronically Signed: Mauricio Ruiz MD at 10:03 EDT ,
== END | disposition home or self-care (01) ==
LOC: US 07:14
PROVIDERS: PCP Family Medicine; Referring Provider Family Medicine; Visit Provider Family Medicine
DX: R79.89 Other specified abnormal findings of blood chemistry (principal)
CPT/HCPCS: 76981

== ENCOUNTER → 2024-08-29 | Outpatient (CLI) | payer MEDICARE, OTHER, SELFPAY ==
[2024-08-29 14:31] LABS: PSA,Total- Diagnostic 7.58 ng/mL (0.0-4.0)
== END | disposition home or self-care (01) ==
LOC: LAB 13:25
PROVIDERS: PCP Family Medicine; Referring Provider Urology; Visit Provider Urology
DX: C61 Malignant neoplasm of prostate (principal)
CPT/HCPCS: 36415; 84153

== ENCOUNTER 2024-12-30 14:28 | Emergency (ER) | payer MEDICARE, OTHER, SELFPAY ==
[2024-12-30 14:29] VITALS: BP 149/81; PULSE 91; RESP 16; TEMP 36.4; O2SAT 97
--- NOTE | 2024-12-30 16:03 | EX.ED.DYSGE1 ---
HPI <ARSENIO Nunez - Last Filed: 12/30/24 17:50> History of Present Illness Chief Complaint: Lower Extremity Injury Narrative Narrative: Patient is a 69-year-old male with history of hypertension, back pain who presents to the emergency department for 4 days of worsening pain to the left leg. Patient states in 2008, he had a staph infection to his lumbar spine, he had to have surgery as well as multiple weeks of antibiotics. Patient states in 2022, patient had a surgery to his lower lumbar spine for pain in [place]. The last 4 days, patient states has been having similar symptoms with significant pain to his left lower leg. He states it wraps around his left thigh. Can go down to his foot. He states that difficulty ambulating, using his walker. However the pain is mostly worse at nighttime. Patient states today he was able to drive to multiple places for work, however he is concerned that at night it can get worse again. He denies any back pain, denies any fever or chills, denies any nausea or vomiting. Denies any bowel or bladder incontinence. [facility] <ARSENIO Nunez - Last Filed: 12/30/24 17:50> [facility] Medical History (Updated 12/30/24 @ 17:46 by ARSENIO Nunez) Wears glasses Cancer Alcohol use Prostate disease Injury of back History of diverticulitis Non-smoker Rash HTN (hypertension) Home Medications ?Medication ?Instructions ?Recorded ?Last Taken ?Type lisinopril 20 1 tab PO DAILY 09/18/19 12/15/23 History mg-hydrochlorothiazide 25 mg tablet coenzyme Q10 75 mg capsule (Ultra 75 mg PO DAILY 02/04/20 Unknown History CoQ10) gabapentin 300 mg capsule 300 mg PO QHS #30 caps 12/30/24 Unknown Rx oxycodone-acetaminophen 5 mg-325 1 tab PO Q8H PRN pain 3 days #10 12/30/24 Unknown Rx mg tablet (Percocet) tabs prednisone 50 mg tablet 50 mg PO DAILY #6 tabs 12/30/24 Unknown Rx Allergy/AdvReac Type Severity Reaction Status Date / Time No Known Allergies Allergy Verified 12/15/23 12:34 Family History Brother Heart disease Surgical History History of bilateral cataract extraction History of spinal surgery Status post laparoscopic cholecystectomy s/p pilonidal cystectomy Social History (Updated 02/05/20 @ 12:[address] Horace Luu MD) Smoking Status: Never smoker alcohol intake: current ROS <ARSENIO Nunez - Last Filed: 12/30/24 17:50> ROS ED ROS Narrative Constitutional: Negative for fever, chills, weight loss, weakness Eyes: Negative for vision loss, vision change, double vision ENT: Negative for any sore throat, ear pain, congestion Cardiovascular: Negative for any chest pain, tightness, palpitations Respiratory: Negative for any cough, sputum production, hemoptysis, dyspnea, dyspnea on exertion, orthopnea Gastrointestinal: Negative for any abdominal pain, nausea, vomiting, diarrhea, constipation, blood in stool, blood in vomit : Negative for any urinary frequency, dysuria, retention, blood in urine Muscle skeletal: Negative for any neck pain. Positive left upper leg pain Neurological: Negative for any headache, syncope, dizziness Skin: Negative for any rashes, itching, abrasions, lacerations Psychiatric: Negative for any depression, anxiety, stress, suicidal ideation, homicidal ideation Hematologic: Negative for any excessive bruising, easy bleeding EXAM <ARSENIO Nunez - Last Filed: 12/30/24 17:50> Physical Exam Narrative Exam Narrative: Vital signs reviewed. Patient sitting at rest is in no distress. HEET: Head normocephalic atraumatic, TMs clear bilaterally. Posterior pharynx is clear, moist mucous membranes. Nares clear bilaterally. Neck: Supple with no lymphadenopathy or tenderness. No signs of meningismus. Cardiac: Regular rate and rhythm no murmurs gallops or rubs, equal peripheral pulses bilaterally. Respiratory: Lungs clear to auscultation bilaterally. No chest tenderness. Abdomen: Soft, nontender, nondistended. No abdominal bruit or pulsatile masses. No hepatosplenomegaly Extremities: No peripheral edema, no signs of gross trauma or deformity. Active full range of motion of all extremities. Patient states the pain is more towards the left lateral thigh going midline. Neuro: Cranial nerves II through XII intact, no focal neurological deficits. Patient is able dorsiflex, plantarflex both feet against resistance. Neurovascular intact. Patient did have increased pain with straight leg raise. Skin: Clean dry and intact with no rash, purpura, petechiae, vesicles or pustules. Backs/flank: No CVA tenderness, no midline spinal tenderness, no deformity. I had the patient sit up, patient had no pain on palpation to the lower lumbar spine. Psych: Normal mood and affect. No SI, HI or acute psychosis. Const Vital Signs: 12/30/24 14:29 12/30/24 16:29 12/30/24 17:28 Temperature 97.5 F L Temperature Source Temporal Pulse Rate 91 67 83 Respiratory Rate 16 16 16 Blood Pressure 149/81 H 167/88 H 139/67 H Blood Pressure Mean 103 114 91 Pulse Ox 97 97 98 Oxygen Delivery Method Room Air Room Air 12/30/24 18:00 Temperature 98.7 F Temperature Source Pulse Rate 88 Respiratory Rate 16 Blood Pressure 139/69 H Blood Pressure Mean 92 Pulse Ox 98 Oxygen Delivery Method Positive well nourished and well developed General Appearance ED: well developed <Dr. Job Crum DO - Last Filed: 12/31/24 00:44> Physical Exam Const Vital Signs: 12/30/24 14:29 12/30/24 16:29 12/30/24 17:28 Temperature 97.5 F L Temperature Source Temporal Pulse Rate 91 67 83 Respiratory Rate 16 16 16 Blood Pressure 149/81 H 167/88 H 139/67 H Blood Pressure Mean 103 114 91 Pulse Ox 97 97 98 Oxygen Delivery Method Room Air Room Air 12/30/24 18:00 Temperature 98.7 F Temperature Source Pulse Rate 88 Respiratory Rate 16 Blood Pressure 139/69 H Blood Pressure Mean 92 Pulse Ox 98 Oxygen Delivery Method MDM <ARSENIO Nunez - Last Filed: 12/30/24 17:50> [facility] Lab Data Labs: Laboratory Results - last 24 hr 12/30/24 16:24 WBC 6.7 RBC 4.33 L Hgb 14.4 Hct 40.5 MCV 93.5 MCH 33.3 H MCHC 35.6 RDW Std Deviation 38.9 RDW Coeff of Yaneli 11.4 L Plt Count 179 MPV 10.4 Immature Gran % (Auto) 0.400 Neut % (Auto) 59.8 Lymph % (Auto) 28.1 [place] % (Auto) 10.4 H Eos % (Auto) 1.0 Baso % (Auto) 0.3 Absolute Neuts (auto) 4.0 Absolute Lymphs (auto) 1.89 Nucleated RBC % 0 ESR 1 Sodium 137 Potassium 3.5 Chloride 101 Carbon Dioxide 30.0 Anion Gap 5 BUN 16 Creatinine 0.98 Estim Creat Clear Calc 83.94 Est GFR (MDRD) Af Amer 98 Est GFR (MDRD) Non-Af 81 BUN/Creatinine Ratio 16.4 Glucose 118 H Calcium 9.2 C-React Prot Ext Range 4.59 H Treatment and Re-Evaluation :: Differential diagnosis includes however is not limited to: Sciatica, lumbar radiculopathy, spinal abscess, cauda equina, acute on chronic pain Patient appears generally well, vital signs are stable, patient is nontoxic-appearing. Presenting to the [facility] apartment for 4 days of left leg pain. Patient does have a history of back pain, lumbar infection however patient has showing no infectious signs or symptoms. Patient has no pain to his lower back. At this time, patient received basic laboratory values including inflammatory markers. IV morphine, Zofran, Toradol will be ordered. Patient will need to be reevaluated. Patient's laboratory values show a normal CBC, patient's chemistries are unremarkable, CRP and sed rate were negative. No evidence of any infection. On reevaluation, the patient is feeling slightly improved. Patient was given Valium as well as gabapentin with Solu-Medrol IV. At this time, I do believe the patient is stable for discharge. Patient will be given a prescription for pain medicine, gabapentin, steroid burst, he will also be given referral to spine surgery as well as pain management. He was given strict return precautions to return for any worsening back pain, fever chills nausea or vomiting. All questions answered, stable for discharge. <Dr. Job Crum, DO - Last Filed: 12/31/24 00:44> MDM MDM Narrative Medical decision making narrative: Interventions / MDM: Differential diagnosis: Sciatica, lumbar radiculopathy Diagnosis considered but do not suspect: No clinical necrotizing fasciitis, no compartment syndrome My EKG interpretation: N/A Imaging independently reviewed and interpreted by myself: N/A External documents reviewed: N/A Test considered but not ordered:N/A ED course: Attending note: I have personally performed a face to face assessment of the patient and have reviewed the JACKELIN note. I personally made/approved the management plan and take responsibility for the patient management. I performed a substantive portion of the visit including all aspects of the following. My pang findings include: 4 -day history worsening left lower back pain radiating to his inner left thigh. No fever or chills. Reports had a staph infection of his back in 2008 treated with IV antibiotics. No surgical intervention. Couple years ago had lower lumbar surgery L4-L5 and L5-S1. He had weakness to his right lower extremity at that time. That is improved. Denies traumatic injuries prior to this occurrence. No loss of bowel or bladder control. No weakness. Exam is uncomfortable left lumbar tenderness straight leg test negative no redness to the left thigh soft compartments no crepitus. She treated for his pain symptoms with muscle relaxers and steroids. He started on gabapentin. He did have labs white count normal ESR normal slightly elevated CRP, clinically no infectious findings or concerns. Outpatient follow-up with his doctors. Re-evaluation: stable Disposition discussed with patient/family/significant other: Patient Case discussed with consulting clinician: N/A This note was generated with [employer] dictation software. It may contain incorrect words, spelling, and punctuation that were not noted in checking the note before signing. Lab Data Attestation: I reviewed the patient's lab results. Labs: Laboratory Results - last 24 hr 12/30/24 16:24 WBC 6.7 RBC 4.33 L Hgb 14.4 Hct 40.5 MCV 93.5 MCH 33.3 H MCHC 35.6 RDW Std Deviation 38.9 RDW Coeff of Yaneli 11.4 L Plt Count 179 MPV 10.4 Immature Gran % (Auto) 0.400 Neut % (Auto) 59.8 Lymph % (Auto) 28.1 [place] % (Auto) 10.4 H Eos % (Auto) 1.0 Baso % (Auto) 0.3 Absolute Neuts (auto) 4.0 Absolute Lymphs (auto) 1.89 Nucleated RBC % 0 ESR 1 Sodium 137 Potassium 3.5 Chloride 101 Carbon Dioxide 30.0 Anion Gap 5 BUN 16 Creatinine 0.98 Estim Creat Clear Calc 83.94 Est GFR (MDRD) Af Amer 98 Est GFR (MDRD) Non-Af 81 BUN/Creatinine Ratio 16.4 Glucose 118 H Calcium 9.2 C-React Prot Ext Range 4.59 H Discharge Plan Triage Chief Complaint: Lower Extremity Injury ED Midlevel Provider: Jorge Kim ED Provider: Job Crum Dx/Rx/DC Orders Clinical Impression: Acute leg pain, Lumbar radiculopathy Instructions: ED Back Pain (Acute or Chronic), ED Sciatica Prescriptions: New oxycodone-acetaminophen [Percocet] 5-325 mg tablet 1 tab PO Q8H PRN (Reason: pain) 3 Days Qty: 10 0RF gabapentin 300 mg capsule 300 mg PO QHS Qty: 30 0RF prednisone 50 mg tablet 50 mg PO DAILY Qty: 6 0RF No Action Ultra CoQ10 75 mg capsule 75 mg PO DAILY lisinopril-hydrochlorothiazide 1 EACH tablet 1 tab PO DAILY Patient Comments: TAKE 1 TABLET BY MOUTH EVERY DAY Primary Care Provider: Dale Moody Referrals: Jonathon Stout MD [Med Staff - Active Staff] - Jose E Bowen MD [Med Staff - Active Staff] - Dale Moody MD [Primary Care Provider] - Activity Restrictions/Additional Instructions: Please follow-up outpatient. Use the gabapentin at nighttime, the prednisone is daily I prefer you to take it in the morning, the Percocet is for severe pain and rest. Please follow-up outpatient. Print Language: [place] Disposition Disposition: Home, Self Care Discharge Date/Time: 12/30/24 18:08
[2024-12-30 16:13] VITALS: BMI 30.4
[2024-12-30] MEDS: Ketorolac 15 MG/ML Vial IV (16:19)
[2024-12-30] MEDS: Morphine 4 MG/ML Syringe IV (16:19)
[2024-12-30] MEDS: Ondansetron 4 MG/2 ML Vial IV (16:20)
[2024-12-30 16:29] VITALS: BP 167/88; PULSE 67; RESP 16; O2SAT 97
[2024-12-30 16:43] LABS: Absolute Lymphocyte Count 1.89 X10^3/uL (0.83-4.51); Basophil# 0.02 X10^3/uL; Basophil% 0.3 % (0-1); Eosinophil# 0.07 X10^3/uL; Hematocrit 40.5 % (40-54); Hemoglobin 14.4 g/dL (13.0-16.5); Lymphocyte # 1.89 X10^3/ul (0.83-4.51); Lymphocyte % 28.1 % (19-41); Mean Corp Hgb Conc 35.6 g/dL (32-36); Mean Corpuscular Hgb 33.3 pg (27.0-32.0); Mean Corpuscular Volume 93.5 fL (80-94); Mean Platelet Vol. 10.4 fl (6.2-12.0); Monocyte% 10.4 % (0-10); NRBC Flagged by Analyzer 0 % (0-5); Neutrophil # 4.01 X10^3/uL (2.7-7.7); Neutrophil % 59.8 % (47-70); Platelet Count 179 K/mm3 (150-450); RBC Distribution Width CV 11.4 % (11.6-14.6); RBC Distribution Width SD 38.9 fl (35.1-43.9); Red Blood Count 4.33 M/mm3 (4.6-6.2); White Blood Count 6.7 K/mm3 (4.4-11.0)
[2024-12-30 17:03] LABS: Erythrocyte Sedimentation Rate 1 mm/hr (0-20)
[2024-12-30 17:20] LABS: Anion Gap 5 (5-15); BUN 16 mg/dL (7-18); BUN/Creat Ratio 16.4 RATIO (10-20); CRP 4.59 mg/L (0.0-3.0); Calcium,Total 9.2 mg/dL (8.5-10.1); Chloride 101 mmol/L (98-107); Creatinine, Serum 0.98 mg/dL (0.70-1.30); EST Glomerular Filtration Rate 81 mL/min (>60); Est Glom Filt Rate - Afr Amer 98 mL/min (>60); Estimated Creatinine Clearance 83.94 ml/min; Glucose 118 mg/dL (74-106); Potassium 3.5 mmol/L (3.5-5.1); Sodium Level 137 mmol/L (136-145)
[2024-12-30] MEDS: MethylPREDNISolone 125 MG/2 ML Vial 60 MG IV (17:26)
[2024-12-30] MEDS: diazePAM 5 MG Tablet PO (17:26)
[2024-12-30] MEDS: Gabapentin 300 MG Capsule PO (17:26)
[2024-12-30 17:28] VITALS: BP 139/67; PULSE 83; RESP 16; O2SAT 98
[2024-12-30 18:00] VITALS: BP 139/69; PULSE 88; RESP 16; TEMP 37.1; O2SAT 98
== END 2024-12-30 18:08 | disposition home or self-care (01) ==
PROVIDERS: Nurse Practitioner; Emergency Provider Emergency Medicine; PCP Family Medicine; Visit Provider Emergency Medicine
DX: M79.605 Pain in left leg (principal); M54.16 Radiculopathy, lumbar region; I10 Essential (primary) hypertension; Z79.890 Hormone replacement therapy
CPT/HCPCS: 80048; 85025; 85652; 86140; 96374; 96375; 99284; A4216; J2405

== ENCOUNTER → 2025-01-22 | Outpatient (CLI) | payer MEDICARE, OTHER, SELFPAY ==
[2025-01-22 10:48] LABS: ALB/GLOB Ratio 1.7 RATIO (0.9-2.4); AST(SGOT) 51 U/L (<=37); Alanine Aminotransfer ALT/SGPT 56 U/L (<=46); Albumin, Serum 4.2 g/dL (3.4-4.8); Alkaline Phosphatase 111 U/L (40-129); Anion Gap 14 (5-15); BUN 24 mg/dL (4-19); BUN/Creat Ratio 23.6 RATIO (10-20); Calcium 9.3 mg/dL (7.6-11.0); Chloride 101 mmol/L (96-108); EST Glomerular Filtration Rate 81 (>60); Globulin 2.4 g/dL (2.2-4.2); Glucose 165 mg/dL (70-99); Potassium 3.7 mmol/L (3.3-5.1); Protein, Total 6.6 g/dL (5.9-8.4); Sodium Level 139 mmol/L (133-145); Total Bilirubin 0.44 mg/dL (0.00-1.30)
[2025-01-22 16:03] LABS: Microalbumin,Random Urine < 12.0 mg/L (NO RANGE EST.)
[2025-01-23 08:08] LABS: GGTP 703 IU/L (0-65)
== END | disposition home or self-care (01) ==
LOC: MFPLAB 08:16
PROVIDERS: PCP Family Medicine; Referring Provider Family Medicine; Visit Provider Family Medicine
DX: E11.9 Type 2 diabetes mellitus without complications (principal); R79.89 Other specified abnormal findings of blood chemistry
CPT/HCPCS: 36415; 80053; 82043; 82977

== ENCOUNTER → 2025-02-28 | Outpatient (CLI) | payer MEDICARE, OTHER, SELFPAY ==
[2025-02-28 09:44] LABS: PSA,Total- Diagnostic 7.54 ng/mL (0.00-4.00)
== END | disposition home or self-care (01) ==
LOC: LAB 08:03
PROVIDERS: PCP Family Medicine; Referring Provider Nurse Practitioner; Visit Provider Nurse Practitioner
DX: C61 Malignant neoplasm of prostate (principal)
CPT/HCPCS: 36415; 84153

== ENCOUNTER → 2025-08-26 | Outpatient (CLI) | payer MEDICARE, OTHER, SELFPAY ==
[2025-08-26 09:12] LABS: PSA,Total- Diagnostic 7.46 ng/mL (0.00-4.00)
== END | disposition home or self-care (01) ==
PROVIDERS: PCP Family Medicine; Referring Provider Urology; Visit Provider Urology
DX: C61 Malignant neoplasm of prostate (principal)
CPT/HCPCS: 36415; 84153

== ENCOUNTER → 2025-09-12 | Outpatient (CLI) | payer MEDICARE, OTHER, SELFPAY ==
--- NOTE | 2025-09-12 08:07 | MRI_ITS ---
EXAM: PELVIS W/WO CONTRAST 09/12/2025 CLINICAL HISTORY: MALIGNANT NEOPLASM OF PROSTATE. Stable, elevated PSA. TECHNIQUE: Procedure Code: [id number] Modality: MR Procedure: PELVIS W/WO CONTRAST Multiplanar and multisequence images were obtained intravenous gadolinium contrast. CONTRAST: Clariscan VOLUME: 19 mL COMPARISON: Previous study dated 11/02/2023 FINDINGS: Image quality:Diagnostic PSA:7.46ng/mL Prostate size: 3.1 x 4.7 x 3.4cms Prostate volume: 25.94mL PSA density:0.288ng/mL^2 Prostate Peripheral zone: Lesion 1: Again demonstrated is a small lesion in the right midgland peripheral zone anterior image 20 on axial T2 is, image 18 on the ADC map T2 weighted imaging score:Homogeneous, moderately hypointense without extraprostatic extension. 4/5 DWI score: Focal markedly hypointense ADC map and hyperintense ADC high value DWI without extraprostatic extension. 4/5 DCE: Positive PI-RADS: PI-RADS 4: high (clinically significant cancer is likely to be present) Transitional zone: Moderate heterogeneity consistent with prostatic hyperplasia. No focal finding. T2 weighted imaging score:2 DWI score: 1 DCE score: Negative PI-RADS: PI-RADS 2: low (clinically significant cancer is unlikely to be present) Extra prostatic extension: Capsule is intact. Seminal vesicles: Normal. Neurovascular involvement: None. Lymphadenopathy: No lymphadenopathy. Bladder: Normal. Osseous structures: Status post lumbar fusion.. Gastrointestinal: Normal. Soft tissues: Dilated varices in the presacral fat. No lymphadenopathy. MRI/Pelvis W/WO Contrast IMPRESSION: Small lesion right midgland peripheral zone anterior appears slightly smaller t hobbs on the previous exam but this could be secondary to differences in scan/technique. PI-RADS: PI-RADS 4: high (clinically significant cancer is likely to be present ) Reading Location: [id number]
--- OUTSIDE RECORDS SUMMARY | 2025-09-12 08:10 | XMS RPT_ITS | CCD ---
Author Organization [facility] Care Team Providers Care Senior Clerk Name Role Phone Bree Moody MD Primary Care Provide r SNOOK, CHAN Admitting Unavailable MICHA MOLINAK Attending Unavailable BREE MOODY Primary Care Unavail able NEVILLE, VIJENDRA S Consulting Unavailable NEVILLE, VIJENDRA S Consulting Unavailable NEVILLE, VIJENDRA S Consulting Unavailable ALEXANDRAK, CHAN Referring Unavailable BREE MOODY Primary Care Unavail able Dr. Eron Moody Primary Care Provider [phone] Dr. Matt Oropeza Referring Provider Dr. Matt Oropeza Other Provider Dr. Yayo Martin Attending Provider Dr. Eron Moody Primary Care Provider [phone] Dr. Jim Pearce Attending Provider Dr. Hussain Gilliland Referring Provider [phone] Dr. Bree Moody MD Primary Care Provider Dr. Job Crum DO Attending Provider [phone] Job Crum DO Emergency Provider [phone] Bree Moody MD Attending Provider [phone] Dr. Bree Moody MD Referring Provider [phone] Helen Jackson Attending Provider Helen Jackson Referring Provider [phone] Bree Moody Primary Care Unavailable Bree Moody Attending Unavailable Bree Moody Referring Unavailable Bree Moody Primary Care Unavailable [place]Helen Attending Unavailable [place]Helen Referring Unavailable Bree Moody Primary Care Unavailable Job Crum Attending Unavailable Hussain Gilliland Attending Unavailable Hussain Gilliland Referring Unavailable Bree Moody Primary Care Unavailable Medications Current Medications Medication Drug Class(es) Dates Sig (Normalized) Sig (Original) acetaminophen 325 mg / oxyCODONE hydrochloride 5 mg oral tablet (3 sources) Opioid Agonist Start: 12-30-2024 take 1 tablet by mouth every eight hours as needed for pain Oxycodone-Acetami nophen (Percocet) 5-325 mg tablet Active 1 {tbl} PO Q8H as needed for pain 10 December 30, 2024 Start: 02-24-2023 End: 02-24-2023 oxyCODONE-acetaminophen (PER COCET) 5-325 mg per tablet 1 tablet gabapentin 300 mg oral capsule (2 sources) Anti-epileptic Agent Start: 12-30-2024 take 1 capsule by mouth at bedtime Gabapentin 300 mg capsule Active 300 mg PO AT BEDTIME December 30, 2024 1:00am hydroCHLOROthiazide / Lisinopril (12 sources) Thiazide Diuretic, Angiotensin Converting Enzyme Inhibitor Start: 02-26-2023 End: 02-25-2023 take 1 dose by mouth once daily oral, Daily, First dose on 02/26/23 at 0900 May resume postop day 1. H old for systolic blood pressure less than 110 Give both components for ZESTORETIC product Start: 02-25-2023 End: 02-25-2023 lisinopriL 20 mg, hydroCHLOR Othiazide 25 mg (for ZESTORETIC) Start: 09-18-2019 Lisinopril-Hyd rochlorothiazide 1 EACH tablet Active 1 {tbl} PO DAILY September 18, 2019 12:00am Start: 09-18-2019 take 1 tablet by anne th once daily Lisinopril-Hydrochlorothiazide Active 1 TABLET PO DAILY September 17, 2019 11:00pm oxyCODONE hydrochloride 5 mg oral tablet (2 sources) Opioid Agonist Start: 02-25-2023 End: 03-04-2023 take 1 tablet by mouth every four hours for pain oxyCODONE (ROXICODONE) 5 mg immediate release tablet Take 1 tablet (5 mg total) by mouth every 4 (four) hours if needed for moderate pain for up to 7 days. Max Daily Amount: 30 mg 40 tablet 0 02/25/2023 03/04/2023 Active Start: 02-24-2023 End: 02-25-2023 oxyCODONE (ROXICODONE) immed iate release tablet 5 mg predniSONE 50 mg oral tablet (2 sources) Start: 12-30-2024 take 1 tablet by mouth once daily Prednisone 50 mg tablet Active 50 mg PO DAILY December 30, 2024 1:00am ubidecarenone 75 mg oral capsule (8 sources) Start: 02-04-2020 Coenzyme Q10 ( Ultra Coq10) 75 mg capsule Active 75 mg PO DAILY February 04, 2020 12:00am Completed/Discontinued Medications Medication Drug Class(es) Dates Sig (Normalized) Sig (Original) acetaminophen 500 mg oral tablet (2 sources) Start: 02-24-2023 End: 02-25-2023 acetaminophen (TYLENOL) tablet 1,000 mg Start: 02-24-2023 End: 02-25-2023 take 1 tablet by mouth every six hours as needed acetaminophen (TYLENOL) tablet 650 mg aluminum hydroxide 40 mg/ml / magnesium hydroxide 40 mg/ml / simethicone 4 mg/ml oral suspension (1 source) Start: 02-24-2023 End: 02-25-2023 aluminum-magnesium hydroxide-simethicone (MAALOX) 200-200-20 mg/5 mL suspension 30 mL aspirin 81 mg oral tablet (2 sources) Platelet Aggregation Inhibitor, Nonsteroidal Anti-inflammator y Drug End: 02-25-2023 take 81 mg by mouth once daily ASPIRIN ORAL Take 81 mg by mouth 1 (one) time each day. 0 02/25/2023 Discontinued (Stop Taking at Discharge) bethanechol chloride 25 mg oral tablet (1 source) Cholinergic Muscarinic Agonist Start: 02-24-2023 End: 02-25-2023 bethanechol (URECHOLINE) tablet 25 mg bisacodyl 10 mg rectal suppository (1 source) Stimulant Laxative Start: 02-24-2023 End: 02-25-2023 bisacodyL (DULCOLAX) suppository 10 mg calcium chloride 0.0014 meq/ml / potassium chloride 0.004 meq/ml / sodium chloride 0.103 meq/ml / sodium lactate 0.028 meq/ml injectable solution (2 sources) Start: 02-24-2023 End: 02-25-2023 take 100 mL intravenously every hour 100 mL/hr, intravenous, Continuous, Starting on Mon02/24/23 at 1530 Start: 02-24-2023 End: 02-24-2023 lactated Ringer's infusion ceFAZolin (ANCEF) 2 gram/20 mL IV syringe 2 g (1 source) Start: 02-24-2023 End: 02-25-2023 2 g, intravenous, Administer over 3 Minutes, Every 8 hours, First dose on Mon02/24/23 at 2000, For 2 doses, Recovery & On Unit Indication: Prophylaxis-Surgical celecoxib 200 mg oral capsule (1 source) Nonsteroidal Anti-inflammator y Drug Start: 02-24-2023 End: 02-24-2023 celecoxib (CeleBREX) capsule 200 mg cloNIDine hydrochloride 0.1 mg oral tablet (1 source) Central alpha-2 Adrenergic Agonist Start: 02-25-2023 End: 02-25-2023 take 1 tablet by mouth every six hours as needed cloNIDine (CATAPRES) tablet 0.1 mg cyclobenzaprine hydrochloride 10 mg oral tablet (1 source) Muscle Relaxant Start: 02-24-2023 End: 02-25-2023 cyclobenzaprine (FLEXERIL) tablet 10 mg diphenhydrAMINE hydrochloride 25 mg oral capsule (1 source) Histamine-1 Receptor Antagonist Start: 02-24-2023 End: 02-25-2023 take 1 capsule by mouth every six hours as needed diphenhydrAMINE (BENADRYL) capsule 25 mg docusate sodium 100 mg oral capsule (1 source) Start: 02-24-2023 End: 02-25-2023 docusate sodium (COLACE) capsule 100 mg 0.5 ml HYDROmorphone hydrochloride 1 mg/ml prefilled syringe (1 source) Opioid Agonist Start: 02-24-2023 End: 02-25-2023 HYDROmorphone (DILAUDID) injection 0.5 mg magnesium hydroxide 80 mg/ml oral suspension (1 source) Start: 02-24-2023 End: 02-25-2023 magnesium hydroxide (MILK OF MAGNESIA) 400 mg/5 mL suspension 30 mL Naloxone (1 source) Opioid Antagonist Start: 02-24-2023 End: 02-25-2023 naloxone (NARCAN) injection 0.4 mg NON FORMULARY (2 sources) End: 02-25-2023 take 4 capsules by mouth twice daily NON FORMULARY Take 4 capsules by mouth 2 (two) times a day. Otc Relief Factor 0 02/25/2023 Discontinued (Stop Taking at Discharge) take 4 capsules by mouth twice d aily NON FORMULARY Take 4 capsules by mouth 2 (two) times a day. Otc Relief Factor 0 Suspended 2 ml ondansetron 2 mg/ml injection (1 source) Serotonin-3 Receptor Antagonist Start: 02-24-2023 End: 02-25-2023 take 4 mg intravenously every six hours as needed ondansetron (PF) (ZOFRAN) injection 4 mg Oxygen Therapy, Adult (1 source) Start: 02-24-2023 End: 02-25-2023 Oxygen Therapy, Adult polyethylene glycol 3350 54694 mg powder for oral solution (1 source) Osmotic Laxative Start: 02-24-2023 End: 02-25-2023 polyethylene glycol (MIRALAX) packet 17 g microencapsulated potassium chloride 20 meq extended release oral tablet (1 source) Start: 02-25-2023 End: 02-25-2023 potassium chloride (KLOR-CON M20) CR tablet 40 mEq promethazine hydrochloride 25 mg rectal suppository (2 sources) Phenothiazine Start: 02-24-2023 End: 02-25-2023 take 1 tablet by mouth every six hours as needed promethazine (PHENERGAN) tablet 25 mg Start: 02-24-2023 End: 02-25-2023 take 25 mg rectal route every six hours as needed promethazine (PHENERGAN) suppository 25 mg sennosides, snf 8.6 mg oral tablet (1 source) Start: 02-24-2023 End: 02-25-2023 senna (SENOKOT) tablet 17.2 mg traZODone hydrochloride 50 mg oral tablet (1 source) Serotonin Reuptake Inhibitor Start: 02-24-2023 End: 02-25-2023 traZODone (DESYREL) tablet 50 mg Problems Active Problems Problem Classification Problem Date Documented Da te Episodic/Chronic Cancer of prostate (1 source) Malignant neoplasm of prostate; Translations: [Malignant neoplasm of prostate] Onset: 09-06-2025 Chronic Diabetes mellitus without complication (1 source) Type 2 diabetes mellitus without complications; Translations: [Type 2 diabetes mellitus without complications] Onset: 02-05-2025 Chronic Other connective tissue disease (2 sources) Pain in lower limb; Translations: [Pain in leg, unspecified] 01-07-2025 Episodic Residual codes; unclassified (1 source) Pain; Translations: [Pain, unspecified] Episodic Residual codes; unclassified (1 source) Pain, unspecified; Translations: [Pain, unspecified] Onset: 02-24-2023 Episodic Spondylosis; intervertebral disc disorders; other back problems (9 sources) Lumbar spine ankylosis; Translations: [Fusion of spine, lumbar region] Onset: 02-24-2023 02-24-2023 Episodic Unclassified (8 sources) Age more than 65 years; Translations: [Over 65 years old] 10-18-2021 Viral infection (16 sources) Disease caused by 2019-nCoV; Translations: [COVID-19] 10-16-2021 Episodic Past or Other Problems Problem Classification Problem Date Documented Da te Episodic/Chronic Other connective tissue disease (1 source) Pain in left leg; Translations: [Pain in left leg] Onset: 01-17-2025 Episodic Unclassified (8 sources) s/p pilonidal cystectomy 06-16-2022 Results Test Name Value Interpretation Reference Range Facility PSA,Total- [facility] 09-3 PSA, DIAGNOSTIC 7.46 ng/mL High 0.00-4.00 [facility] Comment on above: Result Comment: This test was performed using the [facility] tPSA method. Measured values of a patient??sample can vary depending on the testing procedure used. PSA values determined on patient samples by different testing procedures cannot be used interchangeably. If there is a change in PSA assays while monitoring therapy, sequential testing should be performed to confirm baseline values. Performed By: #### L 501.9940 #### [facility] [address] [place], [place], [id number] Diagnostic total prostate sp ecific antigen (PSA) measurementOrdered By: Helen Jackson on 02-28-2025 Prostate Specific Antigen Total 7.54 ng/mL High 0.00-4.00 [facility] Comment on above: This test was perfor med using the [facility] tPSA method. Measured values of a patient sample can vary depending on the testing procedure used. PSA values determined on patient samples by different testing procedures cannot be used interchangeably. If there is a change in PSA assays while monitoring therapy, sequential testing should be performed to confirm baseline values. PSA,Total- [facility] PSA, DIAGNOSTIC 7.54 ng/mL High 0.00-4.00 [facility] Comment on above: Result Comment: This test was performed using the [facility] tPSA method. Measured values of a patient??sample can vary depending on the testing procedure used. PSA values determined on patient samples by different testing procedures cannot be used interchangeably. If there is a change in PSA assays while monitoring therapy, sequential testing should be performed to confirm baseline values. Performed By: #### L 501.9940 #### [facility] [address] [place], [place], [address] L501.5101on 01-23-2025 GGTP 703 IU/L Abnormal 0-65 [facility] Comment on above: Order Comment: Order Date: 01/22/25 Order Info: 2324-2 - GGTP Result Comment: Perf ormed at: [facility] [id number] Advertising Columnist: Ronald Hammond PhD, Phone: [phone] Performed By: #### L 501.5101, L500.4056 #### [facility] [address] [place], [place], [address] Albumin DL <= 20 mg/L (U) [M ass/Vol]Ordered By: Bree Moody on 01-22-2025 Urine Random Microalbumin < 12.0 mg/L NO RANGE EST. [facility] BUN/creatinine ratioOrdered By: Bree Moody on 01-22-2025 Urea nitrogen/Creatinine [Mass ratio] 23.6 mg/mg High 10-20 [facility] Bilirubin, totalOrdered By: Bree Moody on 01-22-2025 Bilirubin [Mass/Vol] 0.44 mg/dL 0.00-1.30 [facility] Carbon dioxide measurementOr dered By: Bree Moody on 01-22-2025 CO2 [Moles/Vol] 23.0 mmol/L 22.0-29.0 [facility] Chloride measurementOrdered By: Bree Moody on 01-22-2025 Chloride [Moles/Vol] 101 mmol/L 96-108 [facility] Comprehensive Metabolic Prof ilon 01-22-2025 Albumin [Mass/Vol] 4.2 g/dL Normal 3.4-4.8 [facility] Comment on above: Order Comment: Order Date: 01/22/25 Order Info: 0786-1 - CMP Performed By: #### L 501.5101, L500.4050 #### [facility] [address] [place], [address] Albumin/Globulin [Mass ratio] 1.7 {ratio} Normal 0.9-2.4 [facility] Comment on above: Order Comment: Order Date: 01/22/25 Order Info: 0786-1 - CMP Performed By: #### L 501.5101, L500.4050 #### [facility] [address] [place], [address] ALK PHOS 111 U/L Normal 40-129 [facility] Comment on above: Order Comment: Order Date: 01/22/25 Order Info: 0786-1 - CMP Performed By: #### L 501.5101, L500.4050 #### [facility] [address] [place], [address] ALT [Catalytic activity/Vol] 56 U/L High <=46 [facility] Comment on above: Order Comment: Order Date: 01/22/25 Order Info: 0786-1 - CMP Performed By: #### L 501.5101, L500.4050 #### [facility] [address] [place], [address] Anion gap [Moles/Vol] 14 mmol/L Normal 5-15 [facility] Comment on above: Order Comment: Order Date: 01/22/25 Order Info: 0786-1 - CMP Performed By: #### L 501.5101, L500.4050 #### [facility] [address] [place], [address] AST [Catalytic activity/Vol] 51 U/L High <=37 [facility] Comment on above: Order Comment: Order Date: 01/22/25 Order Info: 0786-1 - CMP Performed By: #### L 501.5101, L500.4050 #### [facility] [address] [place], [address] Bilirubin [Mass/Vol] 0.44 mg/dL Normal 0.00-1.30 [facility] Comment on above: Order Comment: Order Date: 01/22/25 Order Info: 0786-1 - CMP Performed By: #### L 501.5101, L500.4050 #### [facility] [address] [place], [address] BUN/CRE 23.6 RATIO High 10-20 [facility] Comment on above: Order Comment: Order Date: 01/22/25 Order Info: 0786-1 - CMP Performed By: #### L 501.5101, L500.4050 #### [facility] [address] [place], [address] Calcium [Mass/Vol] 9.3 mg/dL Normal 7.6-11.0 [facility] Comment on above: Order Comment: Order Date: 01/22/25 Order Info: 0786-1 - CMP Performed By: #### L 501.5101, [id number] #### [facility] [address] [place], [address] Chloride [Moles/Vol] 101 mmol/L Normal 96-108 [facility] Comment on above: Order Comment: Order Date: 01/22/25 Order Info: 0786-1 - CMP Performed By: #### L 501.5101, [id number] #### [facility] [address] [place], [address] CO2 [Moles/Vol] 23.0 mmol/L Normal 22.0-29.0 [facility] Comment on above: Order Comment: Order Date: 01/22/25 Order Info: 0786-1 - CMP Performed By: #### L 501.5101, [id number] #### [facility] [address] [place], [address] Creatinine [Mass/Vol] 1.0 mg/dL Normal 0.8-1.3 [facility] Comment on above: Order Comment: Order Date: 01/22/25 Order Info: 0786-1 - CMP Performed By: #### L 501.5101, [id number] #### [facility] [address] [place], [address] GFR/1.73 sq M.predicted among non-blacks MDRD (S/P/Bld) [Vol rate/Area] 81 mL/min/{1.73_m2} Normal >60 [facility] Comment on above: Order Comment: Order Date: 01/22/25 Order Info: 0786-1 - CMP Result Comment: mL/m in/1.73m2 CKD-EPI Creatinine Equation (2020) Performed By: #### L 501.5101, [id number] #### [facility] [address] [place], [address] Globulin (S) [Mass/Vol] 2.4 g/dL Normal 2.2-4.2 [facility] Comment on above: Order Comment: Order Date: 01/22/25 Order Info: 0786-1 - CMP Performed By: #### L 501.5101, [id number] #### [facility] [address] [place], [address] Glucose [Mass/Vol] 165 mg/dL High 70-99 [facility] Comment on above: Order Comment: Order Date: 01/22/25 Order Info: 0786-1 - CMP Performed By: #### L 501.5101, [id number] #### [facility] [address] [place], [address] Potassium [Moles/Vol] 3.7 mmol/L Normal 3.3-5.1 [facility] Comment on above: Order Comment: Order Date: 01/22/25 Order Info: 0786-1 - CMP Performed By: #### L 501.5101, [id number] #### [facility] [address] [place], [address] Sodium [Moles/Vol] 139 mmol/L Normal 133-145 [facility] Comment on above: Order Comment: Order Date: 01/22/25 Order Info: 0786-1 - CMP Performed By: #### L 501.5101, [id number] #### [facility] [address] [place], [address] T PROT 6.6 g/dL Normal 5.9-8.4 [facility] Comment on above: Order Comment: Order Date: 01/22/25 Order Info: 0786-1 - CMP Performed By: #### L 501.5101, [id number] #### [facility] [address] [place], [address] Urea nitrogen [Mass/Vol] 24 mg/dL High 4-19 [facility] Comment on above: Order Comment: Order Date: 01/22/25 Order Info: 0786-1 - CMP Performed By: #### L 501.5101, [id number] #### [facility] [address] [place], [address] Creatinine [Moles/Vol]Ordere d By: Bree Moody on 01-22-2025 Creatinine [Mass/Vol] 1.0 mg/dL 0.8-1.3 [facility] GFR/1.73 sq M.predicted giselle g non-blacks MDRD (S/P/Bld) [Vol rate/Area]Ordered By: Bree Moody on 01-22-2025 Estimated GFR (MDRD) Non-Af Amer 81 >60 [facility] Comment on above: mL/min/1.73m2 CKD-EP I Creatinine Equation (2020) Gamma glutamyl transferase ( GGT) measurementOrdered By: Bree Moody on 01-22-2025 Amylase [Catalytic activity/Vol] 703 U/L High 0-65 [facility] Comment on above: Performed at: [address] [id number] Director: Ronald Hammond PhD, Phone: [phone] Laboratory - Chemistry and C hemistry - challengeOrdered By: Bree Moody on 01-22-2025 AST [Catalytic activity/Vol] 51 U/L High <38 [facility] Microalbumin,Random Urineon 01-22-2025 MICROALBUMIN,UR < 12.0 Normal NO RANGE EST. [facility] Comment on above: Order Comment: Order Date: 01/22/25 Order Info: [id number] - MIALB Performed By: #### L 502.0500 #### [facility] [address] [place] [address]. [place], [address] Serum globulin measurementOr dered By: Bree Moody on 01-22-2025 Globulin (S) [Mass/Vol] 2.4 g/dL 2.2-4.2 [facility] Serum glucose measurement (m ass/volume)Ordered By: Bree Moody on 01-22-2025 Glucose [Mass/Vol] 165 mg/dL High 70-99 [facility] Serum or plasma alanine rdz otransferase (ALT) measurementOrdered By: Bree Moody on 01-22-2025 ALT [Catalytic activity/Vol] 56 U/L High <47 [facility] Serum or plasma albumin rory urement (mass/volume)Ordered By: Bree Moody on 01-22-2025 Albumin [Mass/Vol] 4.2 g/dL 3.4-4.8 [facility] Serum or plasma albumin/glob ulin mass ratioOrdered By: Bree Moody on 01-22-2025 Albumin/Globulin [Mass ratio] 1.7 {ratio} 0.9-2.4 [facility] Serum or plasma alkaline hua sphatase measurementOrdered By: Bree Moody on 01-22-2025 ALP [Catalytic activity/Vol] 111 U/L 40-129 [facility] Serum or plasma anion gap de termination (moles/volume)Ordered By: Bree Moody on 01-22-2025 Anion gap [Moles/Vol] 14 mmol/L 5-15 [facility] Serum or plasma calcium rory urement (mass/volume)Ordered By: Bree Moody on 01-22-2025 Calcium [Mass/Vol] 9.3 mg/dL 7.6-11.0 [facility] Serum or plasma potassium me asurementOrdered By: Bree Moody on 01-22-2025 Potassium [Moles/Vol] 3.7 mmol/L 3.3-5.1 [facility] Serum or plasma sodium measu rement (moles/volume)Ordered By: Bree Moody on 01-22-2025 Sodium [Moles/Vol] 139 mmol/L 133-145 [facility] Serum or plasma urea nitroge n measurement (mass/volume)Ordered By: Bree Moody on 01-22-2025 Urea nitrogen [Mass/Vol] 24 mg/dL High 4-19 [facility] Total proteinOrdered By: Radha Moody on 01-22-2025 Protein [Mass/Vol] 6.6 g/dL 5.9-8.4 [facility] Absolute neutrophil countOrd ered By: Jorge Kim on 12-30-2024 Neutrophils (Bld) [#/Vol] 4.0 10*3/uL 2.0-7.7 [facility] Basic Metabolic Profile (BMP )on 12-30-2024 BUN/CRE 16.4 RATIO Normal 10-20 [facility] Comment on above: Performed By: #### L 100.0100, L101.9900, L501.6710, L500.2500 #### [facility] [address] [place], [address] CA,Total 9.2 mg/dL Normal 8.5-10.1 [facility] Comment on above: Performed By: #### L 100.0100, L101.9900, L501.6710, L500.2500 #### [facility] [address] [place], [address] Chloride [Moles/Vol] 101 mmol/L Normal 98-107 [facility] Comment on above: Performed By: #### L 100.0100, L101.9900, L501.6710, L500.2500 #### [facility] [address] [place], [address] CO2 [Moles/Vol] 30.0 mmol/L Normal 21.0-32.0 [facility] Comment on above: Performed By: #### L 100.0100, L101.9900, L501.6710, L500.2500 #### [facility] [address] [place], [address] Creatinine [Mass/Vol] 0.98 mg/dL Normal 0.70-1.30 [facility] Comment on above: Result Comment: The validity of the calculated GFR GFRAA in patients over 70 years has not been determined. Clinical correlation is essential. Performed By: #### L 100.0100, L101.9900, L501.6710, L500.2500 #### [facility] [address] [place], [address] ECRCL 83.94 ml/min Normal [facility] Comment on above: Performed By: #### L 100.0100, L101.9900, L501.6710, L500.2500 #### [facility] [address] [place], [address] EST GFR - AA 98 mL/min Normal >60 [facility] Comment on above: Result Comment: Afri can Bulgarian GFR Calc Performed By: #### L 100.0100, L101.9900, L501.6710, L500.2500 #### [facility] [address] [place], [address] GAP 5 Normal 5-15 [facility] Comment on above: Performed By: #### L 100.0100, L101.9900, L501.6710, L500.2500 #### [facility] [address] [place], [address] GFR/1.73 sq M.predicted among non-blacks MDRD (S/P/Bld) [Vol rate/Area] 81 mL/min/{1.73_m2} Normal >60 [facility] Comment on above: Result Comment: Non- GFR Calc Performed By: #### L 100.0100, L101.9900, L501.6710, L500.2500 #### [facility] [address] [place], [address] Glucose [Mass/Vol] 118 mg/dL High 74-106 [facility] Comment on above: Result Comment: Fast ing Glucose result from 100 to 125 mg/dL suggests IMPAIRED HOMEOSTASIS per A.D.A. criteria. Performed By: #### L 100.0100, L101.9900, L501.6710, L500.2500 #### [facility] [address] [place], [address] Potassium [Moles/Vol] 3.5 mmol/L Normal 3.5-5.1 [facility] Comment on above: Performed By: #### L 100.0100, L101.9900, L501.6710, L500.2500 #### [facility] [address] [place], [address] Sodium [Moles/Vol] 137 mmol/L Normal 136-145 [facility] Comment on above: Performed By: #### L 100.0100, L101.9900, L501.6710, L500.2500 #### [facility] [address] [place], [address] Urea nitrogen [Mass/Vol] 16 mg/dL Normal 7-18 [facility] Comment on above: Performed By: #### L 100.0100, L101.9900, L501.6710, L500.2500 #### [facility] [address] [place], [address] Basophil percentageOrdered B y: Jorge Kim on 12-30-2024 Basophils/100 WBC (Bld) 0.3 % 0-1 [facility] Blood urea nitrogen (BUN)/cr eatinine ratioOrdered By: Jorge Kim on 12-30-2024 Urea nitrogen/Creatinine [Mass ratio] 16.4 mg/mg 10-20 [facility] C-reactive protein measureme nt by high sensitivity methodOrdered By: Jorge Kim on 12-30-2024 C-Reactive Protein Extended Range 4.59 mg/L High 0.0-3.0 [facility] Comment on above: C-Reactive Protein ( CRP) provides useful information for thediagnosis, therapy and monitoring of inflammatory processesand associated diseases. For the evaluation of Relative Riskfor Cardiovascular Disease, a High Sensitivity CRP (HSCRP)should be ordered. CBC W/Diff, Automatedon Absolute Lymph 1.89 X10 3/uL Normal 0.83-4.51 [facility] Comment on above: Performed By: #### L 100.0100, L101.9900, L501.6710, L500.2500 #### [facility] [address] [place], [address] Absolute Neut 4.0 X10 3/uL Normal 2.0-7.7 [facility] Comment on above: Performed By: #### L 100.0100, L101.9900, L501.6710, L500.2500 #### [facility] [address] [place], [address] Basophils/100 WBC (Bld) 0.3 % Normal 0-1 [facility] Comment on above: Performed By: #### L 100.0100, L101.9900, L501.6710, L500.2500 #### [facility] [address] [place], [address] Eosinophils/100 WBC (Bld) 1.0 % Normal 0-5 [facility] Comment on above: Performed By: #### L 100.0100, L101.9900, L501.6710, L500.2500 #### [facility] [address] [place], [address] Erythrocyte distribution width (RBC) [Ratio] 11.4 % Low 11.6-14.6 [facility] Comment on above: Performed By: #### L 100.0100, L101.9900, L501.6710, L500.2500 #### [facility] [address] [place], [address] Hematocrit (Bld) [Volume fraction] 40.5 % Normal 40-54 [facility] Comment on above: Performed By: #### L 100.0100, L101.9900, L501.6710, L500.2500 #### [facility] [address], [address] Hemoglobin (Bld) [Mass/Vol] 14.4 g/dL Normal 13.0-16.5 [facility] Comment on above: Performed By: #### L 100.0100, L101.9900, L501.6710, L500.2500 #### [facility] [address] [place], [address] IG% 0.400 Normal 0.0-0.9 [facility] Comment on above: Result Comment: IG% - Immature Granulocytes (promyelocytes, myelocytes and metamyelocytes) > 1% indicates that a LEFT SHIFT is Present. Performed By: #### L 100.0100, L101.9900, L501.6710, L500.2500 #### [facility] [address] [place], [address] Lymphocytes/100 WBC (Bld) 28.1 % Normal 19-41 [facility] Comment on above: Performed By: #### L 100.0100, L101.9900, L501.6710, L500.2500 #### [facility] [address] [place], [address] MCH (RBC) [Entitic mass] 33.3 pg High 27.0-32.0 [facility] Comment on above: Performed By: #### L 100.0100, L101.9900, L501.6710, L500.2500 #### [facility] [address] [place], [address] MCHC (RBC) [Mass/Vol] 35.6 g/dL Normal 32-36 [facility] Comment on above: Performed By: #### L 100.0100, L101.9900, L501.6710, L500.2500 #### [facility] [address] [place], [address] MCV (RBC) [Entitic vol] 93.5 fL Normal 80-94 [facility] Comment on above: Performed By: #### L 100.0100, L101.9900, L501.6710, L500.2500 #### [facility] [address] [place], [address] Monocytes/100 WBC (Bld) 10.4 % High 0-10 [facility] Comment on above: Performed By: #### L 100.0100, L101.9900, L501.6710, L500.2500 #### [facility] [address] [place], [address] Neutrophils/100 WBC (Bld) 59.8 % Normal 47-70 [facility] Comment on above: Performed By: #### L 100.0100, L101.9900, L501.6710, L500.2500 #### [facility] [address] [place], [address] Nucleated RBC (Bld) [#/Vol] 0 10*3/uL Normal 0-5 [facility] Comment on above: Performed By: #### L 100.0100, L101.9900, L501.6710, L500.2500 #### [facility] [address] [place], [address] Platelet mean volume (Bld) [Entitic vol] 10.4 fL Normal 6.2-12.0 [facility] Comment on above: Performed By: #### L 100.0100, L101.9900, L501.6710, L500.2500 #### [facility] [address] [place], [address] Platelets (Bld) [#/Vol] 179 10*3/uL Normal 150-450 [facility] Comment on above: Performed By: #### L 100.0100, L101.9900, L501.6710, L500.2500 #### [facility] [address] [place], [address] RBC (Bld) [#/Vol] 4.33 10*6/uL Low 4.6-6.2 [facility] Comment on above: Performed By: #### L 100.0100, L101.9900, L501.6710, L500.2500 #### [facility] [address] [place], [address] RDW SD 38.9 fl Normal 35.1-43.9 [facility] Comment on above: Performed By: #### L 100.0100, L101.9900, L501.6710, L500.2500 #### [facility] [address] [place], [address] WBC (Bld) [#/Vol] 6.7 10*3/uL Normal 4.4-11.0 [facility] Comment on above: Performed By: #### L 100.0100, L101.9900, L501.6710, L500.2500 #### [facility] [address] [place], [address] CRPon 12-30-2024 C-REACTIVE PROT 4.59 mg/L High 0.0-3.0 [facility] Comment on above: Result Comment: C-Re active Protein (CRP) provides useful information for the diagnosis, therapy and monitoring of inflammatory processes and associated diseases. For the evaluation of Relative Risk for Cardiovascular Disease, a High Sensitivity CRP (HSCRP) should be ordered. Performed By: #### L 100.0100, L101.9900, L501.6710, L500.2500 #### [facility] [address] [place], [address] Carbon dioxide measurementOr dered By: Jorge Kim on 12-30-2024 CO2 [Moles/Vol] 30.0 mmol/L 21.0-32.0 [facility] Chloride measurementOrdered By: Jorge Kim on 12-30-2024 Chloride [Moles/Vol] 101 mmol/L 98-107 [facility] Emergency Department Summary on 12-30-2024 Emergency Department Summary [facility] Medical Records Department [address] [place] [address] Emergency Department Summary 12/30/24 MR#: [id number] Acct: [id number] Name: TALITA APPIAH Rep #: [id number] : [id number] 69 From: Job Vasquez PCP: Dr. Bree Moody MD Status:DEP ER Location: ED HPI History of Present Illness Chief Complaint: Lower Extremity Injury Narrative Narrative: Patient is a 69-year-old male with history of hypertension, back pain who presents to the emergency department for 4 days of worsening pain to the left leg. Patient states in 2008, he had a staph infection to his lumbar spine, he had to have surgery as well as multiple weeks of antibiotics. Patient states in 2022, patient had a surgery to his lower lumbar spine for pain in [place]. The last 4 days, patient states has been having similar symptoms with significant pain to his left lower leg. He states it wraps around his left thigh. Can go down to his foot. He states that difficulty ambulating, using his walker. However the pain is mostly worse at nighttime. Patient states today he was able to drive to multiple places for work, however he is concerned that at night it can get worse again. He denies any back pain, denies any fever or chills, denies any nausea or vomiting. Denies any bowel or bladder incontinence. [facility] Medical History (Updated 12/30/24 @ 17:46 by Jorge Kim NP-C) Wears glasses Cancer Alcohol use Prostate disease Injury of back History of diverticulitis Non-smoker Rash HTN (hypertension) Home Medications ???Medication ???Instructions ???Recorded ???Last Taken ???Type lisinopril 20 1 tab PO DAILY 09/18/19 12/15/23 H istory mg-hydrochlorothiaz magaly 25 mg tablet coenzyme Q10 75 mg capsule (Ultra 75 mg PO DAILY 02/04/20 Unknown H istory CoQ10) gabapentin 300 mg capsule 300 mg PO QHS #30 caps 12/30/24 Un known Rx oxycodone-acetamino phen 5 mg-325 1 tab PO Q8H PRN pain 3 days #10 0 12/30/24 Unknown Rx mg tablet (Percocet) tabs prednisone 50 mg tablet 50 mg PO DAILY #6 tabs 12/30/24 Un known Rx Allergy/AdvReac Type Severity Reaction Status Date / Time No Known Allergies Allergy Verified 12/15/23 12:34 Family History Brother Heart disease Surgical History History of bilateral cataract extraction History of spinal surgery Status post laparoscopic cholecystectomy s/p pilonidal cystectomy Social History (Updated 02/05/20 @ 12:[address] Horace Luu MD) Smoking Status: Never smoker alcohol intake: current ROS ROS ED ROS Narrative Constitutional: Negative for fever, chills, weight loss, weakness Eyes: Negative for vision loss, vision change, double vision ENT: Negative for any sore throat, ear pain, congestion Cardiovascular: Negative for any chest pain, tightness, palpitations Respiratory: Negative for any cough, sputum production, hemoptysis, dyspnea, dyspnea on exertion, orthopnea Gastrointestinal: Negative for any abdominal pain, nausea, vomiting, diarrhea, constipation, blood in stool, blood in vomit : Negative for any urinary frequency, dysuria, retention, blood in urine Muscle skeletal: Negative for any neck pain. Positive left upper leg pain Neurological: Negative for any headache, syncope, dizziness Skin: Negative for any rashes, itching, abrasions, lacerations Psychiatric: Negative for any depression, anxiety, stress, suicidal ideation, homicidal ideation Hematologic: Negative for any excessive bruising, easy bleeding EXAM Physical Exam Narrative Exam Narrative: Vital signs reviewed. Patient sitting at rest is in no distress. HEET: Head normocephalic atraumatic, TMs clear bilaterally. Posterior pharynx is clear, moist mucous membranes. Nares clear bilaterally. Neck: Supple with no lymphadenopathy or tenderness. No signs of meningismus. Cardiac: Regular rate and rhythm no murmurs gallops or rubs, equal peripheral pulses bilaterally. Respiratory: Lungs clear to auscultation bilaterally. No chest tenderness. Abdomen: Soft, nontender, nondistended. No abdominal bruit or pulsatile masses. No hepatosplenomegaly Extremities: No peripheral edema, no signs of gross trauma or deformity. Active full range of motion of all extremities. Patient states the pain is more towards the left lateral thigh going midline. Neuro: Cranial nerves II through XII intact, no focal neurological deficits. Patient is able dorsiflex, plantarflex both feet against resistance. Neurovascular intact. Patient did have increased pain with straight leg raise. Skin: Clean dry and intact with no rash, purpura, petechiae, vesicles or pustules. Backs/flank: No CVA tenderness, no midline spinal tenderness, no deformity. I had the patient sit up, pa (more content not included)... Normal [facility] Eosinophil percentageOrdered By: Jorge Kim on 12-30-2024 Eosinophils/100 WBC (Bld) 1.0 % 0-5 [facility] Erythrocyte Sed Rateon 12-30 SED RATE 1 mm/hr Normal 0-20 [facility] Comment on above: Performed By: #### L 100.0100, L101.9900, L501.6710, L500.2500 #### [facility] [address] [place], [address] Erythrocyte distribution wid th ratioOrdered By: Jorge Kim on 12-30-2024 Erythrocyte distribution width (RBC) [Ratio] 11.4 % Low 11.6-14.6 [facility] Erythrocyte distribution wid th standard deviationOrdered By: Jorge Kim on 12-30-2024 Erythrocyte distribution width (RBC) [Entitic vol] 38.9 fL 35.1-43.9 [facility] Erythrocyte sedimentation ra teOrdered By: Jorge Kim on 12-30-2024 ESR (Bld) [Velocity] 1 mm/h 0-20 [facility] Estimated glomerular filtrat ion rate (GFR) AmericanOrdered By: Jorge Kim on 12-30-2024 Estimated GFR (MDRD) Amer 98 mL/min >60 [facility] Comment on above: GFR Calc Estimation of creatinine victoriano aranceOrdered By: Jorge Kim on 12-30-2024 Estimated Creatinine Clearance Calc 83.94 ml/min [facility] Glomerular filtration rate ( GFR) estimationOrdered By: Jorge Kim on 12-30-2024 Estimated GFR (MDRD) Non-Af Amer 81 mL/min >60 [facility] Comment on above: Non- GFR Calc Glucose measurementOrdered B y: Jorge Kim on 12-30-2024 Glucose [Mass/Vol] 118 mg/dL High 74-106 [facility] Comment on above: Fasting Glucose resu lt from 100 to 125 mg/dL suggests IMPAIRED HOMEOSTASIS per A.D.A. criteria. Hematocrit Auto (Bld) [Volum e fraction]Ordered By: Jorge Kim on 12-30-2024 Hematocrit (Bld) [Volume fraction] 40.5 % 40-54 [facility] Hemoglobin measurementOrdere d By: Jorge Kim on 12-30-2024 Hemoglobin (Bld) [Mass/Vol] 14.4 g/dL 13.0-16.5 [facility] Immature granulocytes/100 WB C Auto (Bld)Ordered By: Jorge Kim on 12-30-2024 Immature granulocytes/100 WBC (Bld) 0.400 % 0.0-0.9 [facility] Comment on above: IG% - Immature Granu locytes (promyelocytes, myelocytes and metamyelocytes) > 1% indicates that a LEFT SHIFT is Present. Lymphocytes Auto (Unsp spec) [#/Vol]Ordered By: Jorge Kim on 12-30-2024 Lymphocytes (Bld) [#/Vol] 1.89 10*3/uL 0.83-4.5 1 [facility] Lymphocytes/100 WBC Auto (Un sp spec)Ordered By: Jorge Kim on 12-30-2024 Lymphocytes/100 WBC (Bld) 28.1 % 19-41 [facility] MCV (mean corpuscular volume ) determinationOrdered By: Jorge Kim on 12-30-2024 MCV (RBC) [Entitic vol] 93.5 fL 80-94 [facility] Mean corpuscular hemoglobin (MCH) determinationOrdered By: Jorge Kim on 12-30-2024 MCH (RBC) [Entitic mass] 33.3 pg High 27.0-32.0 [facility] Mean corpuscular hemoglobin concentration (MCHC) determinationOrdered By: Jorge Kim on 12-30-2024 MCHC (RBC) [Mass/Vol] 35.6 g/dL 32-36 [facility] Mean platelet volume determi nationOrdered By: Jorge Kim on 12-30-2024 Platelet mean volume (Bld) [Entitic vol] 10.4 fL 6.2-12.0 [facility] Monocyte percentageOrdered B y: Jorge Kim on 12-30-2024 Monocytes/100 WBC (Bld) 10.4 % High 0-10 [facility] Neutrophil percentageOrdered By: Jorge Kim on 12-30-2024 Neutrophils/100 WBC (Bld) 59.8 % 47-70 [facility] Nucleated red blood cell per centageOrdered By: Jorge Kim on 12-30-2024 Nucleated RBC/100 WBC (Bld) [Ratio] 0 % 0-5 [facility] Platelet countOrdered By: Jason Kim on 12-30-2024 Platelets (Bld) [#/Vol] 179 10*3/uL 150-450 [facility] Potassium measurementOrdered By: Jorge Kim on 12-30-2024 Potassium [Moles/Vol] 3.5 mmol/L 3.5-5.1 [facility] RBC Auto (Bld) [#/Vol]Ordere d By: Jorge Kim on 12-30-2024 RBC (Bld) [#/Vol] 4.33 10*6/uL Low 4.6-6.2 [facility] Serum anion gap measurementO rdered By: Jorge Kim on 12-30-2024 Anion gap [Moles/Vol] 5 mmol/L 5-15 [facility] Serum or plasma calcium rory urement (mass/volume)Ordered By: Jorge Kim on 12-30-2024 Calcium [Mass/Vol] 9.2 mg/dL 8.5-10.1 [facility] Serum or plasma creatinine m easurement (mass/volume)Ordered By: Jorge Kim on 12-30-2024 Creatinine [Mass/Vol] 0.98 mg/dL 0.70-1.30 [facility] Comment on above: The validity of the calculated GFR & GFRAA in patients over 70 years has not been determined. Clinical correlation is essential. Serum or plasma urea nitroge n measurement (mass/volume)Ordered By: Jorge Kim on 12-30-2024 Urea nitrogen [Mass/Vol] 16 mg/dL 7-18 [facility] Sodium levelOrdered By: Jorge Kim on 12-30-2024 Sodium [Moles/Vol] 137 mmol/L 136-145 [facility] White blood cell (WBC) count Ordered By: Jorge Kim on 12-30-2024 WBC (Bld) [#/Vol] 6.7 10*3/uL 4.4-11.0 [facility] Basophil percentageOrdered B y: Hussain Gilliland on 11-16-2023 Chloride [Moles/Vol] 101 mmol/L 98-[address] [facility] Glucose [Mass/Vol] 160 mg/dL 74-106 [facility] Comment on above: Fasting Glucose resu lt greater than or equal to 126 mg/dL suggests DIABETES MELLITUS per A.D.A. criteria. Potassium [Moles/Vol] 3.7 mmol/L 3.5-5.1 [facility] Sodium [Moles/Vol] 138 mmol/L 136-145 [facility] WBC (Bld) [#/Vol] 6.5 10*3/uL 4.4-11.0 [facility] Blood erythrocytes count (nu mber/volume)Ordered By: Hussain Gilliland on 11-16-2023 RBC (Bld) [#/Vol] 4.33 10*6/uL 4.6-6.2 [facility] Blood hemoglobin measurement (mass/volume)Ordered By: Hussain Gilliland on 11-16-2023 Hemoglobin (Bld) [Mass/Vol] 14.4 g/dL 13.0-16.5 [facility] Blood platelet mean volumeOr dered By: Hussain Gilliland on 11-16-2023 Platelet mean volume (Bld) [Entitic vol] 10.5 fL 6.2-12.0 [facility] Determination of erythrocyte mean corpuscular volume (MCV)Ordered By: Hussain Gilliland on 11-16-2023 MCV (RBC) [Entitic vol] 96.8 fL 80-94 [facility] Hematocrit Auto (Bld) [Volum e fraction]Ordered By: Hussain Gilliland on 11-16-2023 Hematocrit (Bld) [Volume fraction] 41.9 % 40-54 [facility] - Chemistry and C hemistry - challengeOrdered By: Hussain Gilliland on 11-16-2023 CO2 [Moles/Vol] 29.0 mmol/L 21.0-32.0 [facility] Urea nitrogen/Creatinine [Mass ratio] 15.7 mg/mg 10-20 [facility] - Hematology and Cell countsOrdered By: Hussain Gilliland on 11-16-2023 Erythrocyte distribution width (RBC) [Entitic vol] 39.6 fL 35.1-43.9 [facility] Erythrocyte distribution width (RBC) [Ratio] 11.0 % 11.6-14.6 [facility] MCH (RBC) [Entitic mass] 33.3 pg 27.0-32.0 [facility] MCHC Auto (RBC) [Mass/Vol]Or dered By: Hussain Gilliland on 11-16-2023 MCHC (RBC) [Mass/Vol] 34.4 g/dL 32-36 [facility] No Panel InformationOrdered By: Hussain Gilliland on 11-16-2023 Estimated GFR (MDRD) Amer 59 mL/min >60 [facility] Comment on above: GFR Calc Estimated GFR (MDRD) Non-Af Amer 48 mL/min >60 [facility] Comment on above: Non- GFR Calc Platelets bldOrdered By: Julio Gilliland on 11-16-2023 Platelets (Bld) [#/Vol] 160 10*3/uL 150-450 [facility] Serum or plasma calcium rory urement (mass/volume)Ordered By: Hussain Gilliland on 11-16-2023 Calcium [Mass/Vol] 9.2 mg/dL 8.5-10.1 [facility] Serum or plasma creatinine m easurement (mass/volume)Ordered By: Hussain Gilliland on 11-16-2023 Creatinine [Mass/Vol] 1.53 mg/dL 0.70-1.30 [facility] Comment on above: The validity of the calculated GFR & GFRAA in patients over 70 years has not been determined. Clinical correlation is essential. Serum or plasma urea nitroge n measurement (mass/volume)Ordered By: Hussain Gilliland on 11-16-2023 Urea nitrogen [Mass/Vol] 24 mg/dL 7-18 [facility] Thin prep Papanicolaou smear with manual screeningOrdered By: Hussain Gilliland on 11-16-2023 Thin prep Papanicolaou smear with manual screening 8 5-15 [facility] Basophil percentageOrdered B y: Hussain Gilliland on 11-02-2023 Basophil percentage < 1.0 mg/dL 0.70-1.30 [facility] No Panel InformationOrdered By: Hussain Gilliland on 11-02-2023 Bedside Estimated GFR (eGFR) > 60.0000 mL/min >60 [facility] Basophil percentageOrdered B y: Eron Moody on 09-22-2023 Bilirubin [Mass/Vol] 0.60 mg/dL 0.20-1.00 [facility] Comment on above: For patients on eltr ombopag therapy, use of Dimension [place] TBIL is not recommended. Chloride [Moles/Vol] 106 mmol/L 98-107 [facility] Cholesterol [Mass/Vol] 207 mg/dL <200 [facility] Comment on above: <200 mg/dL Desirable 200-240 mg/dL Borderline >240 mg/dL High Risk Glucose [Mass/Vol] 137 mg/dL 74-106 [facility] Comment on above: Fasting Glucose resu lt greater than or equal to 126 mg/dL suggests DIABETES MELLITUS per A.D.A. criteria. Potassium [Moles/Vol] 3.6 mmol/L 3.5-5.1 [facility] Protein [Mass/Vol] 7.0 g/dL 6.4-8.2 [facility] Sodium [Moles/Vol] 138 mmol/L 136-145 [facility] Triglyceride [Mass/Vol] 200 mg/dL <199 [facility] Comment on above: The drugs N-Acetylcy steine and Metamizole may falsely depress this assay.Serum Triglycerides Reference Interval Normal <150 mg/dL Borderline high 150 - 199 mg/dL High 200 - 499 mg/dL Very High > or = 500 mg/dL Laboratory - Chemistry and C hemistry - challengeOrdered By: Eron Moody on 09-22-2023 ALP [Catalytic activity/Vol] 87 U/L 45-117 [facility] ALT [Catalytic activity/Vol] 76 U/L 16-61 [facility] CO2 [Moles/Vol] 29.0 mmol/L 21.0-32.0 [facility] Cobalamin (Vitamin B12) [Mass/Vol] 1815 pg/mL 211-911 [facility] Globulin (S) [Mass/Vol] 3.5 g/dL 2.2-4.2 [facility] Urea nitrogen/Creatinine [Mass ratio] 21.6 mg/mg 10-20 [facility] No Panel InformationOrdered By: Eron Moody on 09-22-2023 Estimated GFR (MDRD) Amer 99 mL/min >60 [facility] Comment on above: GFR Calc Estimated GFR (MDRD) Non-Af Amer 82 mL/min >60 [facility] Comment on above: Non- GFR Calc Prostate Specific Antigen Screen 6.98 ng/mL 0.00-4.00 [facility] Comment on above: This test was perfor med using the TPSA assay method for [employer] chemistry system. Values obtained with differentassay methods cannot be used interchangably.When changing PSA assays in the course of monitoring apatient, additional sequential testing should be carriedout to confirm baseline values. Thyroid Stimulating Hormone (TSH) 1.37 uIU/mL 0.358-3.74 [facility] Serum or plasma albumin rory urement (mass/volume)Ordered By: Eron Moody on 09-22-2023 Albumin [Mass/Vol] 3.5 g/dL 3.2-5.0 [facility] Serum or plasma albumin/glob ulin mass ratioOrdered By: Eron Moody on 09-22-2023 Albumin/Globulin [Mass ratio] 1.0 {ratio} 0.9-2.4 [facility] Serum or plasma calcium rory urement (mass/volume)Ordered By: Eron Moody on 09-22-2023 Calcium [Mass/Vol] 9.1 mg/dL 8.5-10.1 [facility] Serum or plasma cholesterol in HDL measurement (mass/volume)Ordered By: Eron Moody on 09-22-2023 Cholesterol in HDL [Mass/Vol] 47 mg/dL >40 [facility] Comment on above: The drugs N-Acetylcy steine and Metamizole may falsely depress this assay. Reference Range HDL <40 mg/dL Low HDL Cholesterol HDL >or= 60 mg/dL High HDL Cholesterol Serum or plasma cholesterol in VLDL measurement (mass/volume)Ordered By: Eron Moody on 09-22-2023 Cholesterol in VLDL [Mass/Vol] 40 mg/dL 5-40 [facility] Serum or plasma creatinine m easurement (mass/volume)Ordered By: Eron Moody on 09-22-2023 Creatinine [Mass/Vol] 0.97 mg/dL 0.70-1.30 [facility] Comment on above: The validity of the calculated GFR & GFRAA in patients over 70 years has not been determined. Clinical correlation is essential. Serum or plasma low density lipoprotein (LDL) cholesterol measurement (mass/volume)Ordered By: Eron Moody on 09-22-2023 Cholesterol in LDL [Mass/Vol] 120 mg/dL 0-130 [facility] Serum or plasma urea nitroge n measurement (mass/volume)Ordered By: Eron Moody on 09-22-2023 Urea nitrogen [Mass/Vol] 21 mg/dL 7-18 [facility] Thin prep Papanicolaou smear with manual screeningOrdered By: Eron Moody on 09-22-2023 Thin prep Papanicolaou smear with manual screening 76 U/L 15-37 [facility] Thin prep Papanicolaou smear with manual screening 3 5-15 [facility] Basic metabolic 2000 panelon 02-25-2023 Anion gap [Moles/Vol] 10 mmol/L Normal 6-18 [facility] Comment on above: Performed By: #### 2 4321-2 #### [facility] [address] [place] [address] Calcium [Mass/Vol] 8.7 mg/dL Low 8.9-10.3 [facility] Comment on above: Performed By: #### 2 4321-2 #### [facility] [address] [place] [address] Chloride [Moles/Vol] 99 mmol/L Normal 98-107 [facility] Comment on above: Performed By: #### 2 4321-2 #### [facility] [address] [place] [address] CO2 [Moles/Vol] 28 mmol/L Normal 22-32 [facility] Comment on above: Performed By: #### 2 4321-2 #### [facility] [address] [place] [address] Creatinine [Mass/Vol] 0.79 mg/dL Normal 0.60-1.30 [facility] Comment on above: Performed By: #### 2 4321-2 #### [facility] [address] [place] [address] GFR/1.73 sq M.predicted among non-blacks MDRD (S/P/Bld) [Vol rate/Area] 98 mL/min/{1.73_m2} Normal >=60 Mo [facility] Comment on above: Result Comment: Effe ctive September 04, 2022, calculation based on the?Chronic Kidney Disease Epidemiology Collaboration (CKD-EPI) equation refit?without adjustment for race. Performed By: #### 2 4321-2 #### [facility] [address] [place] [address] Glucose [Mass/Vol] 151 mg/dL High 70-99 [facility] Comment on above: Performed By: #### 2 4321-2 #### [facility] [address] [place] [address] Potassium [Moles/Vol] 3.4 mmol/L Low 3.6-5.1 [facility] Comment on above: Performed By: #### 2 4321-2 #### [facility] [address] [place] [address] Sodium [Moles/Vol] 137 mmol/L Normal 136-145 [facility] Comment on above: Performed By: #### 2 4321-2 #### [facility] [address] [place] [address] Urea nitrogen [Mass/Vol] 14 mg/dL Normal 8-20 [facility] Comment on above: Performed By: #### 2 4321-2 #### [facility] [address] [place] [address] Urea nitrogen/Creatinine [Mass ratio] 17.7 mg/mg Normal 12.0-20.0 [facility] Comment on above: Performed By: #### 2 4321-2 #### [facility] [address] [place] [address] Anion gap [Moles/Vol] 10 mmol/L 6 - 18 [facility] Calcium [Mass/Vol] 8.7 mg/dL Low 8.9 - 10. 3 mg/dL [facility] Chloride [Moles/Vol] 99 mmol/L 98 - 10 7 mmol/L [facility] CO2 [Moles/Vol] 28 mmol/L 22 - 32 mmol/L [facility] Creatinine [Mass/Vol] 0.79 mg/dL 0.60 - 1.30 mg/dL [facility] GFR/1.73 sq M.predicted among non-blacks MDRD (S/P/Bld) [Vol rate/Area] 98 mL/min/{1.73_m2} - PINF [facility] Comment on above: Effective September 04, 2022, calculation based on the Chronic Kidney Disease Epidemiology Collaboration (CKD-EPI) equation refit without adjustment for race. Glucose [Mass/Vol] 151 mg/dL High 70 - 99 mg/dL [facility] Interpretation and review of laboratory results Abnormal [facility] Potassium [Moles/Vol] 3.4 mmol/L Low 3.6 - 5.1 mmol/L [facility] Sodium [Moles/Vol] 137 mmol/L 136 - 145 mmol/L [facility] Urea nitrogen [Mass/Vol] 14 mg/dL 8 - 20 mg/d L [facility] Urea nitrogen/Creatinine [Mass ratio] 17.7 mg/mg 12.0 - 20.0 [facility] Hemogram and platelets WO di fferential panel (Bld)on 02-25-2023 Basophils (Bld) [#/Vol] 0.02 10*3/uL Normal 0.00-0.20 [facility] Comment on above: Performed By: #### 2 4317-0 #### [facility] [address] [place] [address] Basophils/100 WBC (Bld) 0.2 % Normal 0.0-2.0 [facility] Comment on above: Performed By: #### 2 4317-0 #### [facility] [address] [place] [address] Eosinophils (Bld) [#/Vol] 0.00 10*3/uL Normal 0.00-0.7 0 [facility] Comment on above: Performed By: #### 2 4317-0 #### [facility] [address] [place] [address] Eosinophils/100 WBC (Bld) 0.0 % Normal 0.0-7.0 [facility] Comment on above: Performed By: #### 2 4317-0 #### [facility] [address] [place] [address] Erythrocyte distribution width (RBC) [Ratio] 11.1 % Normal 11.0-14.8 [facility] Comment on above: Performed By: #### 2 4317-0 #### [facility] [address] [place] [address] Hematocrit (Bld) [Volume fraction] 40.5 % Normal 39.0-49.0 [facility] Comment on above: Performed By: #### 2 4317-0 #### [facility] [address] [place] [address] Hemoglobin (Bld) [Mass/Vol] 14.4 g/dL Normal 13.5-17.5 [facility] Comment on above: Performed By: #### 2 4317-0 #### [facility] [address] [place] [address] Immature granulocytes (Bld) [#/Vol] 0.05 10*3/uL Normal 0.00-0.10 [facility] Comment on above: Performed By: #### 2 4317-0 #### [facility] [address] [place] [address] Immature granulocytes/100 WBC (Bld) 0.4 % Normal 0.0-1.2 [facility] Comment on above: Performed By: #### 2 4317-0 #### [facility] [address] [place] [address] Lymphocytes (Bld) [#/Vol] 1.09 10*3/uL Normal 1.00-4.8 0 [facility] Comment on above: Performed By: #### 2 4317-0 #### [facility] [address] [place] [address] Lymphocytes/100 WBC (Bld) 9.6 % Low 17.9-49.6 [facility] Comment on above: Performed By: #### 2 4317-0 #### [facility] [address] [place] [address] MCH 33.6 pcg Normal 27.0-34.0 [facility] Comment on above: Performed By: #### 2 4317-0 #### [facility] [address] [place] [address] MCHC (RBC) [Mass/Vol] 35.6 g/dL High 30.8-35.3 [facility] Comment on above: Performed By: #### 2 4317-0 #### [facility] [address] [place] [address] MCV (RBC) [Entitic vol] 94.4 fL Normal 80.0-97.0 [facility] Comment on above: Performed By: #### 2 4317-0 #### [facility] [address] [place] [address] Monocytes (Bld) [#/Vol] 1.17 10*3/uL High 0.00-0.90 [facility] Comment on above: Performed By: #### 2 4317-0 #### [facility] [address] [place] [address] Monocytes/100 WBC (Bld) 10.3 % Normal 0.0-12.0 [facility] Comment on above: Performed By: #### 2 4317-0 #### [facility] [address] [place] [address] Neutrophils Absolute 9.02 K/mcL High 1.80-7.70 Moun [facility] Comment on above: Performed By: #### 2 4317-0 #### [facility] [address] [place] [address], [place] [address] Neutrophils/100 WBC (Bld) 79.5 % High 38.1-75.5 [facility] Comment on above: Performed By: #### 2 4317-0 #### [facility] [address] [place] [address] Platelet mean volume (Bld) [Entitic vol] 10.4 fL Normal 6.2-12.1 [facility] Comment on above: Performed By: #### 2 4317-0 #### [facility] [address] [place] [address], [place] [address] Platelets (Bld) [#/Vol] 154 10*3/uL Normal 142-424 [facility] Comment on above: Performed By: #### 2 4317-0 #### [facility] [address] [place] [address], [place] [address] RBC (Bld) [#/Vol] 4.29 10*6/uL Low 4.30-5.70 [facility] Comment on above: Performed By: #### 2 4317-0 #### [facility] [address] [place] [address] WBC (Bld) [#/Vol] 11.4 10*3/uL High 4.6-10.2 [facility] Comment on above: Performed By: #### 2 4317-0 #### [facility] [address] [place] [address] Basophils (Bld) [#/Vol] 0.02 10*3/uL [facility] Basophils/100 WBC (Bld) 0.2 % 0.0 - 2.0 % [facility] Eosinophils (Bld) [#/Vol] 0.00 10*3/uL [facility] Eosinophils/100 WBC (Bld) 0.0 % 0.0 - 7.0 % [facility] Erythrocyte distribution width (RBC) [Ratio] 11.1 % 11.0 - 14.8 % [facility] Hematocrit (Bld) [Volume fraction] 40.5 % 39.0 - 49.0 % [facility] Hemoglobin (Bld) [Mass/Vol] 14.4 g/dL 13.5 - 17.5 g/dL [facility] Immature granulocytes (Bld) [#/Vol] 0.05 10*3/uL [facility] Immature granulocytes/100 WBC (Bld) 0.4 % 0.0 - 1.2 % [facility] Interpretation and review of laboratory results Abnormal [facility] Lymphocytes (Bld) [#/Vol] 1.09 10*3/uL [facility] Lymphocytes/100 WBC (Bld) 9.6 % Low 17.9 - 49. 6 % [facility] MCH (RBC) [Entitic mass] 33.6 pg [facility] MCHC (RBC) [Mass/Vol] 35.6 g/dL High 30.8 - 35.3 g/dL [facility] MCV (RBC) [Entitic vol] 94.4 fL [facility] Monocytes (Bld) [#/Vol] 1.17 10*3/uL High [facility] Monocytes/100 WBC (Bld) 10.3 % 0.0 - 12.0 % [facility] Neutrophils (Bld) [#/Vol] 9.02 10*3/uL High [facility] Neutrophils/100 WBC (Bld) 79.5 % High 38.1 - 75. 5 % [facility] Platelet mean volume (Bld) [Entitic vol] 10.4 fL [facility] Platelets (Bld) [#/Vol] 154 10*3/uL [facility] RBC (Bld) [#/Vol] 4.29 10*6/uL Low [facility] WBC (Bld) [#/Vol] 11.4 10*3/uL High [facility] Blood type and Indirect anti body screen panel (Bld)on 02-24-2023 ABO group Nom (Bld) O Normal [facility] Comment on above: Performed By: #### 3 4532-2 #### [facility] [address] [place] [address] Rh Type Positive Normal [facility] Comment on above: Performed By: #### 3 4532-2 #### [facility] [address] [place] [address] ABO group Nom (Bld) O [facility] Blood group antibody screen Ql Negative [facility] Rh Nom (Bld) Positive [facility] Glucose Auto test strip (Bld ) [Mass/Vol]on 02-24-2023 Glucose [Mass/Vol] 276 mg/dL High 70 - 99 mg/dL [facility] Interpretation and review of laboratory results Abnormal [facility] Glucose [Mass/Vol] 276 mg/dL High 70-99 [facility] Comment on above: Performed By: #### 2 340-8 #### [facility] [address] [place] [address] SARS-CoV-2 (COVID-19) RNA NA A+probe Ql (Resp)on 02-24-2023 Interpretation and review of laboratory results Normal [facility] SARS-CoV-2 (COVID-19) RdRp gene RAOUL+probe Ql (Resp) Not detected Not Detected [facility] SARS-CoV-2 RNA Resp Ql RAOUL+p robeon 02-24-2023 SARS-CoV-2 (COVID-19) RNA RAOUL+probe Ql (Resp) Not detected Normal Not Detected [facility] Comment on above: Performed By: #### 9 4500-6 #### [facility] [address] [place] [address] XR FLUORO UP TO 1 HOUR (STAT ISTICS)(NO REPORT)on 02-24-2023 XR FLUORO UP TO 1 HOUR (STATISTICS)(NO REPORT) This order has been auto-finalized and does not contain a result. Normal [facility] XR Fluoro Up To 1 Hour (Stat istics)(No Report)on 02-24-2023 This order has been auto-finalized and does not contain a result. RIS PACS/VR Basic metabolic 2000 panelon 02-03-2023 Anion gap [Moles/Vol] 16 mmol/L Normal 6-18 [facility] Comment on above: Performed By: #### 2 4321-2 #### [facility] [address] [place] [address]238 Calcium [Mass/Vol] 9.6 mg/dL Normal 8.9-10.3 [facility] Comment on above: Performed By: #### 2 4321-2 #### [facility] [address] [place] [address] Chloride [Moles/Vol] 97 mmol/L Low 98-107 Moun [facility] Comment on above: Performed By: #### 2 4321-2 #### [facility] [address] [place] [address] CO2 [Moles/Vol] 23 mmol/L Normal 22-32 [facility] Comment on above: Performed By: #### 2 4321-2 #### [facility] [address] [place] [address] Creatinine [Mass/Vol] 0.77 mg/dL Normal 0.60-1.30 [facility] Comment on above: Performed By: #### 2 4321-2 #### [facility] [address] [place] [address] GFR/1.73 sq M.predicted among non-blacks MDRD (S/P/Bld) [Vol rate/Area] 99 mL/min/{1.73_m2} Normal >=60 Mo [facility] Comment on above: Result Comment: Effnatalia ctive September 04, 2022, calculation based on the?Chronic Kidney Disease Epidemiology Collaboration (CKD-EPI) equation refit?without adjustment for race. Performed By: #### 2 4321-2 #### [facility] [address] [place] [address] Glucose [Mass/Vol] 137 mg/dL High 70-99 [facility] Comment on above: Performed By: #### 2 4321-2 #### [facility] [address] [place] [address] Potassium [Moles/Vol] 3.7 mmol/L Normal 3.6-5.1 [facility] Comment on above: Performed By: #### 2 4321-2 #### [facility] [address] [place] [address] Sodium [Moles/Vol] 136 mmol/L Normal 136-145 [facility] Comment on above: Performed By: #### 2 4321-2 #### [facility] [address] [place] [address] Urea nitrogen [Mass/Vol] 15 mg/dL Normal 8-20 [facility] Comment on above: Performed By: #### 2 4321-2 #### [facility] [address] [place] [address] Urea nitrogen/Creatinine [Mass ratio] 19.5 mg/mg Normal 12.0-20.0 [facility] Comment on above: Performed By: #### 2 4321-2 #### [facility] [address] [place] [address] Blood type and Indirect anti body screen panel (Bld)on 02-03-2023 ABO group Nom (Bld) O Normal [facility] Comment on above: Performed By: #### 3 4532-2 #### [facility] [address] [place] [address] Rh Type Positive Normal [facility] Comment on above: Performed By: #### 3 4532-2 #### [facility] [address] [place] [address] Hemogram and platelets WO di fferential panel (Bld)on 02-03-2023 Basophils (Bld) [#/Vol] 0.07 10*3/uL Normal 0.00-0.20 [facility] Comment on above: Performed By: #### 2 4317-0 #### [facility] [address] [place] [address]85 Basophils/100 WBC (Bld) 1.1 % Normal 0.0-2.0 [facility] Comment on above: Performed By: #### 2 4317-0 #### [facility] [address] [place] [address] Eosinophils (Bld) [#/Vol] 0.09 10*3/uL Normal 0.00-0.7 0 [facility] Comment on above: Performed By: #### 2 4317-0 #### [facility] [address] [place] [address]37 Eosinophils/100 WBC (Bld) 1.4 % Normal 0.0-7.0 [facility] Comment on above: Performed By: #### 2 4317-0 #### [facility] [address] [place] [address]43 Erythrocyte distribution width (RBC) [Ratio] 11.2 % Normal 11.0-14.8 [facility] Comment on above: Performed By: #### 2 4317-0 #### [facility] [address] [place] [address] 24219 Hematocrit (Bld) [Volume fraction] 45.2 % Normal 39.0-49.0 [facility] Comment on above: Performed By: #### 2 4317-0 #### [facility] [address] [place] [address]208 Hemoglobin (Bld) [Mass/Vol] 15.9 g/dL Normal 13.5-17.5 [facility] Comment on above: Performed By: #### 2 4317-0 #### [facility] [address] [place] [address] Immature granulocytes (Bld) [#/Vol] 0.02 10*3/uL Normal 0.00-0.10 [facility] Comment on above: Performed By: #### 2 4317-0 #### [facility] [address] [place] [address]356 Immature granulocytes/100 WBC (Bld) 0.3 % Normal 0.0-1.2 [facility] Comment on above: Performed By: #### 2 4317-0 #### [facility] [address] [place] [address] Lymphocytes (Bld) [#/Vol] 1.59 10*3/uL Normal 1.00-4.8 0 [facility] Comment on above: Performed By: #### 2 4317-0 #### [facility] [address] [place] [address] 51026 Lymphocytes/100 WBC (Bld) 25.4 % Normal 17.9-49.6 [facility] Comment on above: Performed By: #### 2 4317-0 #### [facility] [address] [place] [address] 26551 MCH 33.2 pcg Normal 27.0-34.0 [facility] Comment on above: Performed By: #### 2 4317-0 #### [facility] [address] [place] [address] MCHC (RBC) [Mass/Vol] 35.2 g/dL Normal 30.8-35.3 [facility] Comment on above: Performed By: #### 2 4317-0 #### [facility] [address] [place] [address] MCV (RBC) [Entitic vol] 94.4 fL Normal 80.0-97.0 M [facility] Comment on above: Performed By: #### 2 4317-0 #### [facility] [address] [place] [address]10 Monocytes (Bld) [#/Vol] 0.70 10*3/uL Normal 0.00-0.90 [facility] Comment on above: Performed By: #### 2 4317-0 #### [facility] [address] [place] [address] 90206 Monocytes/100 WBC (Bld) 11.2 % Normal 0.0-12.0 M [facility] Comment on above: Performed By: #### 2 4317-0 #### [facility] [address] [place] [address] 6[address] Neutrophils Absolute 3.78 K/mcL Normal 1.80-7.70 Moun [facility] Comment on above: Performed By: #### 2 4317-0 #### [facility] [address] [place] [address]356 Neutrophils/100 WBC (Bld) 60.6 % Normal 38.1-75.5 [facility] Comment on above: Performed By: #### 2 4317-0 #### [facility] [address] [place] [address]27 Platelet mean volume (Bld) [Entitic vol] 10.4 fL Normal 6.2-12.1 [facility] Comment on above: Performed By: #### 2 4317-0 #### [facility] [address] [place] [address] Platelets (Bld) [#/Vol] 170 10*3/uL Normal 142-424 [facility] Comment on above: Performed By: #### 2 4317-0 #### [facility] [address] [place] [address] 15424 RBC (Bld) [#/Vol] 4.79 10*6/uL Normal 4.30-5.70 [facility] Comment on above: Performed By: #### 2 4317-0 #### [facility] [address] [place] [address] 71424 WBC (Bld) [#/Vol] 6.3 10*3/uL Normal 4.6-10.2 [facility] Comment on above: Performed By: #### 2 4317-0 #### [facility] [address] [place] [address] Vital Signs Date Time Vital Sign Value Performing Clinician Andrew chamberlain 12-30-2024 18:00-0500 Body temperature 98.7 [degF] Dr. Bree Moody MD Work Phone: [facility] 12-30-2024 18:00-0500 Diastolic blood pressure 69 mm[Hg] Dr. Bree Moody MD Work Phone: [facility] 12-30-2024 18:00-0500 Heart rate 88 /min Dr. Bree Moody MD Work Phone: [facility] 12-30-2024 18:00-0500 Respiratory rate 16 /min Dr. Bree Moody MD Work Phone: [facility] 12-30-2024 18:00-0500 SaO2% (BldA) [Mass fraction] 98 % Dr. Bree Moody MD Work Phone: [facility] 12-30-2024 18:00-0500 Systolic blood pressure 139 mm[Hg] Dr. Bree Moody MD Work Phone: [facility] 12-30-2024 16:13-0500 Body mass index (BMI) [Ratio] 30.4 kg/m2 Dr. Bree Moody MD Work Phone: [facility] 12-30-2024 16:13-0500 Body weight 96.[address] Bree Moody MD Work Phone: [facility] 12-30-2024 14:29-0500 Body height 177.[address] Bree Moody MD Work Phone: [facility] 12-15-2023 14:32-0500 Body temperature 100.2 [degF] Dr. Eron Moody Work Phone: [facility] 12-15-2023 14:32-0500 Diastolic blood pressure 77 mm[Hg] Dr. Eron Moody Work Phone: [facility] 12-15-2023 14:32-0500 Heart rate 86 /min Dr. Eron Moody Work Phone: [facility] 12-15-2023 14:32-0500 Respiratory rate 16 /min Dr. Eron Moody Work Phone: [facility] 12-15-2023 14:32-0500 SaO2% (BldA) [Mass fraction] 95 % Dr. Eron Moody Work Phone: [facility] 12-15-2023 14:32-0500 Systolic blood pressure 146 mm[Hg] Dr. Eron Moody Work Phone: [facility] 12-15-2023 12:35-0500 Body height 177.[address] Eron Moody Work Phone: [facility] 12-15-2023 12:35-0500 Body mass index (BMI) [Ratio] 31.6 kg/m2 Dr. Eron Moody Work Phone: [facility] 12-15-2023 12:35-0500 Body weight 100.[address] Eron Moody Work Phone: [facility] 02-25-2023 07:40-0400 SaO2% (BldA) [Mass fraction] 92 % Chan Molina MD Work Phone: [facility] [employer] 02-25-2023 07:38-0400 Body temperature 96.8 [degF] Chan Molina MD Work Phone: [facility] [employer] 02-25-2023 07:38-0400 Diastolic blood pressure 91 mm[Hg] Chan Molina MD Work Phone: [employer] 02-25-2023 07:38-0400 Heart rate 62 /min Chan Molina MD Work Phone: [employer] 02-25-2023 07:38-0400 Respiratory rate 16 /min Chan Molina MD Work Phone: [employer] 02-25-2023 07:38-0400 Systolic blood pressure 158 mm[Hg] Chan Molina MD Work Phone: [employer] 02-24-2023 08:49-0400 Body height 177.8 cm Chan Molina MD Work Phone: [employer] 02-24-2023 08:49-0400 Body mass index (BMI) [Ratio] 31.28 kg/m2 Chan Molina MD Work Phone: [employer] 02-24-2023 08:49-0400 Body weight 98.9 kg Chan Molina MD Work Phone: [employer] Encounters Encounter Date Encounter Type Care Provider Facility Start: 08-26-2025 End: 08-26-2025 ambulatory Hussain Gilliland Facility:[facility] Start: 02-28-2025 End: 02-28-[address] Bree Moody MD Work Phone: [facility] Work Phone: Start: 02-28-2025 End: 02-28-2025 Patient encounter procedure Helen Jackson -Laboratory Work Phone: Start: 02-28-2025 End: 02-28-2025 ambulatory Bree Moody Facility:[facility] Start: 01-22-2025 End: 01-22-[address] Bree Moody MD Work Phone: [facility] Work Phone: Start: 01-22-2025 End: 01-22-[address] [facility]: 01-22-2025 End: 01-22-2025 ambulatory Bree Moody Facility:[facility] Start: 12-30-2024 End: 12-30-2024 Emergency department patient visit Dr. Job Vasquez -Emergency Department Work Phone: Start: 12-15-2023 End: 12-15-2023 Admission to same day surgery center Dr. Eron Moody Work Phone: [facility] Start: 12-15-2023 End: 12-15-[address] Eron Moody Work Phone: [facility] Work Phone: Start: 11-16-2023 End: 11-16-2023 Non-patient / Non-visit Dr. Eron Moody Work Phone: [facility] Work Phone: Start: 11-16-2023 End: 11-16-[address] Eron Moody Work Phone: [facility] Work Phone: Start: 11-16-2023 End: 11-16-[address] Eron Moody Work Phone: [facility]-Pulmonary Services/Neurology Work Phone: Start: 11-02-2023 End: 11-02-2023 ambulatory [facility] Work Phone: Start: 11-02-2023 End: 11-02-2023 Patient encounter procedure [facility] Work Phone: Start: 09-22-2023 End: 09-22-[address] Eron Moody Work Phone: [facility] Work Phone: Start: 09-22-2023 End: 09-22-[address] Eron Moody Work Phone: [facility] Start: 06-28-2023 Non-patient / Non-visit Dr. Eron Moody Work Phone: [facility] Start: 06-28-2023 End: 06-28-[address] Eron Moody Work Phone: [facility] Work Phone: Start: 06-28-2023 End: 06-28-[address] Eron Moody Work Phone: [facility]-Pulmonary Services/Neurology Work Phone: Start: 02-24-2023 End: 02-25-2023 Evaluation and management of inpatient [facility] Start: 02-24-2023 End: 02-25-2023 Evaluation and management of inpatient Chan Molina MD Work Phone: [facility] Start: 02-24-2023 ambulatory CHAN SNCAROLINEK [facility] Start: 02-24-2023 End: 02-24-2023 Evaluation and management of inpatient Xavier C-Arm 1 [facility] Start: 02-24-2023 End: 02-24-2023 Subsequent hospital visit by physician Xavier 1 [facility] Comment on above: Pain Start: 12-29-2022 End: 12-29-2022 ambulatory [facility] Work Phone: Start: 12-29-2022 End: 12-29-2022 Patient encounter procedure [facility]-Radiology, [place] Procedures Date Procedure Procedure Detail Performing Clinician Start: 12-15-2023 Ultrasound Guided Prostater Biospy (Not Applicable) Dr. Eron Moody Work Phone: Start: 11-02-2023 MRI of pelvis with contrast Start: 02-25-2023 Basic metabolic pane l calcium total Ponce Garcia MD Work Phone: Start: 02-25-2023 CBC W Auto Different ial panel - Blood Ponce Garcia MD Work Phone: Start: 02-24-2023 PULSE OXIMETRY, CONTINUOUS Ponce Garcia MD Work Phone: Start: 02-24-2023 XR FLUORO UP TO 1 HO UR (STATISTICS)(NO REPORT) Chan Molina MD Work Phone: Start: 02-24-2023 Antibody screen CHAN SIMENTAL Comment on above: Performed By: #### 3 [id number] #### [facility] [address] [place] [address] Start: 02-24-2023 POCT GLUCOSE BLOOD Micha Molina MD Work Phone: Start: 02-24-2023 Antibody screen rbc each serum technique Chan Molina MD Work Phone: Start: 02-24-2023 Sars-cov-2 detection by dna/rna Chan Molina MD Work Phone: Start: 02-03-2023 Antibody screen CHAN SIMENTAL Comment on above: Performed By: #### 3 [id number] #### [facility] [address] [place] [address] Start: 12-29-2022 X-ray of both feet Start: 12-29-2022 X-ray of lumbosacral spine Plan of Treatment Date Care Activity Detail Author Start: 04-15-2030 DTaP,Tdap,and Td Vaccines (2 - Td or Tdap) DTaP,Tdap,and Td Vaccines (2 - Td or Tdap) [facility] Start: 12-30-2024 [facility] Start: 02-26-2024 Hypertension/CHF/CAD Annual BMP Blood Test Hypertension/CHF/CAD Annual BMP Blood Test [facility] Start: 02-25-2024 Falls Risk Assessment Falls Risk Assessment [facility] Start: 12-15-2023 Patient discharge [facility] Start: 12-15-2023 End: 12-15-2023 [facility] Start: 12-15-2023 Ambulation without limitation [facility] Start: 12-15-2023 Medical regimen orders management [facility] Start: 12-15-2023 Medication education [facility] Start: 12-15-2023 Taking patient vital signs [facility] Start: 12-15-2023 Biopsy of prostate [facility] Start: 12-15-2023 Biopsy of prostate with ultrasound guidance Prostate Biopsy [facility] Start: 07-28-2023 Influenza vaccination Influenza Vaccine (Season Ended) [facility] Start: 01-27-2023 Adolescent depression screening assessment Depression Screening [facility] Start: 01-27-2023 Hepatitis C screening Hepatitis C Screening [facility] Start: 01-27-2023 Lipid panel Cholesterol Screening (Lipid Panel) [facility] Start: 01-27-2023 Medicare Annual Wellness Visit Medicare Annual Wellness Visit [facility] Start: 01-27-2023 Screening for malignant neoplasm of colon Colorectal Cancer Screening: Colonoscopy [facility] Start: 01-27-2023 Social Influencers of Health Screening Social Influencers of Health Screening [facility] Start: 04-21-2022 Pneumococcal Vaccine: 65+ Years (2 - PCV) Pneumococcal Vaccine: 65+ Years (2 - PCV) [facility] Start: 2006 Zoster Vaccines (1 of 2) Zoster Vaccines (1 of 2) [facility] Start: 1955 COVID-19 Vaccine (#1) COVID-19 Vaccine (#1) [facility] Patient Education ED Back Pain ( Acute or Chronic) ED Sciatica [facility] Work Phone: Patient referral Tessy [facility] Work Phone: Payers Date Payer Category Payer Self-pay [id number] 2022 Unknown [id number] 2022 Unknown MEDICAL M[employer] M EDICAL MUTUAL SUPERMED [id number] 2022-Present [address] [place] [address] [id number] 2021 Medicare [id number] 2021 Medicare MEDICARE MEDICAR E PART A & B [id number] 2021-Present [address] [place] [address] Medicare [id number] 1955 Unknown [id number] 1955 Unknown [id number] Private Health Insurance [facility] [id number] Unknown [id number] 62 Unknown [id number] 62 Unknown [id number] 62 Unknown [id number] 62 Social History Date Type Detail Facility Start: 10-18-2021 End: 12-07-2023 Tobacco smoking status NHIS Unknown if ever smoked [facility] Start: 09-18-2019 Chew [facility] Start: 1955 Sex Assigned At Male [facility] Start: 02-21-2023 End: 12-30-2024 Tobacco smoking status NHIS Never smoked tobacco [facility] Start: 02-21-2023 Tobacco use and exposure User of smokeless tobacco [facility] History of tobacco use Chews Tobacco [facility] Start: 02-24-2023 Alcohol intake Ex-drinker (finding) [facility] Start: 02-24-2023 Alcohol intake [facility] Start: 1955 Sex Assigned At Not on file T [facility] Start: 02-14-2023 End: 02-24-2023 Exposure to SARS-CoV-2 (event) Not sure [facility] Start: 02-05-2025 End: 03-05-2025 Sex Male (finding) [facility] Medical Equipment Procedure Code Equipment Code Equipment Origin al Text Equipment Identifier Dates Pre Bent Deandre 5.5x65mm - Sn/A - [id number] Start: 02-24-2023 Goals Date Patient Goal Desired Activity /State Mental Status Date Assessment Result Facility 12-15-2023 Cognitive function Voice/Name [facility] Work Phone: Clinical Notes 02-24-2023 to 12-15-2023 Yaima Mendoza RN - 02/25/2023 12:10 PM Rebel Giron RN - 02/25/2023 11:37 AM Nico Erazo PTA - 02/25/2023 7:40 AM Anna Raygoza MD - 02/25/2023 6:02 AM EDT Note Date & Type Note Facility 12-15-2023 Procedure note [facility] 06-28-2023 Procedure note [facility] 02-25-2023 History of Present illness Narrative All discharge criteria for discharge to home met, medically & surgically. Discharge education and instructions presented by ishmael Valencia RN. Verbalized understanding. Questions answered, concern denied. Plasma Flow activated For trip home to [place], to car via wheelchair Dr. Molina rounded [...] folder and placed at the nurses station [facility] Physical Therapy Treatment PT Discharge Recommendations: Home [...] agreeable to Pt session and cleared by CHRISTINA Erwin Objective Pt completed ambulation, transfers and [...] Assessment Medical Staff Made Aware Yes Comments Christina Erwin-PT goals met Plan PT - OK to Discharge Yes Goals/Education Encounter Problems Encounter Problems (Active) There are no active problems. Encounter Problems (Resolved) Template: Physical Therapy Problem: PT Short Term Goals Dates: Start: 02/24/23 Resolved: 02/25/23 Goal: Pt will perform bed mobility via log roll with CGA (Resolved) Dates: Start: 02/24/23 Expected End: 02/25/23 Met: 02/25/23 Outcomes Date/Time User Outcome 02/25/23 08Sangeetha Erazo PTA Completed Goal: Pt will perform transfers with SBA/FWW (Resolved) Dates: Start: 02/24/23 Expected End: 02/25/23 Met: 02/25/23 Outcomes Date/Time User Outcome 02/25/23 08Sangeetha Erazo PTA Completed Goal: Pt will ambulate x150 ft with SBA/FWW (Resolved) Dates: Start: 02/24/23 Expected End: 02/25/23 Met: 02/25/23 Outcomes Date/Time User Outcome 02/25/23 08Sangeetha Erazo PTA Completed Goal: Pt will ascend/descend platform step with CGA/FWW (Resolved) Dates: Start: 02/24/23 Expected End: 02/25/23 Met: 02/25/23 Outcomes Date/Time User Outcome 02/25/23 08Sangeetha Erazo PTA Completed Goal: Pt will indicate understanding of back precautions and LSO wear/care schedule (Resolved) Dates: Start: 02/24/23 Expected End: 02/25/23 Met: 02/25/23 Outcomes Date/Time User Outcome 02/25/23 08Sangeetha Erazo PTA Completed Education Documentation Precautions, taught [...] F) (Temporal) Resp 16 Ht 1.778 m (70") Wt 98.9 kg (218 lb 0.6 oz) [...] discharge prescriptions-pt will call to confirm a machine pecan picker time prior to discharge. Pharmacy confirmed. Discharge instructions discussed and voiced understanding, denies questions. [facility] Physical Therapy Evaluation PT Discharge Recommendations: Home [...] Toilet Handicapped height Prior Function Level of [place] Independent with mobility and functional transfers Prior Function Comments Pt was still working prior to his R leg going numb and has his own PutPlace Sensation Light Touch Partial deficits in the [...] diaphoretic) Medical Staff Made Aware Yes Comments CHRISTINA Petersen notified of pt performance and pt [...] Outcomes Date/Time User Outcome 02/24/23 1630 Swati Beatriz, PT Progressing Goal: Pt will ambulate x150 ft with SBA/FWW Dates: Start: 02/24/23 Expected End: 02/25/23 Outcomes Date/Time User Outcome 02/24/23 1630 Swati Henderson PT Progressing Goal: Pt will ascend/descend platform step with CGA/FWW Dates: Start: 02/24/23 Expected End: 02/25/23 Outcomes Date/Time User Outcome 02/24/23 1630 Swati Henderson PT Progressing Goal: Pt will indicate understanding of back precautions and LSO wear/care schedule Dates: Start: 02/24/23 Expected End: 02/25/23 Outcomes Date/Time User Outcome 02/24/23 1630 Swati Henderson PT Progressing Encounter Problems (Resolved) There are [...] General IVF -2300 mL noted U/O- [address] 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 documented in this encounter [facility] 02-25-2023 Hospital course Narrative Discharge Final Diagnosis: [...] Your Medications These medications were sent to [facility]/pharmacy #[id number] - [place], [place] - [address] [facility] [facility] [address] [facility] [address] [facility] [facility] [address] oxyCODONE 5 mg immediate release tablet Patient [...] your pharmacy. Please call to confirm a machine pecan picker time prior to discharge. -Per Dr. Molina patient may resume the routine 81 mg Aspirin on 4-2-23 Pre-Surgery Instructions: Medication Instructions ASPIRIN ORAL Other (see Additional Instructions)LAST DOSE 02/16 lisinopril-hydroCHLOROthiazide (PRINZIDE,ZESTORETIC) 20-25 mg per tablet Other (see Additional Instructions)LAST DOSE 02/23 NON FORMULARY Other (see Additional Instructions)LAST DOSE 02/16 MEDS PER [facility] RE[facility] Additional Instructions: Instructions to prepare for [...] prior to your surgery. Check in at law office receptionist desk [address] [place] [address]. If Outpatient, these additional instructions apply: An adult must stay with you the whole time you are here and drive you home. An adult must stay with you at home for 24 hours due to Anesthesia. If you have VICKY, you are required to stay 3 hours after your surgery before we can discharge you. documented in this encounter [facility] 02-24-2023 Procedure note OPERATIVE REPORT PATIENT NAME: Talita Appiah DATE OF : 1955 [facility]#: [id number] SURGEON: hCan Molina MD DATE OF SERVICE: 02/24/2023 SENIOR SUSTAINABILITY CONSULTANT: JASON Brito DATE OF SURGERY: 02/24/2023 PREOPERATIVE DIAGNOSIS: Lumbar stenosis with neurogenic claudication L4-L5, L5-S1, (M48.062) Lumbar spondylolisthesis with instability L5-S1, (M43.16) POSTOPERATIVE DIAGNOSIS: Lumbar stenosis with neurogenic claudication L4-L5, L5-S1, (M48.062) Lumbar spondylolisthesis with instability L5-S1, (M43.16) FINDINGS: stenosis in the central canal, neuro foramen, L4-L5, L5-S1, PROCEDURE(S): Right and Left Posterolateral fusion L4-L5, L5-S1, (CPT-31841 + CPT-21519) Laminectomy with partial facetectomy and foraminotomy L4-L5, L5-S1, (CPT-58202 + CPT-06185) Posterior spinal instrumentation L4-L5, L5-S1, (CPT-57195) Insertion of morcelized local bone graft for spinal fusion (CPT-33668) ANETHESIA: General Endotracheal Tube CLINICAL INDICATIONS: Back [...] speed reginaldo was utilized to make a captain airline pilot hole at the junction of the pars, [...] position of the hardware. The appropriate size deandre was then chosen and affixed to the [...] of the closure. Complications: None EBL: 200ML [facility] 02-24-2023 Procedure note OPERATIVE REPORT PATIENT NAME: Talita Appiah DATE OF : 1955 [facility]#: [id number] SURGEON: Chan Molina MD DATE OF SERVICE: 02/24/2023 SENIOR SUSTAINABILITY CONSULTANT: JASON Brito DATE OF SURGERY: 02/24/2023 PREOPERATIVE DIAGNOSIS: Lumbar stenosis with neurogenic claudication L4-L5, L5-S1, (M48.062) Lumbar spondylolisthesis with instability L5-S1, (M43.16) POSTOPERATIVE DIAGNOSIS: Lumbar stenosis with neurogenic claudication L4-L5, L5-S1, (M48.062) Lumbar spondylolisthesis with instability L5-S1, (M43.16) FINDINGS: stenosis in the central canal, neuro foramen, L4-L5, L5-S1, PROCEDURE(S): Right and Left Posterolateral fusion L4-L5, L5-S1, (CPT-28474 + CPT-80392) Laminectomy with partial facetectomy and foraminotomy L4-L5, L5-S1, (CPT-75579 + CPT-76374) Posterior spinal instrumentation L4-L5, L5-S1, (CPT-63950) Insertion of morcelized local bone graft for spinal fusion (CPT-10869) ANETHESIA: General Endotracheal Tube CLINICAL INDICATIONS: Back [...] speed reginaldo was utilized to make a captain airline pilot hole at the junction of the pars, [...] position of the hardware. The appropriate size deandre was then chosen and affixed to the [...] new orders received. documented in this encounter [facility] 02-24-2023 History and physical note History and Physical Update ( H&P completed within the previous thirty days ) I personally reviewed the History and Physical, interviewed and examined the patient prior to surgery. No changes have occurred in the patient's condition since the History and Physical was completed. [facility] 02-24-2023 History and physical note History and Physical Update ( H&P completed within the previous thirty days ) I personally reviewed the History and Physical, interviewed and examined the patient prior to surgery. No changes have occurred in the patient's condition since the History and Physical was completed. documented in this encounter [facility] 02-24-[address] Lopez aware of blood sugar of 276. No new orders received. [facility] Discharge summary Note Date/Time December 15, 2023 1:[address] [place] [address] Medical Records Department [address] [place] [address] Instructions for Home/Discharge Instructions 12/15/23 1330 MR#: [id number] Acct: [id number] Name: TALITA APPIAH Rep #:[id number] : 1955 68 From: Hussain Gilliland MD PCP: Dr. Eron Moody MD Status: [facility] Discharge Instructions Procedure Urology Diet Discharge Diet: No restrictions Activity Discharge Activity: Return to Normal Activity and May Not Drive (while taking narcotic pain medications.) Dressing / Incision Call your doctor if you observe: Fever of 101 or Higher Follow Up Care Please Follow Up With: Hussain Gilliland MD When: Call [phone] for an appointment Test Results: Test results from this visit will be discussed in further detail at your follow-up appointment, if applicable. Discharge Plan Admission Attending Provider: Hussain Gilliland Primary Care Provider: Eron Moody Discharge Orders/Prescriptions Prescriptions: No Action Ultra CoQ10 75 mg capsule 75 mg PO DAILY Hold Instructions: HASNT TAKEN FOR 2 WKS lisinopril-hydrochlorothiazide 1 EACH tablet 1 tab PO DAILY Patient Comments: TAKE 1 TABLET BY MOUTH EVERY DAY Referrals / Follow Up: Eron Moody MD [Primary Care Provider] - Disposition Disposition (needs filled in before D/C Order can be placed): Home, Self Care 12/15/23 1331<Electronically signed by Hussain Gilliland MD>Hussain Gilliland MD CC: Dr. Eron Moody MD ~ Signed [facility] Work Phone: Evaluation noteNo assessment information available [facility] Work Phone: Evaluation note* Diagnosis Pain Generalized pain [facility] Fusion of lumbar spine- Primary [facility] Author Hussain Gilliland [facility] December 15, 2023 1:30pm Note Date/Time December 15, 2023 1 :30pm [facility] Medical Records Department [address] [place] [address] History & Physical Exam 12/15/23 1330 MR#: [id number] Acct: [id number] Name: TALITA APPIAH Rep #:[id number] : 1955 68 From: Hussain Gilliland MD PCP: Dr. Eron Moody MD Status: [facility] Location: [place] [address] HPI - General General Date of Admission: 12/15/23 Chief Complaint: Elevated PSA HPI Narrative TALITA APPIAH, is a 68 M who presents for outpatient ultrasound-guided prostate biopsy, we attempted to do the biopsy in the office but the patient could not tolerate the probe. [facility] Medical History (Updated 12/07/23 @ 11:22 by Cyndie Lim) Alcohol use Cancer History of diverticulitis HTN (hypertension) Injury of back Non-smoker Prostate disease Rash Wears glasses Home Medications lisinopril 20 mg-hydrochlorothiazide 25 mg tablet 1 tab PO DAILY 09/18/19 [History Last Taken 12/15/23] coenzyme Q10 75 mg capsule (Ultra CoQ10) 75 mg PO DAILY 02/04/20 [History Last Taken Unknown] Allergy/AdvReac Type Severity Reaction Status Date / Time No Known Allergies Allergy Verified 12/15/23 12:34 Family History Brother Heart disease Surgical History History of bilateral cataract extraction History of spinal surgery s/p pilonidal cystectomy Status post laparoscopic cholecystectomy Social History (Updated 02/05/20 @ 12:[address] Horace Luu MD) Smoking Status: Never smoker alcohol intake: current Vital Signs Vital Signs Vital Signs: 12/15/23 12:35 12/15/23 12:35 Temperature 98.3 F Temperature Source Temporal Pulse Rate 86 Respiratory Rate 16 Respiratory Pattern Normal Blood Pressure 155/81 H Blood Pressure Mean 105 Blood Pressure Source Monitor Blood Pressure Position Semi-Fowlers Blood Pressure Location Right Arm Pulse Ox 96 Oxygen Delivery Method Room Air Weight Weight: 100.2 kg Body Mass Index (BMI) 31.6 12/15/23 1330 <Electronically signed by Hussain Gilliland MD> Cosigner Signature (if applicable): CC: Dr. Eron Moody MD; Dr. Hussain Gilliland MD~ Signed [facility] Work Phone: Hospital Discharge instructions* Attachments The following attachments cannot be sent through Care Everywhere. * Fall Prevention (Georgian) * Incentive Spirometer: General Info (Georgian) * DVT (Deep Vein Thrombosis): Prevention: General Info (Georgian) * Pain Medication Precautions (Georgian) * Constipation (Georgian) documented in [facility] HealthReason for referral (narrative)No reason for referral information availableWPremier Health Work Phone: Reason for visit Narrative* Auth/Cert Specialty Diagnoses / Procedures Referred By Contac t Referred To Contact Diagnoses Spinal stenosis, lumbar region with neurogenic claudication M48.062 Procedures NM REYNOLDS FACETECTOMY & FORAMINOTOMY SINGLE VERTEBRAL SEGMENT LUMBAR NM REYNOLDS FACETECTOMY & FORAMINOTOMY SGL VERT SEGM EA ADDL VERT C/TH LUMB NM ARTHRODESIS POST/POSTEROLATERAL TECH SGL INTERSPACE LUMBAR NM ARTHRODESIS POST/POSTEROLATERAL TECH SGL INTERSPACE EACH ADDL INTERSPACE NM INSTRUMENTATION POSTERIOR SEGMENTAL 3 TO 6 VERTEBRAL SEGMENTS L4-S1 Posterior lumbar laminectomy and fusion with instrumentation Chan Molina MD [address] [place] [address] [facility] [place] [address] [place] [address] Referral ID Status Reason Start Date Expiration Date Visits Re quested Visits Authorized [id number] 1 1 [facility] Chief Complaint and Reason for Visit Chief Complaint FOOT AND LUMBAR XRAY S Chief Complaint RADIOCULOPATHY LUMBA R REGION RADIOCULOPATHY LUMBAR REGION Chief Complaint ELEVATED PSA Chief Complaint ELEVATED PSA PREPROCEDURAL PREOP Chief Complaint ELEVATED PSA PREPROCEDURAL PREOP Prostate Biopsy, ultrasound guidanc Chief Complaint Admit Date lower ext December 30, 2024 2 :28pm Advance Directives No Advanced Directives Records Found Advance Directive Response Recorded Date/ Time Living Will Yes September 18 9:21pm Power of Airframe Design Engineer Yes September 18, 2019 9:21pm Advance Directive Response Recorded Date/ Time Living Will Yes September 18 10:21pm Power of Airframe Design Engineer Yes September 18, 2019 10:21pm Advance Directive Response Recorded Date/ Time Name of Medical Power of Airframe Design Engineer December 07, 2023 11:15am Living Will Yes December 07 11:15am Power of Airframe Design Engineer Yes December 07, 2023 11:15am Advance Directive Response Recorded Date/ Time Living Will Yes December 30 5:13pm Power of Airframe Design Engineer Yes December 30, 2024 5:13pm Name of Medical Power of Airframe Design Engineer VALERIE JACOBS December 30, 2024 5:13pm Advance Directive Response Recorded Date/ Time Living Will Yes December 30 5:13pm Do you have a Healthcare Power of Airframe Design Engineer? Yes December 30, 2024 5:13pm Name of Medical Power of Airframe Design Engineer VALERIE JACOBS December 30, 2024 5:13pm Summary Purpose Family History No Family History Records Found Additional Source Comments Care Teams (unrecognized sec tion and content) Team Status: Active Member Role Status Dates Dr. Eron Moody MD Family Provider Active Dr. Eron Moody MD Primary Care Provider Activ e Team Status: Inactive Member Role Status Dates Dr. Eron Moody MD Primary Care Provider, Attending Provider, Referring Provider Active Senior Clerk Relationship Specialty Start Date End Date Bree Moody MD [address] [place] [address] PCP - General Family Medicine 02/06/23 Senior Clerk Relationship Specialty Start Date End Date Bree Moody MD [address] [place] [address] PCP - General Family Medicine 02/06/23 Team Status: Active Member Role Status Dates Dr. Eron Moody MD Primary Care Provider Activ e Dr. Matt Oropeza DPM Referring Provider, Other Pro vider Active Dr. Yayo Martin MD Attending Provider Active Team Status: Inactive Member Role Status Dates Dr. Eron Moody MD Primary Care Provider Activ e Dr. Matt Oropeza DPM Attending Provider, Referring Provider Active Team Status: Inactive Member Role Status Dates Dr. Eron Moody MD Primary Care Provider, Atte nding Provider Active Team Status: Inactive Member Role Status Dates Dr. Eron Moody MD Primary Care Provider Activ e Dr. Hussain Gilliland MD Attending Provider, Referr ing Provider Active Team Status: Active Member Role Status Dates Dr. Eron Moody MD Primary Care Provider Activ e Dr. Jim Pearce MD Attending Provider Active Dr. Hussain Gilliland MD Referring Provider Active Team Status: Active Member Role Status Dates Dr. Bree Moody MD Primary Care Provider Acti ve Team Status: Inactive Member Role Status Dates Dr. Bree Moody MD Primary Care Provider Acti ve Start: December 30, 2024 End: December 30, 2024 Dr. Job Crum DO Attending Provider Active Start : December 30, 2024 End: December 30, 2024 Dr. Job Crum DO Emergency Provider Active Start : December 30, 2024 End: December 30, 2024 Team Status: Inactive Member Role Status Dates Dr. Bree Moody MD Primary Care Provider Acti ve Start: January 22, 2025 End: January 22, 2025 Dr. Bree Moody MD Attending Provider Active Start: January 22, 2025 End: January 22, 2025 Dr. Bree Moody MD Referring Provider Active Start: January 22, 2025 End: January 22, 2025 Team Status: Inactive Member Role Status Dates Dr. Bree Mooyd MD Primary Care Provider Acti ve Start: February 28, 2025 End: February 28, 2025 Helen Valdezing Attending Provider Active Start : February 28, 2025 End: February 28, 2025 Helen Valdezing Referring Provider Active Start : February 28, 2025 End: February 28, 2025 Goals (unrecognized section and content) Goals may be documented in a n alternate sectionGoals may be documented in an alternate sectionGoals may be documented in an alternate sectionGoals may be documented in an alternate sectionGoals may be documented in an alternate sectionGoals may be documented in an alternate sectionGoals may be documented in an alternate section Ordered Prescriptions (unrec ognized section and content) Prescription Sig Dispensed Refills Start Date End Da te oxyCODONE (ROXICODONE) 5 mg immediate release tablet Take 1 tablet (5 mg total) by mouth every 4 (four) hours if needed for moderate pain for up to 7 days. Max Daily Amount: 30 mg 40 tablet 0 02/25/2023 03/04/2023 Scheduled Active and Recently Administ ered Medications (unrecognized section and content) Medication Order 02/23/2023 02/24/2023 02/25/2023 acetaminophen (TYLENOL) tablet 1,000 mg 1,000 mg, oral, 3 times daily, First dose on Mon02/24/23 at 2100 2006 (Given - Provider: Rani Bartlett RN) 0840 (Given - Provider: Yaima Mendoza RN)1400 (Canceled Entry - Provider: Automatic Discharge Provider - Comment: Automatically canceled at discontinue of medication order) ceFAZolin (ANCEF) 2 gram/20 mL IV syringe 2 g (COMPLETED) 2 g, intravenous, Administer over 3 Minutes, Once, On Mon02/24/23 at 0900, For 1 dose, Preprocedure, Administer within 60 minutes of incision For pt under 120 KG, Indication: Prophylaxis-Surgical 1158 (Given - Provider: MARIPOSA Anderson) ceFAZolin (ANCEF) 2 gram/20 mL IV syringe 2 g (COMPLETED) 2 g, intravenous, Administer over 3 Minutes, Every 8 hours, First dose on Mon02/24/23 at 2000, For 2 doses, Recovery & On Unit, Indication: Prophylaxis-Surgical 2005 (Given - Provider: Rani Bartlett RN) 0410 (Given - Provider: Rani Bartlett RN) celecoxib (CeleBREX) capsule 200 mg (COMPLETED) 200 mg, oral, Once, On Mon02/24/23 at 0900, For 1 dose, Preprocedure, If not allergic to NSAIDs 0916 (Given - Provider: Autumn Hoang RN) dexamethasone (DECADRON) injection 8 mg (COMPLETED) 8 mg, intravenous, Once, On Mon02/24/23 at 0900, For 1 dose, Preprocedure 1200 (Given - Provider: MARIPOSA Anderson) docusate sodium (COLACE) capsule 100 mg 100 mg, oral, 2 times daily, First dose on Mon02/24/23 at 2100 2005 (Given - Provider: Rani Bartlett RN) 0840 (Given - Provider: Yaima Mendoza RN) lactated Ringer's infusion (COMPLETED) 20 mL/hr, intravenous, Once, On Mon02/24/23 at 0900, For 1 dose, Preprocedure 0916 (New Bag - Provider: Autumn Hoang, CHRISTINA) lisinopriL 20 mg, hydroCHLOROthiazide 25 mg (for ZESTORETIC) oral, Daily, First dose on Mon02/26/23 at 0900, May resume postop day 1. Hold for systolic blood pressure less than 110 Give both components for ZESTORETIC product lisinopriL 20 mg, hydroCHLOROthiazide 25 mg (for ZESTORETIC) (COMPLETED) oral, Once, On Mon02/25/23 at 1000, For 1 dose, Hold for sbp < 110 Give both components for ZESTORETIC product 1030 (Given - Provid er: Yaima Mendoza RN) polyethylene glycol (MIRALAX) packet 17 g 17 g, oral, Daily, First dose on Mon02/24/23 at 2000, Please begin day of surgery. May hold for large bowel movement. Notify GEN med if patient refuses 2004 (Given - Provider: Rani Bartlett RN) 0839 (Given - Provider: Yaima Mendoza RN) potassium chloride (KLOR-CON M20) CR tablet 40 mEq (COMPLETED) 40 mEq, oral, Once, On Mon02/25/23 at 1015, For 1 dose, Tablet may be swallowed whole (do not crush/chew/suck on) OR broken in half and each half swallowed separately OR dissolved (whole tablet) in ~4 ounces of water (allow ~2 minutes to dissolve, stir well and administer immediately). 1030 (Given - Provid er: Yaima Mendoza RN - Comment: k = 3.4) senna (SENOKOT) tablet 17.2 mg 17.2 mg (2 tablet), oral, 2 times daily, First dose on Mon02/24/23 at 2100 2005 (Given - Provider: Rani Bartlett RN) 0839 (Given - Provider: Yaima Mendoza RN) tranexamic acid (CYKLOKAPRON) injection 1,000 mg (COMPLETED) 1,000 mg, intravenous, Administer over 10 Minutes, Once, On Mon02/24/23 at 0900, For 1 dose, Preprocedure, Not to exceed 100 mg (1 mL) per minute., Tranexamic Acid Indication: Surgical Prophylaxis: Orthopedic 1157 (Given - Provider: MARIPOSA Anderson - Comment: psr) Continuous Medication Order 02/23/2023 02/24/2023 02/25/2023 lactated Ringer's infusion 100 mL/hr, intravenous, Continuous, Starting on Mon02/24/23 at 1530 1531 (Continued from OR - Provider: Trinity Flores RN)2004 (New Bag - Provider: Rani Bartlett RN) 041 (New Bag - Provider: Rani Bartlett RN) [...] Recovery (only) 1424 (Given - Provider: Nora Noel RN) Oxygen Therapy, Adult inhalation, at 2 mL/hr, As needed, Titrate 1-4 lpm to maintain O2 sats above 90%. If Flow is increased above 4 Lpm, Please contact [facility] physcian., Starting on Mon02/24/23 at 1506, Titrate 1-4 lpm to maintain O2 sats above 90%. If Flow is increased above 4 Lpm, Please contact [facility] physcian., Device: Nasal Cannula, Rate in liters [...] sect ion and content) No Status Records FoundNo Status Records Found INFORMATION SOURCE (unrecogn ized section and content) DATE CREATED AUTHOR 03/01/2023 [facility] DATE CREATED AUTHOR AUTHOR'S ORGANIZ ATION 09/08/2025 [facility] FOR RECORDS PERTAINING TO PATIENTS WHO ARE [...] BE BASED ON THE PRIMARY CLINICAL RECORDS. [facility] [email or web address] [facility] provides no warranty or guarantee of the accuracy or completeness of information in this document.
== END | disposition home or self-care (01) ==
LOC: OPMRI 07:54
PROVIDERS: PCP Family Medicine; Referring Provider Urology; Visit Provider Urology
DX: C61 Malignant neoplasm of prostate (principal)
CPT/HCPCS: 72197; A9581; A4216